=== PATIENT | male | born 1940 | race Caucasian/White ===

== ENCOUNTER 2016-10-01 16:08 | Inpatient (IN) ==
[2016-10-01] MEDS ORDERED: ROCEPHIN 1 GM in SODIUM CHLORIDE 50 ML IV STA (17:00)
[2016-10-01] MEDS: DEXTROSE 5%-1/2NS IV SOLUTION 1,000 ML IV SCH (17:00)
[2016-10-01] MEDS ORDERED: VISTARIL INJ IM PRN (17:06)
[2016-10-01] MEDS ORDERED: ATROPINE SULFATE PFS IVP PRN (17:06)
[2016-10-01] MEDS ORDERED: NITROSTAT SL PRN (17:06)
[2016-10-01] MEDS ORDERED: TYLENOL PO PRN (17:06)
[2016-10-01] MEDS ORDERED: MORPHINE 4 MG/ML SYRINGE IVP PRN (17:06)
[2016-10-01 17:31] LABS: BASOPHILS % (AUTO) 0.5 % (0.0-3.0); HEMATOCRIT 38.8 % (42.0-52.0); HEMOGLOBIN 13.4 g/dl (14.0-18.0); IMMATURE GRANULOCYTE % (AUTO) 0.2 % (0.0-5.0); LYMPHOCYTES # (AUTO) 0.9 K/uL (0.60-3.4); LYMPHOCYTES % (AUTO) 15.2 (10.0-50.0); MEAN CORPUSCULAR HGB CONC 34.5 (31.8-35.4); MEAN CORPUSCULAR VOLUME 89.8 fl (80.0-94.0); MONOCYTES # (AUTO) 0.7 K/uL (0.4-2.0); MONOCYTES % (AUTO) 11.5 (0-10); NEUTROPHILS # (AUTO) 4.1 K/ul (2.0-6.9); NEUTROPHILS % (AUTO) 72.6; PLATELET COUNT 111 10^3/uL (140-440); RED BLOOD COUNT 4.32 10^6/ul (4.70-6.10); WHITE BLOOD COUNT 5.64 K/ul (4.2-10.2)
[2016-10-01 17:34] LABS: ABG BASE EXCESS -2 (-2.0-2.0); ABG HCO3 21.5 (22.0-26.0); ABG PCO2 30.7 mmHg (35-45); ABG PH 7.454 (7.35-7.45); ABG TCO2 22 (22.0-28.0)
[2016-10-01 18:00] LABS: ALBUMIN 3.3 g/dL (3.4-5.0); ALBUMIN/GLOBULIN RATIO 0.97; ANION GAP 12.1; BILIRUBIN,TOTAL 1.73 mg/dL (0.00-1.20); BUN/CREATININE RATIO 14.63; CALCIUM 8.5 mg/dL (8.2-10.2); CREATININE 0.82 mg/dL (0.60-1.10); POTASSIUM 4.1 mmol/L (3.5-5.1); TOTAL PROTEIN 6.7 g/dL (5.8-8.1); TROPONIN I 0.024 ng/ml (0.0000-0.4000)
--- NOTE | 2016-10-01 18:23 | DI ---
EXAM: Chest two view, frontal and lateral views. HISTORY: Fever. Pneumonitis. COMPARISON: 04/09/2015. FINDINGS: Left-sided pacemaker noted. Heart size is normal. Atherosclerotic calcifications presen t. There is no vascular congestion. Calcified granulomatous changes noted. No consolidation, pleu ral effusion or pneumothorax identified. Degenerative changes present in the spine. Since the prio r study, there has been no significant interval change. IMPRESSION: No acute process.
[2016-10-01 18:27] LABS: FLU INTERNAL QC INTERNAL QC VALID; RAPID FLU A NEGATIVE (NEGATIVE); RAPID FLU B NEGATIVE (NEGATIVE)
[2016-10-01 18:46] VITALS: BMI 25.2
[2016-10-01] MEDS ORDERED: ROCEPHIN ONE (19:22)
[2016-10-01] MEDS ORDERED: OMEGA-3 FISH OIL ONE (20:35)
[2016-10-01] MEDS: PRADAXA PO SCH (20:40)
[2016-10-01] MEDS: DOXYCYCLINE HYCLATE PO SCH (20:40)
[2016-10-01] MEDS: TENORMIN PO SCH (20:41)
[2016-10-01] MEDS ORDERED: SOLU-MEDROL 125 MG ONE (20:57)
[2016-10-01] MEDS: SOLU-MEDROL 125 MG IVP SCH (20:58)
[2016-10-01] MEDS ORDERED: FATTY ACIDS PO SCH (21:00)
[2016-10-01] MEDS ORDERED: OMEGA PO SCH (21:00)
[2016-10-01] MEDS ORDERED: [UNRECOGNIZED DRUG - OTHER] PO SCH (21:00)
[2016-10-01] MEDS ORDERED: FISH OIL PO SCH (21:00)
[2016-10-01 21:32] LABS: BILIRUBIN,URINE Negative (NEGATIVE); KETONES,URINE Negative (NEGATIVE); LEUKOCYTE ESTERASE ,URINE Negative (NEGATIVE); NITRITE,URINE Negative (NEGATIVE); PROTEIN,URINE 1+ (NEGATIVE); URINE, BLOOD 1+ (NEGATIVE)
[2016-10-01 21:38] LABS: ADD URINE MICROSCOPIC YES
[2016-10-02 01:49] LABS: TROPONIN I 0.033 ng/ml (0.0000-0.4000)
[2016-10-02] MEDS ORDERED: SOLU-MEDROL 125 MG ONE (04:49)
[2016-10-02] MEDS: DEXTROSE 5%-1/2NS IV SOLUTION 1,000 ML IV SCH ×2 (04:56→16:30)
[2016-10-02] MEDS: SOLU-MEDROL 125 MG IVP SCH (04:56)
[2016-10-02] MEDS: OMEGA-3 FISH OIL PO SCH ×2 (08:44→21:14)
[2016-10-02] MEDS: DOXYCYCLINE HYCLATE PO SCH ×2 (08:44→21:14)
[2016-10-02] MEDS: ASPIRIN EC PO SCH (08:44)
[2016-10-02] MEDS: PRADAXA PO SCH ×2 (08:44→21:13)
[2016-10-02] MEDS: TENORMIN PO SCH (08:44)
[2016-10-02] MEDS: COZAAR PO SCH (08:44)
[2016-10-02] MEDS: ROCEPHIN 1 GM in SODIUM CHLORIDE 50 ML IV SCH (08:45)
[2016-10-02] MEDS: SOLU-CORTEF 250 MG IVP SCH ×2 (13:09→20:28)
[2016-10-03] MEDS: DEXTROSE 5%-1/2NS IV SOLUTION 1,000 ML IV SCH ×2 (03:30→05:09)
[2016-10-03] MEDS: SOLU-CORTEF 250 MG IVP SCH ×2 (05:08→12:46)
[2016-10-03 07:50] LABS: BASOPHILS % (AUTO) 0.1 % (0.0-3.0); HEMATOCRIT 36.9 % (42.0-52.0); HEMOGLOBIN 13.3 g/dl (14.0-18.0); IMMATURE GRANULOCYTE % (AUTO) 0.7 % (0.0-5.0); LYMPHOCYTES # (AUTO) 1.2 K/uL (0.60-3.4); LYMPHOCYTES % (AUTO) 5.9 (10.0-50.0); MEAN CORPUSCULAR HEMOGLOBIN 31.7 pg (27.0-31.0); MEAN CORPUSCULAR VOLUME 88.1 fl (80.0-94.0); MONOCYTES # (AUTO) 1.2 K/uL (0.4-2.0); NEUTROPHILS # (AUTO) 17.5 K/ul (2.0-6.9); NEUTROPHILS % (AUTO) 87.3; PLATELET COUNT 137 10^3/uL (140-440); RED BLOOD COUNT 4.19 10^6/ul (4.70-6.10)
[2016-10-03 07:54] LABS: WHITE BLOOD COUNT 20.04 K/ul (4.2-10.2)
[2016-10-03 07:59] LABS: ALBUMIN/GLOBULIN RATIO 0.86; ANION GAP 8.7; BILIRUBIN,TOTAL 1.03 mg/dL (0.00-1.20); BUN/CREATININE RATIO 19.23; CALCIUM 8.7 mg/dL (8.2-10.2); CREATININE 0.78 mg/dL (0.60-1.10); POTASSIUM 3.7 mmol/L (3.5-5.1); TOTAL PROTEIN 6.5 g/dL (5.8-8.1)
[2016-10-03] MEDS: ROCEPHIN 1 GM in SODIUM CHLORIDE 50 ML IV SCH (08:16)
[2016-10-03] MEDS: PRADAXA PO SCH (08:16)
[2016-10-03] MEDS: DOXYCYCLINE HYCLATE PO SCH (08:16)
[2016-10-03] MEDS: OMEGA-3 FISH OIL PO SCH (08:16)
[2016-10-03] MEDS: COZAAR PO SCH (08:16)
[2016-10-03] MEDS: TENORMIN PO SCH (08:16)
[2016-10-03] MEDS: ASPIRIN EC PO SCH (08:16)
--- NOTE | 2016-10-03 09:52 | PCM.PROG ---
Attending Provider: ATTENDING PROVIDER: Dr. DEBRA DYER DATE OF SERVICE: 10/03/16 SUBJECTIVE: This 76 year old WHITE/ M was hospitalized 10/01/16 with acute pneumonia/bronchitis. The patient states he is feeling better. He states he hasn't coughed much. He has not had any fever since 6 p.m. on the day of admission. He has a good appetite. No complaint of aches or pains. He states he is ready to go home; discussed discharge with the patient. REVIEW OF SYSTEMS: CONSTITUTIONAL: No night sweats. No fatigue, malaise, lethargy. No fever or chills. HEENT: Eyes: No visual changes. No eye pain. No eye discharge. ENT: No runny nose. No epistaxis. No sinus pain. No odynophagia. No congestion. RESPIRATORY: No cough, no congestion. No hemoptysis. CARDIOVASCULAR: No angina symptoms. No CHF symptoms. No atypical chest pain for CAD. No palpitations. No shortness of breath. GASTROINTESTINAL: No abdominal pain. No nausea or vomiting. No diarrhea or constipation. No hematemesis. No hematochezia. GENITOURINARY: No urgency. No frequency. No dysuria. No hematuria. No obstructive symptoms. No discharge. No pain. No significant abnormal bleeding. MUSCULOSKELETAL: No musculoskeletal pain; no joint swelling. NEUROLOGICAL: Awake, alert, oriented to time, place and person. No headache. No neck pain. No syncope. No seizures. No dizziness. PSYCHIATRIC: Not anxious. No depression. No suicidal thoughts. No homicidal thoughts. SKIN: No rash. No lesions. No wounds. ENDOCRINE: No unexplained weight loss. No weight gain. HEMATOLOGIC/LYMPHATIC: No anemia. No purpura. No petechiae. No prolonged or excessive bleeding. No palpable lymph nodes. PHYSICAL EXAMINATION: GENERAL: The patient is awake, alert and oriented, lying in bed in no distress. VITAL SIGNS: Temperature 97.4 F, Pulse 73, Respiratory Rate 16, BP 135/80, Pulse Ox 96% HEENT: Head normocephalic, atraumatic. Eyes: Extraocular muscles are intact. Pupils are equal, round and reactive to light and accommodation. Ears: No lesions. Nose appeared normal. Throat: No exudate or erythema. NECK: Supple. No JVD, no carotid bruit. No lymphadenopathy or thyromegaly. LUNGS: Clear to auscultation. Percussion note normal. Chest symmetrical. HEART: S1, S2, no S3. No murmurs. No cyanosis or clubbing. No ascites. Pulses: Dorsalis pedis and posterior tibial pulses +1 to +2 both sides. ABDOMEN: Soft. Non-tender. Bowel sounds active. No CVA tenderness. No mass felt. EXTREMITIES: No edema. Full range of motion of all extremities, equal. NEUROLOGIC: No focal deficit. Cranial nerves II through XII are grossly intact. No headache, no double vision or headache. SKIN: Not dry. Intact. Turgor-normal. LYMPHATIC: No palpable lymph nodes/no lymphedema. MUSCULOSKELETAL: Normal joints with no swelling. Muscle tone is normal. LAB REVIEW: 10/01/16 17:20 10/01/16 17:20 ASSESSMENT: 1. Acute pneumonitis resolving 2. Acute bronchitis resolving 3. Ventricular paced rhythm with PVCs PLAN: 1. Possible discharge home today on antibiotics 2. PFT today Plan and coordination of the patient's care discussed in the presence of Computer Project Manager and nurse. CONDITION: Stable SCRIBED BY: Ritesh WINSTON scribed while in presence of service performed by Dr. DEBRA DYER/ALYCE LOVING APRN on 10/03/16 ([id number])
[2016-10-03 10:10] VITALS: BP 141/82; TEMP 97.5
--- NOTE | 2016-10-03 11:54 | PN ---
DATE OF SERVICE: 10/02/16 SUBJECTIVE: The patient is a 76 year old white male hospitalized on 10/01/16 with fever of 102 almost climbed up to 103 with symptoms of sinusitis and bronchitis. The patient also had history fo tick bites. The patient has been treated with IV antibiotics Rocephin and Doxycycline. This morning the patient is feeling a lot better and he is afebrile and his appetite has improved. His hydration status has improved. REVIEW OF SYSTEMS: CONSTITUTIONAL: No night sweats. No fatigue, malaise, lethargy. No fever or chills. HEENT: Eyes: No visual changes. No eye pain. No eye discharge. ENT: No runny nose. No epistaxis. No sinus pain. No sore throat. No odynophagia. No congestion. RESPIRATORY: No cough, no congestion. No hemoptysis. CARDIOVASCULAR: No angina symptoms. No CHF symptoms. No atypical chest pain for CAD. No palpitations. No shortness of breath. GASTROINTESTINAL: No abdominal pain. No nausea or vomiting. No diarrhea or constipation. No hematemesis. No hematochezia. GENITOURINARY: No urgency. No frequency. No dysuria. No hematuria. No obstructive symptoms. No discharge. No pain. No significant abnormal bleeding. MUSCULOSKELETAL: No musculoskeletal pain; no joint swelling. NEUROLOGICAL: No headache. No neck pain. No syncope. No seizures. No dizziness. PSYCHIATRIC: Not anxious. No depression. No suicidal thoughts. No homicidal thoughts. SKIN: No rash. No lesions. No wounds. ENDOCRINE: No unexplained weight loss. No weight gain. HEMATOLOGIC/LYMPHATIC: No anemia. No purpura. No petechiae. No prolonged or excessive bleeding. No palpable lymph nodes. PHYSICAL EXAMINATION: GENERAL: The patient is oriented to time, place and person. VITAL SIGNS: Temperature 97, pulse 73, respiratory rate 16, blood pressure 123/ 76 and pulse ox 96%. HEENT: Head normocephalic, atraumatic. Eyes: Extraocular muscles are intact. Pupils are equal, round and reactive to light and accommodation. Ears: No lesions. Nose appeared normal. Throat: No exudate or erythema. NECK: Supple. No JVD, no carotid bruit. No lymphadenopathy or thyromegaly. LUNGS: Decreased breath sounds but clear to auscultation. Percussion note normal. Chest symmetrical. HEART: S1, S2, no S3. No murmurs. No cyanosis or clubbing. No ascites. Pulses: Dorsalis pedis and posterior tibial pulses +1 to +2 both sides. ABDOMEN: Soft. Nontender. Bowel sounds active. No CVA tenderness. No mass felt. EXTREMITIES: No edema. Full range of motion of all extremities, equal. NEUROLOGIC: No focal deficit. Cranial nerves II through XII are grossly intact. No headache, no double vision or headache. SKIN: Not dry. Intact. Turgor - normal. LYMPHATIC: No palpable lymph nodes/no lymphedema. MUSCULOSKELETAL: Normal joints with no swelling. Muscle tone is normal. LABS: hgb 13, hct 38, WBC 5,600 normal differential, creatinine 0.8, BUN 12, potassium 4.1, glucose 154 ASSESSMENT: 1. Acute pneumonitis/bronchitis seems to be resolving 2. Dehydration, the patient is a lot better and his hydration status has improved. Appetite still not up to par but he feels like he is going to have his breakfast. 3. Chronic lung disease with possibility to asthma 4. Hypertension 5. Pacemaker PLAN: 1. Doxycycline 100mg twice a day 2. Ceftriaxone 1gram Q 24 3. Solu-Medrol 125mg Q 8 hours 4. Solu-Cortef 125mg Q 8 hours 5. Morphine Sulfate 2-4mg IV 6. IV fluids to be continued 7. Pradaxa to be continued 8. Atenolol to be continued CONDITION: Stable TIME SPENT: More than 30 minutes. Plan and coordination of the patient's care discussed in the presence of nurse. ROBERTO CARLOS
--- NOTE | 2016-10-03 13:11 | HP ---
DATE OF SERVICE: 10/01/16 REASON FOR HOSPITALIZATION/HISTORY OF PRESENT ILLNESS: This is a 76-year-old white male who states he had a slight cough on Saturday and has progressively worsened. He started having chills last night with slight shortness of breath. Temperature max was 102. He has had multiple tick bites for greater than 10 days. REVIEW OF SYSTEMS: CONSTITUTIONAL: Fever and fatigue. HEENT: No sinus drainage, no sore throat. RESPIRATORY: Cough. No hemoptysis. CARDIOVASCULAR: Shortness of breath. No atypical chest pain for coronary artery disease. No angina, CHF symptoms, or palpitations. GASTROINTESTINAL: No melena or abdominal pain. No GERD. GENITOURINARY: No hematuria, no prostatism, no polyuria. FISHING GUIDE: No blackout, no dizziness, no headache, no double vision. MUSCULOSKELETAL: Osteoarthritic pain. ENDOCRINE: Weight loss of 3 lbs. SKIN: Not dry, no rash. PSYCHIATRIC: Not anxious, no depression, no suicidal thoughts, no homicidal thoughts. PAST MEDICAL HISTORY: 1. CA prostate 2. Atrial fibrillation 3. Pacemaker 4. Asthma 5. Hyperglycemia 6. Malignant melanoma 7. Left ventricular ejection fraction 45% PAST SURGICAL HISTORY: 1. Gallbladder 2. Prostate surgery 1990 3. Pacemaker SOCIAL HISTORY: . Nonsmoker. No alcohol use. No ilicit drug use. Two children. Retired. FAMILY HISTORY: Father at age 87. Mother from a car accident. Three brothers. Five sisters. MEDICATIONS: 1. Atenolol 50 mg p.o. once daily at bedtime 2. Cozaar 100 mg one p.o. daily a.m. 3. Pravastatin 40 mg p.o. once daily 4. Pradaxa 150 mg two times per day ALLERGIES: SULFA PHYSICAL EXAMINATION: V/S: Pulse 82, BP 144/80, temperature 102.2, 02 sat 97%. Weight 165.2. Height 5 '8". BMI 25.1. GENERAL APPEARANCE: Oriented times three. HEENT: Normal. NECK: No JVP, no bruits. RESPIRATORY: Lungs are clear with decreased breath sounds. CARDIOVASCULAR: S1, S2, no S3, no murmurs. No cyanosis, clubbing. No ascites. GI/ABDOMEN: No tenderness. Bowel sounds are active. EXTREMITIES: No edema, pulses +1, equal. FISHING GUIDE: Deep tendon reflexes, sensory, motor and gait all normal. RECTAL/PROSTATE: 2 (0.3). Dr. Jimenez 03/14 endoscopy. ASSESSMENT: 1. ACUTE PNEUMONITIS/BRONCHITIS 2. FEBRILE ILLNESS, PLEURITIC PAIN CENTER OF CHEST 3. ATRIAL FIBRILLATION ON PRADAXA 4. CANCER, PROSTATE 5. HYPERGLYCEMIA 6. MALIGNANT MELANOMA 7. PACEMAKER, DR. MCNAIR 8. LEFT VENTRICULAR EJECTION FRACTION 45% WITH HYPOKINETIC LV 9. ASTHMA PLAN: 1. Admit 2. Routine telemetry orders 3. Regular diet 4. Continue all home medications 5. Rapid flu A/B test 6. Solu-Cortef 125 mg IV q.8hourly 7. Lyme serology 8. Doxycycline 100 mg p.o. b.i.d. daily 9. Rocephin 1 gm IV PB now and 24 hourly 10. Sputum for culture and sensitivity 11. Blood cultures times two 12. Oxygen 1 to 2L 13. ABG on room air 14. Daily CBC and CMP 15. IV fluids 1000 cc D5 1/2 NS 12 hourly TIME SPENT: More than 70 minutes. MTDD
--- NOTE | 2016-10-04 15:14 | DS ---
DATE OF SERVICE: 10/03/16 FINAL DIAGNOSIS: 1. Acute pneumonitis/bronchitis 2. Hypertension 3. Dyslipidemia 4. Atrial fibrillation 5. Cardiomyopathy 6. Mild Anemia 7. Glucose intolerance 8. Prostate cancer 9. Malignant Melanoma 10. Asthma 11. Non-smoker 12. Pacemaker insertion 13. Prostate Surgery, 1990 14. Cholecystectomy LAST VITALS: Temperature 97.5, pulse 74, respiratory rate 16, blood pressure 141/82 and pulse ox 96%. DISCHARGE INSTRUCTIONS: Discharge home today. Return to see Dr. Delarosa in one week. Resume home medications as per list provided by the nursing staff. MEDICATIONS AT DISCHARGE: Tenormin 50mg PO daily Pradaxa 150mg PO twice a day Doxycycline 100mg PO Q 12 hours [place]-3 Fish oil 1,000mg PO twice a day Cozaar 100mg Po daily Pravastatin 20mg PO daily ALLERGIES: No known allergies NEW PRESCRIPTIONS: Doxycycline 100mg take one tablet by mouth twice daily for 7 days DIET INSTRUCTIONS: Healthy heart ACTIVITY: Get plenty of rest at home. Gradually increase activity level according to toleration. SMOKING: Nonsmoker DISEASE SPECIFIC EDUCATION: Pneumonitis/Bronchitis Home medications New prescriptions Followup Activities Diet HOSPITAL COURSE: The patient is a 76 year old white male hospitalized with acute pneumonitis/ bronchitis with high fever. The patient also had history of a lot of tick bites. The patient's condition improved on Rocephin and Doxycycline. The patient was given intermittent steroids with IV fluids. His appetite has improved and he is up and about. He is feeling a lot better. His cardiovascular status is stable. The patient will be discharged on Doxycycline. CONDITION: Stable TIME SPENT: More than 60 minutes. [facility]
--- NOTE | 2016-10-04 15:16 | PN ---
10/01/16: Level 5 10/02/16: Intermediate 10/03/16: D as in discharge MTDD
[2016-10-08 13:15] LABS: IGG P18 AB Absent (.); IGG P23 AB Absent (.); IGG P28 AB Absent (.); IGG P30 AB Absent (.); IGG P39 AB Absent (.); IGG P41 AB Present (.); IGG P45 AB Absent (.); IGG P58 AB Present (.); IGG P66 AB Absent (.); IGG P93 AB Absent (.); IGM P39 AB Absent (.); IGM P41 AB Absent (.)
[2016-10-08 13:29] LABS: LYME IGG WB INTERP Negative (.); LYME IGM WB INTERP Negative (.)
--- NOTE | 2016-10-08 14:49 | PN ---
DATE OF SERVICE: 10/03/16 SUBJECTIVE: 76-year-old white male hospitalized with acute pneumonitis/bronchitis with high fever, possibility of Ehrichicia exists. The patient's Ehrlichia titers are pending. REVIEW OF SYSTEMS: CONSTITUTIONAL: No night sweats. No fatigue, malaise, lethargy. No fever or chills. HEENT: Eyes: No visual changes. No eye pain. No eye discharge. ENT: No runny nose. No epistaxis. No sinus pain. No sore throat. No odynophagia. No congestion. RESPIRATORY: No cough, no congestion. No hemoptysis. CARDIOVASCULAR: No angina symptoms. No CHF symptoms. No atypical chest pain for CAD. No palpitations. No shortness of breath. GASTROINTESTINAL: No abdominal pain. No nausea or vomiting. No diarrhea or constipation. No hematemesis. No hematochezia. GENITOURINARY: No urgency. No frequency. No dysuria. No hematuria. No obstructive symptoms. No discharge. No pain. No significant abnormal bleeding. MUSCULOSKELETAL: No musculoskeletal pain; no joint swelling. NEUROLOGICAL: No headache. No neck pain. No syncope. No seizures. No dizziness. PSYCHIATRIC: Not anxious. No depression. No suicidal thoughts. No homicidal thoughts. SKIN: No rash. No lesions. No wounds. ENDOCRINE: No unexplained weight loss. No weight gain. HEMATOLOGIC/LYMPHATIC: No anemia. No purpura. No petechiae. No prolonged or excessive bleeding. No palpable lymph nodes. PHYSICAL EXAMINATION: GENERAL: The patient is oriented to time, place and person. VITAL SIGNS: Temperature 97.4, pulse 73, respiratory rate 16, BP 135/80, pulse ox 96%. HEENT: Head normocephalic, atraumatic. Eyes: Extraocular muscles are intact. Pupils are equal, round and reactive to light and accommodation. Ears: No lesions. Nose appeared normal. Throat: No exudate or erythema. NECK: Supple. No JVD, no carotid bruit. No lymphadenopathy or thyromegaly. LUNGS: Decreased breath sounds. Clear to auscultation. Percussion note normal. Chest symmetrical. HEART: S1, S2, no S3. No murmurs. No cyanosis or clubbing. No ascites. Pulses: Dorsalis pedis and posterior tibial pulses +1 to +2 both sides. ABDOMEN: Soft. Nontender. Bowel sounds active. No CVA tenderness. No mass felt. EXTREMITIES: No edema. Full range of motion of all extremities, equal. NEUROLOGIC: No focal deficit. Cranial nerves II through XII are grossly intact. No headache, no double vision or headache. SKIN: Not dry. Intact. Turgor - normal. LYMPHATIC: No palpable lymph nodes/no lymphedema. MUSCULOSKELETAL: Normal joints with no swelling. Muscle tone is normal. LABS: The patient's WBC count is 5,600, hemoglobin 13.4, hematocrit 38, WBC 5,600, normal differential. Creatinine 0.8, BUN 12, potassium 4.1. ASSESSMENT: 1. ACUTE PNEUMONITIS/BRONCHITIS/FEVER RESOLVED. 2. CHRONIC LUNG DISEASE. 3. PACEMAKER. EKG SHOWED NORMAL PACEMAKER FUNCTION, CAPTURING AND SENSING WELL. 4. PFT - FEV1 IS 2.7, 99% OF PREDICTED. PFT'S WERE NORMAL. PLAN: 1. The patient will be discharged home on Doxycycline. CONDITION: Stable. TIME SPENT: More than 30 minutes. Plan and coordination of the patient's care discussed in the presence of nurse. ROBERTO CARLOS
== END 2016-10-03 14:10 | disposition home or self-care (01) | DRG 194 ==
LOC: MEDSURG B 16:08
PROVIDERS: ADMIT Internal Medicine; ATTEND Internal Medicine
DX: J18.9 Pneumonia, unspecified organism (principal); J20.9 Acute bronchitis, unspecified; R50.9 Fever, unspecified; I42.9 Cardiomyopathy, unspecified; R06.02 Shortness of breath; T14.8 Other injury of unspecified body region; W57.XXXA Bitten or stung by nonvenomous insect and other nonvenomous arthropods, initial encounter; I48.91 Unspecified atrial fibrillation; I10 Essential (primary) hypertension; D64.9 Anemia, unspecified; J44.9 Chronic obstructive pulmonary disease, unspecified; E74.39 Other disorders of intestinal carbohydrate absorption; Z95.0 Presence of cardiac pacemaker; Z79.01 Long term (current) use of anticoagulants; Z79.899 Other long term (current) drug therapy; J45.998 Other asthma
CPT/HCPCS: 36415; 80053; 81001; 82550; 82803; 83874; 84484; 85025; 86617; 87040; 87798; 87804; 93005; 93010

== ENCOUNTER 2017-04-06 12:01 | Emergency (ER) | payer OTHER ==
[2017-04-06 12:07] VITALS: BP 148/91; TEMP 97.5; BMI 24.3
[2017-04-06] MEDS ORDERED: LIDOCAINE HCL 1% SDV SUBCUT STA (12:33)
[2017-04-06] MEDS ORDERED: LIDOCAINE HCL 1% SDV ONE (13:36)
--- NOTE | 2017-04-06 14:26 | DI ---
EXAM: RIGHT HAND, 3 VIEWS HISTORY: Hand pain FINDINGS: There is deformity of the distal second metacarpal bone suggesting a mildly displaced hirsch sverse fracture, likely acute. There is separation of the minimal portion of the medial base of the third proximal phalanx extending into the regional joint which is suggestive of a fracture. There is significant DIP osteoarthritis and at least mild osteoarthritis at the first carpal metacarpal joint and the lateral intercarpal articulations. IMPRESSION: Apparent fractures involving the second and third digits. Osteoarthritis.
--- NOTE | 2017-04-06 14:44 | ED.PDOC ---
General ED Provider: Dr. 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 Has sustained lacerations and abrassion to the right hand. Senstaion and movement is still intact. Time Seen by Physician: 14:31 Mode of Arrival: Walk-In Information Source: Patient, Family Exam Limitations: No limitations Primary Care Provider: DEBRA DYER Nursing and Triage Documentation Reviewed and Agree: Yes Skin Complaint Exam - Laceration/Abrasion/Hand Complaint/Exam Location of Injury: Right, Hand, Digit #1, Digit #2, Digit #3, Digit #4 Mechanism of Injury: Laceration, Abrasion Onset/Duration: 1 hour Symptoms Are: Still present Initial Severity: Severe Current Severity: Moderate Aggravating: Movement Alleviating: Compression Associated Signs and Symptoms: Denies: Fever, Chills, Erythema, Numbness, Tingling Related History: Reports: Right hand dominant Hand Picture: 1 - deep laceration with hand muscle visible. 2 - deep laceration with hand muscle visible. 3 - 3 cm deep laceration 4 - skin abrassion 5 - skin abrassion 6 - skin abrassion Differential Diagnoses: Abrasion, Open Fracture, Laceration Review of Systems - Review Of Systems Constitutional: Reports: No symptoms Eyes: Reports: No symptoms Ears, Nose, Mouth, Throat: Reports: No symptoms Respiratory: Reports: No symptoms Cardiac: Reports: No symptoms GI: Reports: No symptoms : Reports: No symptoms Musculoskeletal: Reports: Joint pain Skin: Reports: Bruising, Other (laceration right hand ) Neurological: Reports: Anxiety Endocrine: Reports: No symptoms Hematologic/Lymphatic: Reports: No symptoms All Other Systems: Reviewed and Negative Past Medical History - Past Medical History Previously Healthy: No Endocrine: Reports: Dyslipidemia Cardiovascular: Reports: CAD, Hypertension, A-Fib (on Pradaxa ) Respiratory: Reports: None Hematological: Reports: None Gastrointestinal: Reports: None Genitourinary: Reports: None Neuro/Psych: Reports: None Musculoskeletal: Reports: None Cancer: Reports: Other (prostate 1991) - Surgical History General Surgical History: Reports: Cholecystectomy (1984), Pacemaker (1991), Hernia Repair - Family History Family History: Reports: Unknown - Social History Smoking Status: Never smoker Hx Substance Use: No Alcohol Screening: None - Immunizations Tetanus Shot up to Date: (2010) Physical Exam - Physical Exam Appearance: Ill-appearing Ill-appearing: Mild Pain Distress: Severe Respiratory: Airway patent Musculoskeletal: ROM intact Skin: Warm, Dry Neurological: Sensation intact (no decreased sestation on the right hand laceration. ), Motor intact (Good flexion and extension noted on right hand and digit examination. ) Psychiatric: Anxious Procedures - Laceration/Wound Repair Right hand Wound Description: Irregular Wound Length (cm): 7 cm Wound Width: 3 Wound Depth: 1 Wound Explored: Clean Wound Irrigated: Yes Wound Prep: Saline, Hibiclens Anesthesia: Lidocaine Undermining: Moderate Wound Margins: Revised Wound Repaired With: Sutures Suture Size and Type: 5.0 Ethlone Number of Sutures: 28 (Running. ) Layer Closure?: No Sterile Dressing Applied?: Yes Splint Applied?: Yes Type of Splint Applied: Velcrol Sling Applied?: No Progress: Tolerated well. Right distal thumb Wound Description: Irregular Wound Length (cm): 3 Wound Width: 0.4 Wound Depth: 0.3 Wound Explored: Clean Wound Irrigated: No Wound Prep: Saline, Hibiclens Anesthesia: Lidocaine, Digital nerve block Wound Repaired With: Sutures Suture Size and Type: 4.0 Ethlone Number of Sutures: 9 (Running.) Layer Closure?: No Sterile Dressing Applied?: Yes Splint Applied?: Yes Progress: Tolerated fairly Critical Care Note - Critical Care Note Total Time (mins): 0 Course - Course Orders, Labs, Meds: Orders Category Date Time Status Cephalexin [Keflex] MEDS 04/06/17 14:51 Discontinued 500 mg PO ONCE STA Hydrocodone Bit/Acetaminophen [[place] 7.5-325] MEDS 04/06/17 14:52 Discontinued 1 tab PO ONCE STA Lidocaine HCl/Pf [Lidocaine HCl 1% Sdv] MEDS 04/06/17 12:33 Discontinued 10 ml SUBCUT ONCE STA Lidocaine HCl/Pf [Lidocaine HCl 1% Sdv] MEDS 04/06/17 13:36 Discontinued 5 ml .ROUTE .STK-MED ONE HAND, RIGHT 3 VIEWS Stat RADS 04/06/17 13:57 Completed Medications Discontinued Medications Generic Name Dose Route Start Last Admin Trade Name Elliot PRN Reason Stop Dose Admin Acetaminophen/Hydrocodone Bitart 1 tab 04/06/17 14:52 04/06/17 15:02 [place] 7.5-325 PO 04/06/17 14:53 1 tab ONCE STA Administration Cephalexin 500 mg 04/06/17 14:51 04/06/17 15:02 Keflex PO 04/06/17 14:52 500 mg ONCE STA Administration Lidocaine HCl 10 ml 04/06/17 12:33 04/06/17 12:39 Lidocaine Hcl 1% Sdv SUBCUT 04/06/17 12:34 10 ml ONCE STA Administration Vital Signs: Temp Pulse Resp BP Pulse Ox 04/06/17 12:02 97.5 F L 76 16 148/91 H 97 Departure - Departure Time of Disposition: 14:46 Disposition: HOME SELF-CARE Discharge Problem: Laceration - injury Hand fracture, right Qualifiers: Encounter type: initial encounter Fracture type: closed Qualified Code(s): S62.91XA - Unspecified fracture of right wrist and hand, initial encounter for closed fracture Instructions: Laceration (ED), Finger Fracture (ED) Condition: Stable Pt referred to PMD for follow-up: Yes Additional Instructions: Follow up with PCP for orthopedic referral. Take Medications as prescribed. Prescriptions: Hydrocodone/Acetaminophen [[place] 5-325 Tablet] 1 tab PO Q6HR PRN #14 tablet PRN Reason: PAIN Cephalexin [Keflex] 500 mg PO Q8HR #40 capsule Allergies/Adverse Reactions: Allergies No Known Allergies Allergy (Verified 04/06/17 12:08) Home Medications: Ambulatory Orders Dabigatran Etexilate Mesylate [Pradaxa] 150 mg PO BID 02/05/15 Pravastatin Sodium [Pravastatin Sodium] 20 mg PO DAILY 02/05/15 Losartan Potassium [Cozaar] 100 mg PO DAILY 03/06/16 [place]-3 Fatty Acids/Fish Oil [Fish Oil 1,000 mg Softgel] 1,000 each PO BID 03/06 Atenolol 50 mg PO BEDTIME 10/01/16 Cephalexin [Keflex] 500 mg PO Q8HR #40 capsule 04/06/17 Hydrocodone/Acetaminophen [[place] 5-325 Tablet] 1 tab PO Q6HR PRN #14 tablet 01/13 Disposition Discussed With: Patient, Family
[2017-04-06] MEDS ORDERED: KEFLEX PO STA ×2 (14:46→14:51)
[2017-04-06] MEDS ORDERED: NORCO 7.5-325 PO STA (14:52)
== END 2017-04-06 15:25 | disposition home or self-care (01) ==
LOC: ED 12:01
DX: S61.411A Laceration without foreign body of right hand, initial encounter (principal); S61.012A Laceration without foreign body of left thumb without damage to nail, initial encounter; S62.91XA Unspecified fracture of right hand, initial encounter for closed fracture; W31.1XXA Contact with metalworking machines, initial encounter
CPT/HCPCS: 99283

== ENCOUNTER 2018-06-03 06:42 | Day surgery (SDC) | payer OTHER ==
[2018-06-03 07:08] VITALS: TEMP 98
[2018-06-03] MEDS ORDERED: LIDOCAINE 1% 20 ML MDV ID STA (07:12)
[2018-06-03] MEDS ORDERED: DIPRIVAN 20 ML VIAL IVP ONE (08:15)
[2018-06-03] MEDS ORDERED: VERSED ONE (08:15)
--- NOTE | 2018-06-04 07:52 | OP ---
INDICATIONS FOR PROCEDURE: 78-year-old gentleman presents complaining of bright red blood per rectum. He has a history of polyps with unknown pathology. MEDICATIONS: SEE ANESTHESIA NOTES. PROCEDURE: COLONOSCOPY, SNARE POLYPECTOMY. REPORT: The risks, benefits, alternatives and limitations were discussed in detail with the patient. Informed consent was obtained. After adequate sedation was achieved, digital rectal exam revealed good tone, no masses. The colonoscope was introduced into the rectum and advanced under direct visual guidance to the cecum. The cecum was identified by the appendiceal orifice and IC valve. I then slowly withdrew the scope in a circumferential manner examining the mucosa quite carefully. I looked on the proximal and distal side of folds and flexures as best as possible. I was able to retroflex the scope in the right colon and left colon to increase visualization. The mucosa was unremarkable other than diverticulosis scattered throughout the sigmoid area. In the distal sigmoid there is a 5 mm slightly raised polyp. I removed this by snare technique. In the distal sigmoid and throughout the rectum there were multiple venous blebs and venules. The venules were especially prominent throughout the rectal area. On retroflex view of the anal canal there were small internal hemorrhoids. No other abnormalities were noted. The prep was good. The withdrawal time was 10 minutes and 10 seconds. The patient tolerated the procedure well with stable vital signs and pulse oximetry throughout. IMPRESSION: 1. Small polyp removed. 2. Small internal hemorrhoids. 3. Multiple prominent rectal venules and blebs extending into the sigmoid. 4. Sigmoid diverticulosis. RECOMMENDATIONS: 1. High fiber diet. 2. Office visit as needed. 3. I suggest a daily fiber supplement. 4. I did prescribe rectal rockets for treatment of his hemorrhoids. He tells me the [place] was not able to provide the rectal rockets and substitute a plain old suppository. He has been doing okay lately. I suggest continuation of topical treatment as directed. 5. I will see back in the office as needed. cc: Dr. Washington AZEVEDO
[2018-06-04 12:22] VITALS: BP 127/78
== END 2018-06-03 10:15 | disposition home or self-care (01) ==
LOC: SURG 06:42
PROVIDERS: ATTEND Internal Medicine Gastroenterology
DX: K62.5 Hemorrhage of anus and rectum (principal); K63.5 Polyp of colon; Z80.0 Family history of malignant neoplasm of digestive organs; D12.5 Benign neoplasm of sigmoid colon; K64.9 Unspecified hemorrhoids; K57.30 Diverticulosis of large intestine without perforation or abscess without bleeding

== ENCOUNTER 2018-09-26 08:55 | Outpatient (CLI) | payer OTHER ==
--- NOTE | 2018-09-26 10:03 | CT ---
EXAM: CT Head with and without contrast HISTORY: Headache, sinusitis COMPARISON: 04/21/2009 TECHNIQUE: CT head performed with and without contrast FINDINGS: There is no mass effect, midline shift, or intracranial hemmorhage. Carson white differenti ation is preserved. There is no extra-axial collection. The ventricles, sulci, and basal cisterns a re patent and symmetric. There is chronic ischemic disease of the white matter and cerebral volume l oss. There is no depressed calvarial fracture. The mastoid air cells are clear. The visualized para nasal sinuses are clear. No abnormal area of enhancement. IMPRESSION: 1. No acute intracranial abnormality. No abnormal area of enhancement. 2. Chronic ischemic disease of the white matter and cerebral volume loss.
--- NOTE | 2018-09-26 10:05 | CT ---
EXAM: CT sinuses without contrast HISTORY: Sinusitis COMPARISON: None TECHNIQUE: CT sinuses peripheral intravenous contrast. Coronal and sagittal reformatted images obta ined. FINDINGS: Mastoid air cells clear. Temporal mandibular joints normally aligned. No fracture. Glob es and retrobulbar structures unremarkable. Mild mid lobe thickening of the bilateral maxillary sinu ses inferior aspects. Sphenoid sinuses clear. Ethmoid air cells clear. Frontal sinuses clear. Ost iomeatal units patent. No air-fluid levels in the paranasal sinuses. Mild leftward deviation nasal septum IMPRESSION: Mild maxillary sinusitis. No air-fluid levels.
--- NOTE | 2018-09-26 10:12 | CT ---
EXAM: CT cervical spine without contrast HISTORY: Neck pain COMPARISON: None TECHNIQUE: CT cervical spine performed without intravenous contrast. Coronal and sagittal reformatt ed images obtained. FINDINGS: The vertebral bodies normal height. No fracture. No subluxation. Multilevel marginal os teophyte formation. Multilevel intervertebral disc space narrowing, greatest at C5-C6 where there is severe intervertebral disc space narrowing. Multilevel facet and uncovertebral hypertrophy. Prever tebral soft tissues appear normal. C2-C3: Posterior disc osteophyte complex and facet arthrosis causing mild left neural foraminal narr owing. C3-C4: Posterior disc osteophyte complex and facet arthrosis causing central canal narrowing and sev ere right and moderate to severe left neural foraminal narrowing. C4-C5: Posterior disc osteophyte complex and facet arthrosis causing mild central canal, moderate to severe right and mild left neural foraminal narrowing. C5-C6: Posterior disc osteophyte complex and facet arthrosis causing mild central canal and moderate to severe bilateral neural foraminal narrowing. C6-C7: Posterior disc osteophyte complex and facet arthrosis causing mild central canal and mild liza ateral neural foraminal narrowing. C7-T1: No central canal or neural foraminal narrowing. IMPRESSION: 1. No fracture or subluxation. 2. Chronic discogenic degenerative disease and facet arthrosis. Please see segmental analysis, noti ng multilevel central canal and neural foraminal narrowing.
--- NOTE | 2018-09-26 10:31 | DI ---
EXAM: CHEST FRONTAL AND LATERAL VIEWS HISTORY: Sinusitis. COMPARISON: 10/01/2016 FINDINGS: Heart size remains within normal limits. Left-sided pacemaker unit is stable. There is at least mild atherosclerotic disease. Calcified right paratracheal lymph nodes are again noted. N o acute infiltrates are seen. No vascular congestion. There is no consolidation, visible pleural fl uid or pneumothorax. Bones reveal no acute fracture. IMPRESSION: 1. No acute cardiopulmonary process. 2. Old granulomatous disease.
== END 2018-09-26 08:56 | disposition home or self-care (01) ==
LOC: RAD 08:55
PROVIDERS: ATTEND Internal Medicine
DX: R51 Headache (principal); M54.2 Cervicalgia; J32.9 Chronic sinusitis, unspecified

== ENCOUNTER 2022-06-05 20:05 | Inpatient (IN) ==
--- NOTE | 2022-06-05 20:41 | ED.PDOC ---
General ED Provider: Dr. TANIKA BAEZA Chief Complaint: Fever Stated Complaint: comes to the Er with fever chills for one week. T max 105 at home. Has not taken any Tylenol for it. Has been coughing also Time Seen by Provider: 06/05/22 20:33 Mode of Arrival: Walk-In Information Source: Patient and Family Primary Care Provider: DEBRA DYER MD Nursing and Triage Documentation Reviewed and Agree: Yes Does patient meet sepsis criteria?: No System Inflammatory Response Syndrome: Not Applicable Sepsis Protocol: For patient's 13 years and over: Temp is 96.8 and below OR 101 and greater Pulse >90 BPM Resp >20/minute Acutely Altered Mental Status Are patient's symptoms suggestive of a new infection, such as: -Pneumonia -Skin, Soft Tissue -Endocarditis -UTI -Bone, Joint Infection -Implantable Device -Acute Abdominal Infection -Wound Infection -Meningitis -Blood Stream Catheter Infection -Unknown Respiratory Complaint Exam Respiratory Complaint/Exam Onset/Duration: 1 week Symptoms Are: Still present Timing: Intermittent Initial Severity: Moderate Current Severity: Moderate Location: Chest Character: Reports Non-productive cough Associated Signs and Symptoms: Reports Fever and Chills; Denies Rapid breathing, Dyspnea, Chest pain, Pleuritic chest pain, Wheezing, Hemoptysis, Dizziness, Vomiting or Sore throat Related History: Reports Similar episode History of Healthcare-Acquired Pneumonia: No Pulmonary Embolism Risk Factors: None Cardiac Risk Factors: Reports Hypertension Pseudomonas Risk Factors: Reports None Tuberculosis Risk Factors: Reports None Status Asthmaticus Risk Factors: Reports None Home Oxygen Use: No Recent Stress Test: No Recent Echo/LV Function: No Current Antibiotic Use: No Current Asthma Medication Use: No Respiratory Distress: None Inadequate Respiratory Effort: No Dysphagia Present: No Stridor Present: No JVD Present: No Accessory Muscle Use: No Diminished Breath Sounds: No Sinus Tenderness: None Grunting Respirations: No Kussmaul Respirations: No Differential Diagnoses: Pneumonia, Bronchitis and Influenza Non-Traumatic Chest Pain Syncope: EKG Performed Review of Systems Review Of Systems Constitutional: Reports Chills and Fever Ears, Nose, Mouth, Throat: Reports Nose discharge Respiratory: Reports Cough Cardiac: Reports No symptoms GI: Reports No symptoms : Reports No symptoms Musculoskeletal: Reports No symptoms Skin: Reports No symptoms Neurological: Reports Anxiety All Other Systems: Reviewed and Negative [facility] Medical History Atrial fibrillation Community acquired pneumonia Hypertension Prostate CA Family History FATHER Diabetes BROTHER Cancer Other No pertinent family history Social History Smoking and tobacco status: Never smoker Alcohol intake: never History of recent travel: No Surgical History History of permanent cardiac pacemaker placement S/P TURP Physical Exam Physical Exam Appearance: Reports Well-appearing Ill-appearing: None Pain Distress: None Eyes: Reports [place], EOMI and Conjunctiva clear ENT: Reports Nose normal and Oropharynx normal Neck: Supple Respiratory: Reports Airway patent, Breath sounds clear and Breath sounds equal Cardiovascular: Reports RRR, Pulses normal and No rub GI/: Reports Soft, Nontender and No masses Musculoskeletal: Reports Normal strength, ROM intact and No edema Skin: Reports Warm, Dry and Normal color Neurological: Reports Motor intact, Alert and Oriented Psychiatric: Reports Anxious Interpretation Radiology Interpretation Radiology Interpretation By: Radiologist Radiology Results: Positive Exam Interpreted: CXR Xray Comments: Left lower lobe pneumonia as described. EKG Interpretation Time of EKG #1: 20:49 Rate: Normal Rhythm: Other (wide qrs ) Ectopy: PVCs Aline: Left ST Segment: Normal Interpretation: LBBB Re-Evaluation Re-Evaluation Time of Re-Evaluation: 00:29 Status: Improved Vital Signs Stable: Yes Critical Care Note Critical Care Note Total Critical Care Time (mins): 0 Course Course Hematology/Chemistry: 06/06/22 06:29 06/06/22 06:29 Orders, Labs, Meds: Lab Review 06/05/22 06/05/22 06/05/22 20:30 20:30 20:40 WBC RBC Hgb Hct MCV MCH MCHC RDW Coeff of Adrai Plt Count Immature Gran % (Auto) Neut % (Auto) Lymph % (Auto) Carson % (Auto) Eos % (Auto) Baso % (Auto) Neut # (Auto) Lymph # (Auto) Carson # (Auto) Eos # (Auto) Baso # (Auto) Immature Gran # (Auto) Puncture Site Lbrach Base Excess 4.1 H O2 Saturation 93.3 L ABG pH 7.51 H* ABG pCO2 34.0 L ABG pO2 61.0 L ABG HCO3 27.1 ABG Total CO2 28.1 H Dariel Test Pos Hemoglobin 0.8 Oxyhemoglobin 91.7 L Carboxyhemoglobin 2.4 H Total Hemoglobin 14.6 Sodium Potassium Chloride Carbon Dioxide Anion Gap BUN Creatinine Estimated GFR (MDRD) BUN/Creatinine Ratio Glucose Lactic Acid Calcium Total Bilirubin AST ALT Alkaline Phosphatase Total Creatine Kinase CK-MB (CK-2) CK-MB (CK-2) % Troponin I Total Protein Albumin Globulin Albumin/Globulin Ratio Procalcitonin Influ A Molecular Assay Negative by naat Influ B Molecular Assay Negative by naat SARS CoV-2 RNA Rapid OMID Negative 06/05/22 06/05/22 06/05/22 20:47 20:47 20:47 WBC 9.52 RBC 4.92 Hgb 15.0 Hct 44.7 MCV 90.9 MCH 30.5 MCHC 33.6 RDW Coeff of Adria 14.5 Plt Count 163 Immature Gran % (Auto) 0.3 Neut % (Auto) 82.0 H Lymph % (Auto) 6.4 L Carson % (Auto) 9.8 Eos % (Auto) 1.1 Baso % (Auto) 0.4 Neut # (Auto) 7.8 H Lymph # (Auto) 0.6 Carson # (Auto) 0.9 Eos # (Auto) 0.1 Baso # (Auto) 0.0 Immature Gran # (Auto) 0.0 Puncture Site Base Excess O2 Saturation ABG pH ABG pCO2 ABG pO2 ABG HCO3 ABG Total CO2 Dariel Test Hemoglobin Oxyhemoglobin Carboxyhemoglobin Total Hemoglobin Sodium 134.9 Potassium 3.92 Chloride 99.8 Carbon Dioxide 28.8 Anion Gap 10.22 BUN 15.4 Creatinine 0.86 Estimated GFR (MDRD) 85.00 BUN/Creatinine Ratio 17.90 Glucose 164.2 H Lactic Acid Calcium 8.90 Total Bilirubin 2.69 H AST 38.7 ALT 22.7 Alkaline Phosphatase 73.7 Total Creatine Kinase 305.1 H CK-MB (CK-2) 1.450 CK-MB (CK-2) % 0.4700 Troponin I 0.061 Total Protein 7.56 Albumin 4.18 Globulin 3.38 Albumin/Globulin Ratio 1.23 Procalcitonin < 0.05 Influ A Molecular Assay Influ B Molecular Assay SARS CoV-2 RNA Rapid OMID 06/05/22 20:47 WBC RBC Hgb Hct MCV MCH MCHC RDW Coeff of Adria Plt Count Immature Gran % (Auto) Neut % (Auto) Lymph % (Auto) Carson % (Auto) Eos % (Auto) Baso % (Auto) Neut # (Auto) Lymph # (Auto) Carson # (Auto) Eos # (Auto) Baso # (Auto) Immature Gran # (Auto) Puncture Site Base Excess O2 Saturation ABG pH ABG pCO2 ABG pO2 ABG HCO3 ABG Total CO2 Dariel Test Hemoglobin Oxyhemoglobin Carboxyhemoglobin Total Hemoglobin Sodium Potassium Chloride Carbon Dioxide Anion Gap BUN Creatinine Estimated GFR (MDRD) BUN/Creatinine Ratio Glucose Lactic Acid 1.32 Calcium Total Bilirubin AST ALT Alkaline Phosphatase Total Creatine Kinase CK-MB (CK-2) CK-MB (CK-2) % Troponin I Total Protein Albumin Globulin Albumin/Globulin Ratio Procalcitonin Influ A Molecular Assay Influ B Molecular Assay SARS CoV-2 RNA Rapid OMID Orders Category Date Time Status ADMIT PATIENT INPATIENT .TO [facility] (MONITORED BED) ADMISSION 06/06/22 00:20 Active ABG DRAW REQUEST Stat CARDIO 06/05/22 20:34 Completed EKG-(ED ONLY) Stat CARDIO 06/05/22 20:33 Completed NEBULIZER TREATMENT Stat CARDIO 06/06/22 00:27 Completed ACTIVITY .Up With Assistance CARE 06/06/22 00:20 Active INTAKE & OUTPUT Q8HR CARE 06/06/22 00:20 Active TELEMETRY MONITORING TELE CARE 06/06/22 00:20 Active VITAL SIGNS Q8HR CARE 06/06/22 00:21 Active CARDIAC DIET DIETARY 06/06/22 Breakfast Ordered ED DIRECTOR OF SOCIAL SERVICES APPLIED .ONCE EMERGENCY 06/05/22 20:33 Active ED IV/MEDIPORT/POWERPORT .ONCE EMERGENCY 06/05/22 20:33 Active ABG COOX Stat LAB 06/05/22 20:40 Completed BLOOD CULTURE (ED ONLY) Stat LAB 06/05/22 20:47 Received CBC W/ AUTO DIFF DAILY@0600 LAB 06/06/22 06:29 Completed CBC W/ AUTO DIFF DAILY@0600 LAB 06/07/22 06:00 Ordered CBC W/ AUTO DIFF Stat LAB 06/05/22 20:47 Completed COMPREHENSIVE METABOLIC PANEL DAILY@0600 LAB 06/07/22 06:00 Ordered COMPREHENSIVE METABOLIC PANEL Routine LAB 06/06/22 06:29 Completed COMPREHENSIVE METABOLIC PANEL Stat LAB 06/05/22 20:47 Completed CREATINE KINASE Q8H LAB 06/06/22 06:29 Completed CREATINE KINASE Q8H LAB 06/06/22 14:31 Completed CREATINE KINASE Stat LAB 06/05/22 20:47 Completed LACTIC ACID Stat LAB 06/05/22 20:47 Completed MOLECULAR FLU A & B [FLU A/B MOLECULAR] Stat LAB 06/05/22 20:30 Completed PROCALCITONIN Stat LAB 06/05/22 20:47 Completed SARS COV-2 RNA RAPID OMID Stat LAB 06/05/22 20:30 Completed TROPONIN I Q8H LAB 06/06/22 06:29 Completed TROPONIN I Q8H LAB 06/06/22 14:31 Completed TROPONIN I Stat LAB 06/05/22 20:47 Completed 0.9 % Sodium Chloride [Saline Flush] MEDS 06/05/22 20:33 Active 1 syr IVF PRN PRN Atenolol [Tenormin] MEDS 06/06/22 09:00 Active 50 mg PO DAILY Azithromycin [Zithromax] MEDS 06/06/22 09:00 Active 250 mg PO DAILY Azithromycin [Zithromax] MEDS 06/05/22 21:42 Discontinued 500 mg PO ONCE ONE Ceftriaxone/D5w 1 gm Premix [Rocephin 1 gm/50 ml D5w] MEDS 06/06/22 21:00 Active 1 gm in 50 ml IV BEDTIME Ceftriaxone/D5w 1 gm Premix [Rocephin 1 gm/50 ml D5w] MEDS 06/05/22 21:42 Discontinued 1 gm in 50 ml IV ONCE Ipratropium/Albuterol Neb [Duoneb] MEDS 06/06/22 00:26 Discontinued 3 ml NEB ONCE STA Losartan Potassium [Cozaar] MEDS 06/06/22 09:00 Active 100 mg PO DAILY Methylprednisolone Sod Succ/Pf [Solu-Medrol 125 mg] MEDS 06/06/22 00:26 Discontinued 125 mg IVP ONCE STA Methylprednisolone Sod Succ/Pf [Solu-Medrol 125 mg] MEDS 06/06/22 05:00 Active 125 mg IVP Q8HR Pravastatin Sodium [Pravachol] MEDS 06/06/22 21:00 Active 20 mg PO BEDTIME dabigatran etexilate [Pradaxa] MEDS 06/06/22 09:00 Discontinued 150 mg PO BID RESUSCITATION STATUS Routine OTHERS 06/06/22 00:20 Completed CHEST, 2 VIEWS PA & LAT Stat RADS 06/05/22 20:33 Completed Medications Generic Name Dose Route Start Last Admin Trade Name Freveena PRN Reason Stop Dose Admin Albuterol/Ipratropium 3 ml 06/06/22 07:21 Ipratropium/Albuterol Vial.Neb NEB RTQ6H PRN Wheezing Apixaban 5 mg 06/06/22 09:00 06/06/22 08:42 Apixaban 5 Mg Tab PO 5 mg BID [place] Administration Atenolol 50 mg 06/06/22 09:00 06/06/22 08:42 Atenolol 50 Mg Tablet PO 50 mg DAILY [place] Administration Azithromycin 250 mg 06/06/22 09:00 06/06/22 08:42 Azithromycin 250 Mg Tablet PO 06/09/22 10:00 250 mg DAILY [place] Administration Fish Oil 1,000 mg 06/06/22 09:00 06/06/22 08:42 [place]-3/Dha/Epa/Fish Oil 1,000 Mg Capsule PO 1,000 mg BID [place] Administration CEFTRIAXONE/D5W 1 GM PREMIX 1 gm in 50 mls @ 75 mls/hr 06/06/22 21:00 Rocephin 1 Gm/50 Ml D5w IV 06/09/22 20:59 BEDTIME [place] Sodium Chloride 1,000 mls @ 100 mls/hr 06/06/22 07:30 06/06/22 18:06 Sodium Chloride IV 100 mls/hr .Q10H [place] Administration Losartan Potassium 100 mg 06/06/22 09:00 06/06/22 08:42 Losartan Potassium 100 Mg Tablet PO 100 mg DAILY [place] Administration Methylprednisolone Sodium Succinate 125 mg 06/06/22 05:00 06/06/22 12:30 Methylprednisolone Sod Succ/Pf 125 Mg/2 Ml Vial IVP 125 mg Q8HR [place] Administration Pravastatin Sodium 20 mg 06/06/22 21:00 Pravastatin Sodium 20 Mg Tablet PO BEDTIME [place] Sodium Chloride 1 syr 06/05/22 20:33 0.9% Sodium Chloride 10 Ml Disp.Syrin IVF PRN PRN To flush IV Discontinued Medications Generic Name Dose Route Start Last Admin Trade Name Freq PRN Reason Stop Dose Admin Albuterol/Ipratropium 3 ml 06/06/22 00:26 06/06/22 01:45 Ipratropium/Albuterol Vial.Neb NEB 06/06/22 00:27 3 ml ONCE STA Administration Azithromycin 500 mg 06/05/22 21:42 06/05/22 22:06 Azithromycin 250 Mg Tablet PO 06/05/22 21:43 500 mg ONCE ONE Administration CEFTRIAXONE/D5W 1 GM PREMIX 1 gm in 50 mls @ 75 mls/hr 06/05/22 21:42 06/05/22 22:07 Rocephin 1 Gm/50 Ml D5w IV 06/05/22 22:21 75 mls/hr ONCE STA Administration Methylprednisolone Sodium Succinate 125 mg 06/06/22 00:26 06/06/22 02:39 Methylprednisolone Sod Succ/Pf 125 Mg/2 Ml Vial IVP 06/06/22 00:27 Not Given ONCE STA Non-Formulary Medication 150 mg 06/06/22 09:00 Dabigatran Etexilate [Pradaxa] PO BID [place] Vital Signs: Temp Pulse Resp BP Pulse Ox 06/05/22 20:09 102.3 F H 70 18 147/71 H 90 L Discharge Plan Discharge Patient Disposition: ADMITTED INPATIENT Discharge Problem: Community acquired pneumonia Qualifiers: Laterality: left Lung location: lower lobe of lung Qualified Code(s): J18.9 - Pneumonia, unspecified organism Did you review [place] [employer] for ALL controlled substances?: Not Applicable ED Provider: TANIKA BAEZA Condition: Stable Physician Progress Note: []
[2022-06-05 20:53] LABS: BASOPHILS % (AUTO) 0.4 % (0.0-3.0); EOSINOPHILS # (AUTO) 0.1 K/ul (0.0-0.7); EOSINOPHILS % (AUTO) 1.1 % (0.0-7.0); HEMATOCRIT 44.7 % (42.0-52.0); IMMATURE GRANULOCYTE % (AUTO) 0.3 % (0.0-5.0); LYMPHOCYTES # (AUTO) 0.6 K/uL (0.60-3.4); LYMPHOCYTES % (AUTO) 6.4 (10.0-50.0); MEAN CORPUSCULAR HEMOGLOBIN 30.5 pg (27.0-31.0); MEAN CORPUSCULAR HGB CONC 33.6 (31.8-35.4); MEAN CORPUSCULAR VOLUME 90.9 fl (80.0-94.0); MONOCYTES # (AUTO) 0.9 K/uL (0.4-2.0); MONOCYTES % (AUTO) 9.8 (0-10); NEUTROPHILS # (AUTO) 7.8 K/ul (2.0-6.9); PLATELET COUNT 163 10^3/uL (140-440); RDW COEFFICIENT OF VARIATION 14.5 % (11.6-14.8); RED BLOOD COUNT 4.92 10^6/ul (4.70-6.10); WHITE BLOOD COUNT 9.52 K/ul (4.2-10.2)
[2022-06-05 21:01] LABS: ABG O2 HGB 91.7 % (95-100); BEecf 4.1 (-2.0-3.0); COHb 2.4 (0.5-1.5); HCO3 27.1 (21-28); MetHb 0.8 (0-1.5); TCO2 28.1 (19-24); sO2 93.3 % (94-98); tHb 14.6 g/dl (11.7-17.4)
[2022-06-05 21:08] LABS: ALANINE AMINOTRANSFERASE 22.7 U/L (0-50); ALBUMIN 4.18 g/dL (3.5-5.0); ALKALINE PHOSPHATASE 73.7 U/L (56-119); ASPARTATE AMINO TRANSFERASE 38.7 U/L (17-59); BILIRUBIN,TOTAL 2.69 mg/dL (0.2-1.3); BLOOD UREA NITROGEN 15.4 mg/dL (9-20); CALCIUM 8.9 mg/dL (8.4-10.2); CARBON DIOXIDE 28.8 mmol/L (22-30.0); CHLORIDE 99.8 mmol/L (98-107); CREATINE KINASE 305.1 U/L (55-170); CREATININE 0.86 mg/dL (0.60-1.10); GLUCOSE 164.2 mg/dL (74-106); POTASSIUM 3.92 mmol/L (3.5-5.1); SODIUM 134.9 mmol/L (134.5-145); TOTAL PROTEIN 7.56 g/dL (6.3-8.2)
[2022-06-05 21:10] LABS: MOLECULAR FLU A NEGATIVE BY NAAT (NEGATIVE); MOLECULAR FLU B NEGATIVE BY NAAT (NEGATIVE)
[2022-06-05 21:20] LABS: TROPONIN I 0.061 ng/ml (0.0000-0.120)
[2022-06-05 21:23] LABS: CREATINE KINASE MB 1.45 ng/ml (0.0-2.38)
[2022-06-05 21:25] LABS: SARS COV-2 RNA RAPID NAAT NEGATIVE (NEGATIVE)
[2022-06-05 21:33] LABS: ABG PH 7.51 (7.35-7.45)
--- NOTE | 2022-06-05 21:34 | DI ---
EXAM: PA and lateral chest. HISTORY: Cough. Fever. FINDINGS: There is a two lead pacemaker. The cardiac silhouette is enlarged. The pulmonary vasculat ure is within normal limits. There are left lower lobe infiltrates and minimal consolidation, consis tent with pneumonia. There are calcified granulomas. There is eventration of the right hemidiaphrag m. Impression: Left lower lobe pneumonia as described. Cardiomegaly.
[2022-06-05] MEDS ORDERED: ZITHROMAX PO ONE (21:42)
[2022-06-05] MEDS ORDERED: ROCEPHIN 1 GM/50 ML D5W 1 GM/50 ML BAG IV STA (21:42)
[2022-06-06] MEDS ORDERED: DUONEB NEB STA (00:26)
[2022-06-06] MEDS ORDERED: SOLU-MEDROL 125 MG IVP STA (00:26)
[2022-06-06] MEDS ORDERED: LOVENOX SUBCUT SCH (00:30)
[2022-06-06 01:13] VITALS: BMI 25.5
[2022-06-06] MEDS: SOLU-MEDROL 125 MG IVP SCH ×3 (05:03→21:51)
[2022-06-06 06:33] LABS: BASOPHILS % (AUTO) 0.2 % (0.0-3.0); EOSINOPHILS % (AUTO) 0.1 % (0.0-7.0); HEMOGLOBIN 13.8 g/dl (14.0-18.0); IMMATURE GRANULOCYTE % (AUTO) 0.2 % (0.0-5.0); LYMPHOCYTES # (AUTO) 0.7 K/uL (0.60-3.4); LYMPHOCYTES % (AUTO) 7.7 (10.0-50.0); MEAN CORPUSCULAR HEMOGLOBIN 30.8 pg (27.0-31.0); MEAN CORPUSCULAR HGB CONC 33.7 (31.8-35.4); MEAN CORPUSCULAR VOLUME 91.5 fl (80.0-94.0); MONOCYTES # (AUTO) 0.7 K/uL (0.4-2.0); MONOCYTES % (AUTO) 7.9 (0-10); NEUTROPHILS # (AUTO) 7.2 K/ul (2.0-6.9); NEUTROPHILS % (AUTO) 83.9 % (42.2-75.2); PLATELET COUNT 154 10^3/uL (140-440); RDW COEFFICIENT OF VARIATION 14.3 % (11.6-14.8); RED BLOOD COUNT 4.48 10^6/ul (4.70-6.10); WHITE BLOOD COUNT 8.58 K/ul (4.2-10.2)
[2022-06-06 06:48] LABS: ALANINE AMINOTRANSFERASE 22.7 U/L (0-50); ALBUMIN 3.74 g/dL (3.5-5.0); ALKALINE PHOSPHATASE 62.5 U/L (56-119); ASPARTATE AMINO TRANSFERASE 41.5 U/L (17-59); BILIRUBIN,TOTAL 2.2 mg/dL (0.2-1.3); BLOOD UREA NITROGEN 15.6 mg/dL (9-20); CALCIUM 8.68 mg/dL (8.4-10.2); CARBON DIOXIDE 32.7 mmol/L (22-30.0); CHLORIDE 98.7 mmol/L (98-107); CREATINE KINASE 325.8 U/L (55-170); CREATININE 0.79 mg/dL (0.60-1.10); GLUCOSE 171.5 mg/dL (74-106); POTASSIUM 4.13 mmol/L (3.5-5.1); SODIUM 135.7 mmol/L (134.5-145); TOTAL PROTEIN 7.06 g/dL (6.3-8.2)
[2022-06-06 07:00] LABS: TROPONIN I 0.056 ng/ml (0.0000-0.120)
[2022-06-06 07:09] LABS: CREATINE KINASE MB 2.12 ng/ml (0.0-2.38)
[2022-06-06] MEDS ORDERED: DUONEB NEB PRN (07:21)
[2022-06-06] MEDS: ZITHROMAX PO SCH (08:42)
[2022-06-06] MEDS: ELIQUIS PO SCH ×2 (08:42→21:52)
[2022-06-06] MEDS: COZAAR PO SCH (08:42)
[2022-06-06] MEDS: OMEGA-3 FISH OIL PO SCH ×2 (08:42→21:50)
[2022-06-06] MEDS: TENORMIN PO SCH (08:42)
[2022-06-06] MEDS: SODIUM CHLORIDE 1,000 ML IV SCH ×2 (08:43→18:06)
[2022-06-06] MEDS ORDERED: DABIGATRAN ETEXILATE 150 MG PO SCH (09:00)
[2022-06-06] MEDS ORDERED: NON-FORMULARY MEDICATION (Omega-3 Fatty Acids-Fish Oil [Fish Oil] 1 EACH capsule) PO SCH (09:00)
[2022-06-06] MEDS ORDERED: LASIX IVP SCH (09:00)
--- NOTE | 2022-06-06 09:08 | CT ---
CTA OF THE CHEST WITH CONTRAST HISTORY: Shortness of breath, cough. TECHNIQUE: Precontrast images were obtained for timing of the contrast bolus. Following administrat ion of iodinated IV contrast, axial tomographic sections were obtained from the neck base through the lung bases. Coronal and 3D coronal MIP reformats were performed. Automated CT dose reduction techn ique was utilized. COMPARISON: None. FINDINGS: LINES AND DEVICES: A left-sided pacing device is present. GREAT VESSELS: No gross pulmonary embolism. There is dilatation of the ascending thoracic aorta to 4 .0 cm negative for thoracic aortic dissection. Branch vessels of the upper abdominal aorta appear gr ossly patent. LYMPH NODES: Mildly enlarged lymph nodes are present in the AP window, subcarinal, and bilateral sanchez r distributions as well as the distal pretracheal region. Chronic calcified right hilar nodes present MEDIASTINUM: There is thickening of the mid to upper esophageal wall circumferentially measuring up t o 6 mm in thickness. Mild cardiomegaly. No significant pericardial effusion. AIRWAYS AND LUNGS: The airways are patent but there is diffuse moderate thickening of the bronchial a nd bronchiolar garduno. 7 mm nodule posterior aspect superior segment right lower lobe image 70 of the axial images surrounded by patchy dependent ground-glass opacities. Additional dependent ground-glas s opacities as well as non dependent ground-glass opacities noted in the posterior aspects of the lef t upper lobe and left lower lobe and lingula more suspicious for centrilobular infiltrates and for at electasis. PLEURA: Normal.No effusion. No pneumothorax. CHEST WALL/BREAST: Normal. UPPER ABDOMEN: There is reflux of injected contrast into the IVC and suggesting right heart dysfuncti on. Post cholecystectomy changes noted. There are bilateral renal cysts. Large calcification in the left renal pelvis measuring up to 2 cm consistent with a stone. Punctate nonobstructing stones in t he right kidney. There is a lobulated appearance of the upper pole of the left kidney likely due to post insult cortical defects at the upper pole. BONES: No acute findings. IMPRESSION: 1. Negative for acute pulmonary embolism. 2. Bilateral bronchitis and bronchiolitis associated with scattered left greater than right centrilob ular tree-in-bud infiltrates likely reflecting an infectious or inflammatory process. 3. Mediastinal and hilar adenopathy, possibly reactive. 4. 7 mm nodule posterior aspect superior segment right lower lobe. - Nodule 6-8 mm: Recommend CT in 6-12 months, follow up CT at 18-24 months for individual at high-risk. 5. Moderate circumferential esophageal wall thickening particularly in the mid to upper esophagus may suggest esophagitis or other esophageal pathology. Advise gastrointestinal medicine referral for up per endoscopy or barium swallow. 6. Dilatation of the ascending thoracic aorta to 4 cm. 7. Ancillary findings in the upper abdomen. All CT scans are performed using dose optimization techniques as appropriate to the performed exam an d include at least one of the following: Automated exposure control, adjustment of the mA and/or kV according t o size, and the use of iterative reconstruction technique.
--- NOTE | 2022-06-06 09:49 | PCM.PROG ---
Date Seen by Provider: 06/06/22 Time Seen by Provider: 09:46 Subjective: dx. left pneumonia, right lung nodule, ascending thoracic aneurysm 4cm, pacer, atrial fib, dni Objective: Vitals: T=97.3 F, P=70, R=18, BI=292/69, SPO2=92 HEENT: []conjunctiva clear Neck: []supple Lungs: [] wheezing CVS: []rrr Abdomen: []soft and nontender Extremities: []warm and dry Neurological: []alert and oriented Skin: []pink Lab/Tests/Diagnostic Imaging: [] cta chest no PE per Rad Plan: continue rocephin and zithromax, iv ns 100cc/hr for cpk 325, supplement oxygen, fever control, duo nebs and solumedrol care to Dr Pradhan at 19:00
[2022-06-06 14:57] LABS: CREATINE KINASE 293.9 U/L (55-170)
[2022-06-06 15:10] LABS: TROPONIN I 0.035 ng/ml (0.0000-0.120)
[2022-06-06 15:12] LABS: CREATINE KINASE MB 2.48 ng/ml (0.0-2.38)
[2022-06-06] MEDS: ROCEPHIN 1 GM/50 ML D5W 1 GM/50 ML BAG IV SCH (21:51)
[2022-06-06] MEDS: PRAVACHOL PO SCH (21:53)
[2022-06-07] MEDS: SODIUM CHLORIDE 1,000 ML IV SCH (03:42)
[2022-06-07] MEDS: SOLU-MEDROL 125 MG IVP SCH ×3 (06:00→20:56)
[2022-06-07 06:03] LABS: BASOPHILS % (AUTO) 0.1 % (0.0-3.0); HEMATOCRIT 38.3 % (42.0-52.0); HEMOGLOBIN 13.1 g/dl (14.0-18.0); IMMATURE GRANULOCYTE # (AUTO) 0.1 (0.0-1.0); IMMATURE GRANULOCYTE % (AUTO) 0.5 % (0.0-5.0); LYMPHOCYTES # (AUTO) 0.8 K/uL (0.60-3.4); MEAN CORPUSCULAR HEMOGLOBIN 30.6 pg (27.0-31.0); MEAN CORPUSCULAR HGB CONC 34.2 (31.8-35.4); MEAN CORPUSCULAR VOLUME 89.5 fl (80.0-94.0); MONOCYTES # (AUTO) 0.7 K/uL (0.4-2.0); MONOCYTES % (AUTO) 4.3 (0-10); NEUTROPHILS # (AUTO) 14.9 K/ul (2.0-6.9); NEUTROPHILS % (AUTO) 90.1 % (42.2-75.2); PLATELET COUNT 169 10^3/uL (140-440); RDW COEFFICIENT OF VARIATION 13.9 % (11.6-14.8); RED BLOOD COUNT 4.28 10^6/ul (4.70-6.10); WHITE BLOOD COUNT 16.54 K/ul (4.2-10.2)
[2022-06-07 06:17] LABS: ALANINE AMINOTRANSFERASE 24.4 U/L (0-50); ALBUMIN 3.4 g/dL (3.5-5.0); ALKALINE PHOSPHATASE 69.7 U/L (56-119); ASPARTATE AMINO TRANSFERASE 40.3 U/L (17-59); BILIRUBIN,TOTAL 1.02 mg/dL (0.2-1.3); BLOOD UREA NITROGEN 20.1 mg/dL (9-20); CALCIUM 8.62 mg/dL (8.4-10.2); CARBON DIOXIDE 25.7 mmol/L (22-30.0); CHLORIDE 105.3 mmol/L (98-107); CREATININE 0.76 mg/dL (0.60-1.10); GLUCOSE 281.6 mg/dL (74-106); POTASSIUM 4.02 mmol/L (3.5-5.1); SODIUM 136.8 mmol/L (134.5-145); TOTAL PROTEIN 6.49 g/dL (6.3-8.2)
[2022-06-07 09:16] LABS: ABG O2 HGB 96.2 % (95-100); ABG PH 7.49 (7.35-7.45); BEecf 0.3 (-2.0-3.0); COHb 2.6 (0.5-1.5); HCO3 23.6 (21-28); MetHb 0.8 (0-1.5); TCO2 24.6 (19-24); sO2 97.7 % (94-98); tHb 14.4 g/dl (11.7-17.4)
[2022-06-07] MEDS: PROTONIX PO SCH ×2 (09:41→16:51)
[2022-06-07] MEDS: COZAAR PO SCH (09:41)
[2022-06-07] MEDS: TENORMIN PO SCH (09:41)
[2022-06-07] MEDS: OMEGA-3 FISH OIL PO SCH ×2 (09:41→20:55)
[2022-06-07] MEDS: ZITHROMAX PO SCH (09:41)
[2022-06-07] MEDS: ELIQUIS PO SCH ×2 (09:42→20:56)
--- NOTE | 2022-06-07 10:46 | PCM.PROG ---
Attending Provider: ATTENDING PROVIDER: Dr. DEBRA DYER MD This patient is seen with Jenise Krueger, Nurse Practitioner. DATE OF SERVICE: 06/07/22 SUBJECTIVE: This 82 year old /WHITE M was hospitalized 06/06/22. The patient is resting comfortably. No fever. He has been eating well. He is still with some shortness of breath. REVIEW OF SYSTEMS: CONSTITUTIONAL: Fatigue. No night sweats. No malaise, lethargy. No fever or chills. HEENT: Eyes: No visual changes. No eye pain. No eye discharge. ENT: No runny nose. No epistaxis. No sinus pain. No odynophagia. No congestion. RESPIRATORY: Cough, shortness of breath. No hemoptysis. CARDIOVASCULAR: No angina symptoms. No CHF symptoms. No atypical chest pain for CAD. No palpitations. No orthopnea.. GASTROINTESTINAL: No abdominal pain. No nausea or vomiting. No diarrhea or constipation. No hematemesis. No hematochezia. GENITOURINARY: No urgency. No frequency. No dysuria. No hematuria. No obstructive symptoms. No discharge. No pain. No significant abnormal bleeding. MUSCULOSKELETAL: No musculoskeletal pain; no joint swelling. NEUROLOGICAL: Awake, alert, oriented to time, place and person. No headache. No neck pain. No syncope. No seizures. No dizziness. PSYCHIATRIC: Not anxious. No depression. No suicidal thoughts. No homicidal thoughts. SKIN: No rash. No lesions. No wounds. ENDOCRINE: No unexplained weight loss. No weight gain. HEMATOLOGIC/LYMPHATIC: No anemia. No purpura. No petechiae. No prolonged or excessive bleeding. No palpable lymph nodes. PHYSICAL EXAMINATION: GENERAL: The patient is awake, alert and oriented, lying/sitting in bed in no distress. VITAL SIGNS: Temperature 97.5 F, Pulse 71, Respiratory Rate 16, BP 144/83, Pulse Ox 96% HEENT: Head normocephalic, atraumatic. Eyes: Extraocular muscles are intact. Pupils are equal, round and reactive to light and accommodation. Ears: No lesions. Nose appeared normal. Throat: No exudate or erythema. NECK: Supple. No JVD, no carotid bruit. No lymphadenopathy or thyromegaly. LUNGS: Bilateral rhonchi with rales in the left lower lobe. Clear to auscultation. Percussion note normal. Chest symmetrical. HEART: S1, S2, no S3. No murmurs. No cyanosis or clubbing. No ascites. Pulses: Dorsalis pedis and posterior tibial pulses +1 to +2 both sides. ABDOMEN: Soft. Non-tender. Bowel sounds active. No CVA tenderness. No mass felt. EXTREMITIES: No edema. Full range of motion of all extremities, equal. NEUROLOGIC: No focal deficit. Cranial nerves II through XII are grossly intact. No headache. No double vision. SKIN: Not dry. Intact. Turgor-normal. LYMPHATIC: No palpable lymph nodes/no lymphedema. MUSCULOSKELETAL: Normal joints with no swelling. Muscle tone is normal. LAB REVIEW: 06/07/22 05:53 06/07/22 05:53 06/07/22 05:53: Sodium 136.8, Potassium 4.02, Chloride 105.3, Carbon Dioxide 25.7 D, Anion Gap 9.82, BUN 20.1 H, Creatinine 0.76, Estimated GFR (MDRD) 98.00, BUN/Creatinine Ratio 26.44, Glucose 281.6 H D, Calcium 8.62, Total Bilirubin 1.02, AST 40.3, ALT 24.4, Alkaline Phosphatase 69.7, Total Protein 6.49, Albumin 3.40 L, Globulin 3.09, Albumin/Globulin Ratio 1.10 06/07/22 05:53: WBC 16.54 H D, RBC 4.28 L, Hgb 13.1 L, Hct 38.3 L, MCV 89.5, MCH 30.6, MCHC 34.2, RDW Coeff of Adria 13.9, Plt Count 169, Immature Gran % (Auto) 0.5, Neut % (Auto) 90.1 H, Lymph % (Auto) 5.0 L, [place] % (Auto) 4.3, Eos % (Auto) 0.0, Baso % (Auto) 0.1, Neut # (Auto) 14.9 H, Lymph # (Auto) 0.8, [place] # (Auto) 0.7, Eos # (Auto) 0.0, Baso # (Auto) 0.0, Immature Gran # (Auto) 0.1 06/06/22 14:31: Total Creatine Kinase 293.9 H, CK-MB (CK-2) 2.480 H, CK-MB (CK-2 ) % 0.8400, Troponin I 0.035 ASSESSMENT: Please see below. 1. Left lobar pneumonia. 2. Dehydration. 3. Acute respiratory failure. 4. Atrial fibrillation. PLAN: 1. Protonix 40 mg b.i.d. 2. Duoneb t.i.d. sohan 3. DC IV fluids 4. Repeat ABG on 2L 5. Echocardiogram 6. RSV 7. Repeat chest CT in 6 months Plan and coordination of the patient's care discussed in the presence of Family Engagement Specialist and nurse. TIME SPENT: 35 MINUTES CONDITION: Stable SCRIBED BY: CARLTON YUSUF Living Coach scribed while in presence of service performed by Dr. Dyer/Jenise Krueger APRN on 06/07/22 ([id number])
[2022-06-07 11:48] LABS: RSV MOLECULAR NEGATIVE BY NAAT (NEGATIVE)
[2022-06-07] MEDS: DUONEB NEB SCH ×2 (14:26→19:06)
[2022-06-07] MEDS: PRAVACHOL PO SCH ×2 (20:55→21:00)
[2022-06-07] MEDS: ROCEPHIN 1 GM/50 ML D5W 1 GM/50 ML BAG IV SCH (20:56)
[2022-06-07] MEDS ORDERED: BENADRYL PO ONE (21:00)
[2022-06-08] MEDS: DUONEB NEB SCH ×3 (04:50→19:40)
[2022-06-08 05:50] LABS: BASOPHILS % (AUTO) 0.1 % (0.0-3.0); HEMATOCRIT 39.7 % (42.0-52.0); HEMOGLOBIN 13.4 g/dl (14.0-18.0); IMMATURE GRANULOCYTE # (AUTO) 0.1 (0.0-1.0); IMMATURE GRANULOCYTE % (AUTO) 0.6 % (0.0-5.0); LYMPHOCYTES # (AUTO) 0.9 K/uL (0.60-3.4); LYMPHOCYTES % (AUTO) 4.5 (10.0-50.0); MEAN CORPUSCULAR HEMOGLOBIN 30.7 pg (27.0-31.0); MEAN CORPUSCULAR HGB CONC 33.8 (31.8-35.4); MEAN CORPUSCULAR VOLUME 90.8 fl (80.0-94.0); MONOCYTES # (AUTO) 0.6 K/uL (0.4-2.0); MONOCYTES % (AUTO) 2.8 (0-10); NEUTROPHILS # (AUTO) 19.2 K/ul (2.0-6.9); PLATELET COUNT 192 10^3/uL (140-440); RDW COEFFICIENT OF VARIATION 14.1 % (11.6-14.8); RED BLOOD COUNT 4.37 10^6/ul (4.70-6.10); WHITE BLOOD COUNT 20.89 K/ul (4.2-10.2)
[2022-06-08] MEDS: SOLU-MEDROL 125 MG IVP SCH (05:57)
[2022-06-08] MEDS: PROTONIX PO SCH ×2 (05:57→17:05)
[2022-06-08 06:07] LABS: ALBUMIN 3.66 g/dL (3.5-5.0); ALKALINE PHOSPHATASE 79.6 U/L (56-119); ASPARTATE AMINO TRANSFERASE 40.3 U/L (17-59); BLOOD UREA NITROGEN 21.8 mg/dL (9-20); CALCIUM 9.11 mg/dL (8.4-10.2); CHLORIDE 104.7 mmol/L (98-107); CREATININE 0.81 mg/dL (0.60-1.10); GLUCOSE 310.7 mg/dL (74-106); POTASSIUM 3.72 mmol/L (3.5-5.1); SODIUM 138.2 mmol/L (134.5-145); TOTAL PROTEIN 6.76 g/dL (6.3-8.2)
[2022-06-08 06:14] LABS: ALANINE AMINOTRANSFERASE 35.5 U/L (0-50)
[2022-06-08] MEDS: TENORMIN PO SCH (09:54)
[2022-06-08] MEDS: ZITHROMAX PO SCH (09:54)
[2022-06-08] MEDS: ELIQUIS PO SCH ×2 (09:54→20:29)
[2022-06-08] MEDS: OMEGA-3 FISH OIL PO SCH ×2 (09:54→20:30)
[2022-06-08] MEDS: COZAAR PO SCH (09:54)
[2022-06-08] MEDS: HUMULIN R SUBCUT PRN ×2 (11:26→17:06)
--- NOTE | 2022-06-08 11:32 | PCM.PROG ---
Attending Provider: ATTENDING PROVIDER: Dr. DEBRA DYER MD This patient is seen with Jenise Krueger, Nurse Practitioner. DATE OF SERVICE: 06/08/22 SUBJECTIVE: This 82 year old /WHITE M was hospitalized 06/06/22. Resting comfortably. The patient states he slept better and is feeling better. He did not wear oxygen much yesterday but ABGs were perfect on 2L. He is complaining of pleuritic type pain likely from coughing. REVIEW OF SYSTEMS: CONSTITUTIONAL: Fatigue. No night sweats. No malaise, lethargy. No fever or chills. HEENT: Eyes: No visual changes. No eye pain. No eye discharge. ENT: No runny nose. No epistaxis. No sinus pain. No odynophagia. No congestion. RESPIRATORY: Shortness of breath. Cough. No hemoptysis. CARDIOVASCULAR: Right pleuritic pain. No angina symptoms. No CHF symptoms. No atypical chest pain for CAD. No palpitations. No orthopnea. GASTROINTESTINAL: No abdominal pain. No nausea or vomiting. No diarrhea or constipation. No hematemesis. No hematochezia. GENITOURINARY: No urgency. No frequency. No dysuria. No hematuria. No obstructive symptoms. No discharge. No pain. No significant abnormal bleeding. MUSCULOSKELETAL: No musculoskeletal pain; no joint swelling. NEUROLOGICAL: Awake, alert, oriented to time, place and person. No headache. No neck pain. No syncope. No seizures. No dizziness. PSYCHIATRIC: Not anxious. No depression. No suicidal thoughts. No homicidal thoughts. SKIN: No rash. No lesions. No wounds. ENDOCRINE: No unexplained weight loss. No weight gain. HEMATOLOGIC/LYMPHATIC: No anemia. No purpura. No petechiae. No prolonged or excessive bleeding. No palpable lymph nodes. PHYSICAL EXAMINATION: GENERAL: The patient is awake, alert and oriented, lying/sitting in bed in no distress. VITAL SIGNS: Temperature 97.3 F, Pulse 77, Respiratory Rate 18, BP 126/64, Pulse Ox 96% HEENT: Head normocephalic, atraumatic. Eyes: Extraocular muscles are intact. Pupils are equal, round and reactive to light and accommodation. Ears: No lesions. Nose appeared normal. Throat: No exudate or erythema. NECK: Supple. No JVD, no carotid bruit. No lymphadenopathy or thyromegaly. LUNGS: Diminished breath sounds with rales in the left lower lobe, rhonchi on the right. Percussion note normal. Chest symmetrical. HEART: S1, S2, no S3. No murmurs. No cyanosis or clubbing. No ascites. Pulses: Dorsalis pedis and posterior tibial pulses +1 to +2 both sides. ABDOMEN: Soft. Non-tender. Bowel sounds active. No CVA tenderness. No mass felt. EXTREMITIES: No edema. Full range of motion of all extremities, equal. NEUROLOGIC: No focal deficit. Cranial nerves II through XII are grossly intact. No headache. No double vision. SKIN: Not dry. Intact. Turgor-normal. LYMPHATIC: No palpable lymph nodes/no lymphedema. MUSCULOSKELETAL: Normal joints with no swelling. Muscle tone is normal. LAB REVIEW: 06/08/22 05:38 06/08/22 05:38 06/08/22 05:38: Sodium 138.2, Potassium 3.72, Chloride 104.7, Carbon Dioxide 21.0 L, Anion Gap 16.22, BUN 21.8 H, Creatinine 0.81, Estimated GFR (MDRD) 91.00, BUN/Creatinine Ratio 26.91, Glucose 310.7 H, Calcium 9.11, Total Bilirubin 1.00, AST 40.3, ALT 35.5, Alkaline Phosphatase 79.6, Total Protein 6.76, Albumin 3.66, Globulin 3.10, Albumin/Globulin Ratio 1.18 06/08/22 05:38: WBC 20.89 H, RBC 4.37 L, Hgb 13.4 L, Hct 39.7 L, MCV 90.8, MCH 30.7, MCHC 33.8, RDW Coeff of Adria 14.1, Plt Count 192, Immature Gran % (Auto) 0.6, Neut % (Auto) 92.0 H, Lymph % (Auto) 4.5 L, [place] % (Auto) 2.8, Eos % (Auto) 0.0, Baso % (Auto) 0.1, Neut # (Auto) 19.2 H, Lymph # (Auto) 0.9, [place] # (Auto) 0.6, Eos # (Auto) 0.0, Baso # (Auto) 0.0, Immature Gran # (Auto) 0.1 06/07/22 11:20: RSV Antigen Negative by naat 06/07/22 09:02: Puncture Site Rrad, Base Excess 0.3, O2 Saturation 97.7, ABG pH 7.49 H, ABG pCO2 31.0 L, ABG pO2 91.0, ABG HCO3 23.6, ABG Total CO2 24.6 H, Dariel Test +, Hemoglobin 0.8, Oxyhemoglobin 96.2, Carboxyhemoglobin 2.6 H, Total Hemoglobin 14.4, O2 Delivery Device Cannula, Oxygen Liter Flow 2.00, FiO2 % 28.0 ASSESSMENT: Please see below. 1. Left lobar pneumonia. 2. Atrial fibrillation. 3. Acute respiratory failure. PLAN: 1. Discontinue IV steroids. 2. Continue IV Rocephin through the weekend. 3. Sliding scale t.i.d. 4. Prednisone 20 mg p.o. daily 5. Continue antibiotics. Plan and coordination of the patient's care discussed in the presence of Assistant Quality Manager and nurse. CONDITION: Stable TIME SPENT: 35 MINUTES SCRIBED BY: Ritesh WINSTON scribed while in presence of service performed by Jenise Krueger APRN on 06/08/22 ([id number])
[2022-06-08] MEDS: PRAVACHOL PO SCH (20:30)
[2022-06-08] MEDS: ROCEPHIN 1 GM/50 ML D5W 1 GM/50 ML BAG IV SCH (20:30)
[2022-06-08] MEDS ORDERED: BENADRYL PO ONE (20:43)
[2022-06-09] MEDS: DUONEB NEB SCH ×3 (05:00→19:45)
[2022-06-09 05:29] LABS: BASOPHILS % (AUTO) 0.1 % (0.0-3.0); HEMATOCRIT 38.8 % (42.0-52.0); HEMOGLOBIN 13.2 g/dl (14.0-18.0); IMMATURE GRANULOCYTE # (AUTO) 0.2 (0.0-1.0); IMMATURE GRANULOCYTE % (AUTO) 0.7 % (0.0-5.0); LYMPHOCYTES # (AUTO) 1.1 K/uL (0.60-3.4); LYMPHOCYTES % (AUTO) 5.2 (10.0-50.0); MEAN CORPUSCULAR HEMOGLOBIN 30.8 pg (27.0-31.0); MEAN CORPUSCULAR VOLUME 90.4 fl (80.0-94.0); MONOCYTES # (AUTO) 0.8 K/uL (0.4-2.0); MONOCYTES % (AUTO) 3.8 (0-10); NEUTROPHILS # (AUTO) 18.1 K/ul (2.0-6.9); NEUTROPHILS % (AUTO) 90.2 % (42.2-75.2); PLATELET COUNT 189 10^3/uL (140-440); RDW COEFFICIENT OF VARIATION 14.1 % (11.6-14.8); RED BLOOD COUNT 4.29 10^6/ul (4.70-6.10); WHITE BLOOD COUNT 20.12 K/ul (4.2-10.2)
[2022-06-09] MEDS: PROTONIX PO SCH ×2 (05:50→17:51)
[2022-06-09 05:58] LABS: ALANINE AMINOTRANSFERASE 35.1 U/L (0-50); ALBUMIN 3.37 g/dL (3.5-5.0); ALKALINE PHOSPHATASE 83.1 U/L (56-119); ASPARTATE AMINO TRANSFERASE 38.1 U/L (17-59); BILIRUBIN,TOTAL 0.84 mg/dL (0.2-1.3); BLOOD UREA NITROGEN 24.2 mg/dL (9-20); CALCIUM 8.8 mg/dL (8.4-10.2); CARBON DIOXIDE 27.6 mmol/L (22-30.0); CHLORIDE 105.2 mmol/L (98-107); CREATININE 0.83 mg/dL (0.60-1.10); POTASSIUM 3.9 mmol/L (3.5-5.1); SODIUM 138.8 mmol/L (134.5-145); TOTAL PROTEIN 6.5 g/dL (6.3-8.2)
[2022-06-09] MEDS: HUMULIN R SUBCUT PRN ×3 (06:10→17:51)
[2022-06-09] MEDS: COZAAR PO SCH (08:58)
[2022-06-09] MEDS: OMEGA-3 FISH OIL PO SCH ×2 (08:58→21:01)
[2022-06-09] MEDS: PREDNISONE PO SCH (08:59)
[2022-06-09] MEDS: ELIQUIS PO SCH ×2 (08:59→21:01)
[2022-06-09] MEDS: ZITHROMAX PO SCH (08:59)
[2022-06-09] MEDS: TENORMIN PO SCH (08:59)
[2022-06-09] MEDS ORDERED: PHENERGAN WITH CODEINE 6.25/10 MG/5 ML PO PRN (18:10)
[2022-06-09] MEDS: ROCEPHIN 1 GM/50 ML D5W 1 GM/50 ML BAG IV SCH (21:00)
[2022-06-09] MEDS: PRAVACHOL PO SCH (21:01)
[2022-06-10] MEDS: DUONEB NEB SCH ×3 (05:00→19:35)
[2022-06-10 05:49] LABS: BASOPHILS % (AUTO) 0.3 % (0.0-3.0); HEMATOCRIT 38.6 % (42.0-52.0); HEMOGLOBIN 13.2 g/dl (14.0-18.0); IMMATURE GRANULOCYTE # (AUTO) 0.2 (0.0-1.0); IMMATURE GRANULOCYTE % (AUTO) 1.8 % (0.0-5.0); LYMPHOCYTES # (AUTO) 1.4 K/uL (0.60-3.4); LYMPHOCYTES % (AUTO) 10.2 (10.0-50.0); MEAN CORPUSCULAR HGB CONC 34.2 (31.8-35.4); MEAN CORPUSCULAR VOLUME 90.6 fl (80.0-94.0); MONOCYTES # (AUTO) 0.9 K/uL (0.4-2.0); MONOCYTES % (AUTO) 6.6 (0-10); NEUTROPHILS # (AUTO) 10.7 K/ul (2.0-6.9); NEUTROPHILS % (AUTO) 81.1 % (42.2-75.2); PLATELET COUNT 167 10^3/uL (140-440); RDW COEFFICIENT OF VARIATION 14.2 % (11.6-14.8); RED BLOOD COUNT 4.26 10^6/ul (4.70-6.10); WHITE BLOOD COUNT 13.24 K/ul (4.2-10.2)
[2022-06-10] MEDS: PROTONIX PO SCH ×2 (06:01→17:53)
[2022-06-10 06:02] LABS: ALANINE AMINOTRANSFERASE 31.9 U/L (0-50); ALBUMIN 3.3 g/dL (3.5-5.0); ALKALINE PHOSPHATASE 89.3 U/L (56-119); ASPARTATE AMINO TRANSFERASE 32.1 U/L (17-59); BILIRUBIN,TOTAL 0.99 mg/dL (0.2-1.3); BLOOD UREA NITROGEN 22.5 mg/dL (9-20); CALCIUM 8.4 mg/dL (8.4-10.2); CARBON DIOXIDE 29.4 mmol/L (22-30.0); CHLORIDE 104.2 mmol/L (98-107); CREATININE 0.76 mg/dL (0.60-1.10); GLUCOSE 198.1 mg/dL (74-106); POTASSIUM 3.7 mmol/L (3.5-5.1); SODIUM 138.3 mmol/L (134.5-145); TOTAL PROTEIN 6.26 g/dL (6.3-8.2)
[2022-06-10] MEDS: HUMULIN R SUBCUT PRN ×3 (06:40→17:53)
[2022-06-10] MEDS: TENORMIN PO SCH (09:08)
[2022-06-10] MEDS: OMEGA-3 FISH OIL PO SCH ×2 (09:08→20:37)
[2022-06-10] MEDS: COZAAR PO SCH (09:08)
[2022-06-10] MEDS: ELIQUIS PO SCH ×2 (09:08→20:37)
[2022-06-10] MEDS: PREDNISONE PO SCH (09:08)
--- NOTE | 2022-06-10 12:08 | PN ---
DATE OF SERVICE: 06/06/22 SUBJECTIVE: Patient was transferred to my service today, 06/06/22. Patient is an 82 year old white male hospitalized with pneumonia. Patient's condition seems to be improved. Yesterday his blood gases showed PO2 of 61, PCO2 of 34, PH 7.51 with 93% saturation on room air. Patient had complained of feeling weak, tired with cough, congestion for the last 4-5 days. Patient was already wheezing at night during sleep according to his . REVIEW OF SYSTEMS: CONSTITUTIONAL: Weakness, fatigue is better. No fever or chills. HEENT: Eyes: No visual changes. No eye pain. No eye discharge. ENT: No runny nose. No epistaxis. No sinus pain. No sore throat. No odynophagia. No congestion. RESPIRATORY: Mild cough, no congestion. No hemoptysis. Less shortness of breath. CARDIOVASCULAR: No angina symptoms. No CHF symptoms. No atypical chest pain for CAD. No palpitations. No PND. No orthopnea. GASTROINTESTINAL: Appetite is better. No abdominal pain. No nausea or vomiting. No diarrhea or constipation. No hematemesis. No hematochezia. GENITOURINARY: No urgency. No frequency. No dysuria. No hematuria. No obstructive symptoms. No discharge. No pain. No significant abnormal bleeding. MUSCULOSKELETAL: No musculoskeletal pain; no joint swelling. NEUROLOGICAL: No headache. No neck pain. No syncope. No seizures. No dizziness. PSYCHIATRIC: Not anxious. No depression. No suicidal thoughts. No homicidal thoughts. SKIN: No rash. No lesions. No wounds. ENDOCRINE: No unexplained weight loss. No weight gain. HEMATOLOGIC/LYMPHATIC: No anemia. No purpura. No petechiae. No prolonged or excessive bleeding. No palpable lymph nodes. PHYSICAL EXAMINATION: GENERAL: The patient is in no distress. VITAL SIGNS: Temperature 97.3, pulse 70, respiratory rate 18, blood pressure 130/70, pulse ox 92% HEENT: Head normocephalic, atraumatic. Eyes: Extraocular muscles are intact. Pupils are equal, round and reactive to light and accommodation. Ears: No lesions. Nose appeared normal. Throat: No exudate or erythema. NECK: Supple. No JVD, no carotid bruit. No lymphadenopathy or thyromegaly. LUNGS: Decreased breath sounds with dry crepitation. Percussion note normal. Chest symmetrical. HEART: S1, S2, no S3. No murmurs. No cyanosis or clubbing. No ascites. Pulses: Dorsalis pedis and posterior tibial pulses +1 to +2 bilaterally. ABDOMEN: Soft. Nontender. Bowel sounds active. No CVA tenderness. No mass felt. EXTREMITIES: No edema. Full range of motion of all extremities, equal. NEUROLOGIC: No focal deficit. Cranial nerves II through XII are grossly intact. No headache. No double vision. SKIN: Not dry. Intact. Turgor - normal. LYMPHATIC: No palpable lymph nodes/no lymphedema. MUSCULOSKELETAL: Normal joints with no swelling. Muscle tone is normal. LABS: Hemoglobin 13.8, hematocrit 41, WBC 8,500, normal differential, creatinine 0.7, BUN 15, potassium 4.1. ASSESSMENT: 1. Pneumonia seems to be resolving 2. Chronic lung disease 3. Pacemaker placement. 4. Hypertension 5. Dyslipidemia PLAN: Continue Azithromycin and Rocephin with Prednisone It needs to be noted that patient also has history of polymyalgia rheumatica and has been on steroids. He has underlying rhythm which is atrial fib. He is on Eliquis and side effects of Eliquis discussed including intracranial bleed and GI bleed. No nonsteroidal anti-inflammatory. TIME SPENT: More than 35 minutes. Plan and coordination of the patient's care discussed in the presence of nurse. ROBERTO CARLOS
--- NOTE | 2022-06-10 12:15 | PN ---
DATE OF SERVICE: 06/07/22 SUBJECTIVE: Patient was seen and examined with the nurse practitioner. The patient's condition has improved. His pneumonia seems to be improving. He is feeling a lot better. REVIEW OF SYSTEMS: CONSTITUTIONAL: No night sweats. No fatigue, malaise, lethargy. No fever or chills. HEENT: Eyes: No visual changes. No eye pain. No eye discharge. ENT: No runny nose. No epistaxis. No sinus pain. No sore throat. No odynophagia. No congestion. RESPIRATORY: No cough, no congestion. No hemoptysis. No shortness of breath. CARDIOVASCULAR: No angina symptoms. No CHF symptoms. No atypical chest pain for CAD. No palpitations. No PND. No orthopnea. GASTROINTESTINAL: No abdominal pain. No nausea or vomiting. No diarrhea or constipation. No hematemesis. No hematochezia. GENITOURINARY: No urgency. No frequency. No dysuria. No hematuria. No obstructive symptoms. No discharge. No pain. No significant abnormal bleeding. MUSCULOSKELETAL: No musculoskeletal pain; no joint swelling. NEUROLOGICAL: No headache. No neck pain. No syncope. No seizures. No dizziness. PSYCHIATRIC: Not anxious. No depression. No suicidal thoughts. No homicidal thoughts. SKIN: No rash. No lesions. No wounds. ENDOCRINE: No unexplained weight loss. No weight gain. HEMATOLOGIC/LYMPHATIC: No anemia. No purpura. No petechiae. No prolonged or excessive bleeding. No palpable lymph nodes. PHYSICAL EXAMINATION: GENERAL: The patient is in no distress. HEENT: Head normocephalic, atraumatic. Eyes: Extraocular muscles are intact. Pupils are equal, round and reactive to light and accommodation. Ears: No lesions. Nose appeared normal. Throat: No exudate or erythema. NECK: Supple. No JVD, no carotid bruit. No lymphadenopathy or thyromegaly. LUNGS: Clear to auscultation. Percussion note normal. Chest symmetrical. HEART: S1, S2, no S3. No murmurs. No cyanosis or clubbing. No ascites. Pulses: Dorsalis pedis and posterior tibial pulses +1 to +2 bilaterally. ABDOMEN: Soft. Nontender. Bowel sounds active. No CVA tenderness. No mass felt. EXTREMITIES: No edema. Full range of motion of all extremities, equal. NEUROLOGIC: No focal deficit. Cranial nerves II through XII are grossly intact. No headache. No double vision. SKIN: Not dry. Intact. Turgor - normal. LYMPHATIC: No palpable lymph nodes/no lymphedema. MUSCULOSKELETAL: Normal joints with no swelling. Muscle tone is normal. TIME SPENT: More than 35 minutes. Plan and coordination of the patient's care discussed in the presence of nurse. ROBERTO CARLOS
--- NOTE | 2022-06-10 12:21 | PN ---
DATE OF SERVICE: 06/08/22 SUBJECTIVE: Patient was seen and examined with the nurse practitioner. Patient's condition has improved. He is eating much better. The echo showed borderline LV size enlarged LA cavity ascending aorta by echo, it is 4.0 cm. Findings discussed. His ejection fraction seems to be normal. Normal LV contractility. REVIEW OF SYSTEMS: CONSTITUTIONAL: No night sweats. No fatigue, malaise, lethargy. No fever or chills. HEENT: Eyes: No visual changes. No eye pain. No eye discharge. ENT: No runny nose. No epistaxis. No sinus pain. No sore throat. No odynophagia. No congestion. RESPIRATORY: No cough, no congestion. No hemoptysis. No shortness of breath. CARDIOVASCULAR: No angina symptoms. No CHF symptoms. No atypical chest pain for CAD. No palpitations. No PND. No orthopnea. GASTROINTESTINAL: No abdominal pain. No nausea or vomiting. No diarrhea or constipation. No hematemesis. No hematochezia. GENITOURINARY: No urgency. No frequency. No dysuria. No hematuria. No obstructive symptoms. No discharge. No pain. No significant abnormal bleeding. MUSCULOSKELETAL: No musculoskeletal pain; no joint swelling. NEUROLOGICAL: No headache. No neck pain. No syncope. No seizures. No dizziness. PSYCHIATRIC: Not anxious. No depression. No suicidal thoughts. No homicidal thoughts. SKIN: No rash. No lesions. No wounds. ENDOCRINE: No unexplained weight loss. No weight gain. HEMATOLOGIC/LYMPHATIC: No anemia. No purpura. No petechiae. No prolonged or excessive bleeding. No palpable lymph nodes. PHYSICAL EXAMINATION: GENERAL: The patient is in no distress. HEENT: Head normocephalic, atraumatic. Eyes: Extraocular muscles are intact. Pupils are equal, round and reactive to light and accommodation. Ears: No lesions. Nose appeared normal. Throat: No exudate or erythema. NECK: Supple. No JVD, no carotid bruit. No lymphadenopathy or thyromegaly. LUNGS: Clear to auscultation. Percussion note normal. Chest symmetrical. HEART: S1, S2, no S3. No murmurs. No cyanosis or clubbing. No ascites. Pulses: Dorsalis pedis and posterior tibial pulses +1 to +2 bilaterally. ABDOMEN: Soft. Nontender. Bowel sounds active. No CVA tenderness. No mass felt. EXTREMITIES: No edema. Full range of motion of all extremities, equal. NEUROLOGIC: No focal deficit. Cranial nerves II through XII are grossly intact. No headache. No double vision. SKIN: Not dry. Intact. Turgor - normal. LYMPHATIC: No palpable lymph nodes/no lymphedema. MUSCULOSKELETAL: Normal joints with no swelling. Muscle tone is normal. ASSESSMENT: Patient's condition is stable. PLAN: Continue antibiotics and steroids. TIME SPENT: More than 35 minutes. Plan and coordination of the patient's care discussed in the presence of nurse. ROBERTO CARLOS
[2022-06-10] MEDS: ROCEPHIN 1 GM/50 ML D5W 1 GM/50 ML BAG IV SCH (20:37)
[2022-06-10] MEDS: PRAVACHOL PO SCH (20:37)
[2022-06-10] MEDS ORDERED: VASOTEC IV IVP STA (22:11)
[2022-06-10] MEDS: NORVASC PO SCH (22:30)
[2022-06-11] MEDS: DUONEB NEB SCH ×3 (04:55→19:45)
[2022-06-11 05:38] LABS: BASOPHILS # (AUTO) 0.1 K/uL (0-0.2); BASOPHILS % (AUTO) 0.8 % (0.0-3.0); EOSINOPHILS % (AUTO) 0.3 % (0.0-7.0); HEMATOCRIT 40.5 % (42.0-52.0); HEMOGLOBIN 13.6 g/dl (14.0-18.0); IMMATURE GRANULOCYTE # (AUTO) 0.5 (0.0-1.0); IMMATURE GRANULOCYTE % (AUTO) 4.4 % (0.0-5.0); LYMPHOCYTES # (AUTO) 1.6 K/uL (0.60-3.4); LYMPHOCYTES % (AUTO) 14.6 (10.0-50.0); MEAN CORPUSCULAR HEMOGLOBIN 30.4 pg (27.0-31.0); MEAN CORPUSCULAR HGB CONC 33.6 (31.8-35.4); MEAN CORPUSCULAR VOLUME 90.6 fl (80.0-94.0); MONOCYTES # (AUTO) 0.8 K/uL (0.4-2.0); MONOCYTES % (AUTO) 7.5 (0-10); NEUTROPHILS # (AUTO) 7.9 K/ul (2.0-6.9); NEUTROPHILS % (AUTO) 72.4 % (42.2-75.2); PLATELET COUNT 179 10^3/uL (140-440); RDW COEFFICIENT OF VARIATION 13.8 % (11.6-14.8); RED BLOOD COUNT 4.47 10^6/ul (4.70-6.10); WHITE BLOOD COUNT 10.89 K/ul (4.2-10.2)
[2022-06-11 05:49] LABS: ALANINE AMINOTRANSFERASE 30.3 U/L (0-50); ALBUMIN 3.4 g/dL (3.5-5.0); ALKALINE PHOSPHATASE 86.3 U/L (56-119); BILIRUBIN,TOTAL 1.15 mg/dL (0.2-1.3); BLOOD UREA NITROGEN 19.1 mg/dL (9-20); CALCIUM 8.63 mg/dL (8.4-10.2); CARBON DIOXIDE 32.6 mmol/L (22-30.0); CHLORIDE 101.9 mmol/L (98-107); CREATININE 0.71 mg/dL (0.60-1.10); GLUCOSE 170.7 mg/dL (74-106); SODIUM 138.6 mmol/L (134.5-145); TOTAL PROTEIN 6.49 g/dL (6.3-8.2)
[2022-06-11] MEDS: PROTONIX PO SCH ×2 (05:54→17:58)
[2022-06-11 06:19] LABS: THYROID STIMULATING HORMONE 2.23 uIU/L (0.465-4.68)
[2022-06-11 06:20] LABS: POTASSIUM 3.74 mmol/L (3.5-5.1)
[2022-06-11] MEDS: HUMULIN R SUBCUT PRN ×3 (06:27→18:00)
[2022-06-11] MEDS ORDERED: COZAAR PO SCH (09:00)
[2022-06-11] MEDS: COZAAR PO SCH ×2 (09:01→21:33)
[2022-06-11] MEDS: NORVASC PO SCH (09:01)
[2022-06-11] MEDS: OMEGA-3 FISH OIL PO SCH ×2 (09:02→21:33)
[2022-06-11] MEDS: TENORMIN PO SCH (09:02)
[2022-06-11] MEDS: PREDNISONE PO SCH (09:02)
[2022-06-11] MEDS: ELIQUIS PO SCH ×2 (09:03→21:33)
--- NOTE | 2022-06-11 09:44 | PCM.PROG ---
Attending Provider: ATTENDING PROVIDER: Dr. DEBRA DYER MD This patient is seen with Jenise Krueger, Nurse Practitioner. DATE OF SERVICE: 06/11/22 SUBJECTIVE: This 82 year old /WHITE M was hospitalized 06/06/22. The patient is lying in bed. He has been eating well. He is still coughing quite a bit. He complains of pain with coughing. Blood pressure has been elevated starting yesterday and though the night. He received Norvasc and Vasotec. REVIEW OF SYSTEMS: CONSTITUTIONAL: Weakness. No night sweats. No fatigue, malaise, lethargy. No fever or chills. HEENT: Eyes: No visual changes. No eye pain. No eye discharge. ENT: No runny nose. No epistaxis. No sinus pain. No odynophagia. No congestion. RESPIRATORY: Cough, shortness of breath. No hemoptysis. CARDIOVASCULAR: No angina symptoms. No CHF symptoms. No atypical chest pain for CAD. No palpitations. No orthopnea.. GASTROINTESTINAL: No abdominal pain. No nausea or vomiting. No diarrhea or constipation. No hematemesis. No hematochezia. GENITOURINARY: No urgency. No frequency. No dysuria. No hematuria. No obstructive symptoms. No discharge. No pain. No significant abnormal bleeding. MUSCULOSKELETAL: No musculoskeletal pain; no joint swelling. NEUROLOGICAL: Awake, alert, oriented to time, place and person. No headache. No neck pain. No syncope. No seizures. No dizziness. PSYCHIATRIC: Not anxious. No depression. No suicidal thoughts. No homicidal thoughts. SKIN: No rash. No lesions. No wounds. ENDOCRINE: No unexplained weight loss. No weight gain. HEMATOLOGIC/LYMPHATIC: No anemia. No purpura. No petechiae. No prolonged or excessive bleeding. No palpable lymph nodes. PHYSICAL EXAMINATION: GENERAL: The patient is awake, alert and oriented, lying/sitting in bed in no distress. VITAL SIGNS: Temperature 97.0 F, Pulse 70, Respiratory Rate 18, BP 169/91, Pulse Ox 92% HEENT: Head normocephalic, atraumatic. Eyes: Extraocular muscles are intact. Pupils are equal, round and reactive to light and accommodation. Ears: No lesions. Nose appeared normal. Throat: No exudate or erythema. NECK: Supple. No JVD, no carotid bruit. No lymphadenopathy or thyromegaly. LUNGS: Diminished breath sounds with rhonchi on the left lobe with expiratory wheeze. Percussion note normal. Chest symmetrical. HEART: S1, S2, no S3. No murmurs. No cyanosis or clubbing. No ascites. Pulses: Dorsalis pedis and posterior tibial pulses +1 to +2 both sides. ABDOMEN: Soft. Non-tender. Bowel sounds active. No CVA tenderness. No mass felt. EXTREMITIES: No edema. Full range of motion of all extremities, equal. NEUROLOGIC: No focal deficit. Cranial nerves II through XII are grossly intact. No headache. No double vision. SKIN: Not dry. Intact. Turgor-normal. LYMPHATIC: No palpable lymph nodes/no lymphedema. MUSCULOSKELETAL: Normal joints with no swelling. Muscle tone is normal. LAB REVIEW: 06/11/22 05:15 06/11/22 05:15 06/11/22 05:15: Sodium 138.6, Potassium 3.74, Chloride 101.9, Carbon Dioxide 32.6 H, Anion Gap 7.84, BUN 19.1, Creatinine 0.71, Estimated GFR (MDRD) 106.00, BUN/Creatinine Ratio 26.90, Glucose 170.7 H, Calcium 8.63, Total Bilirubin 1.15, AST 30.0, ALT 30.3, Alkaline Phosphatase 86.3, Total Protein 6.49, Albumin 3.40 L, Globulin 3.09, Albumin/Globulin Ratio 1.10, TSH 2.230 06/11/22 05:15: WBC 10.89 H, RBC 4.47 L, Hgb 13.6 L, Hct 40.5 L, MCV 90.6, MCH 3 0.4, MCHC 33.6, RDW Coeff of Adria 13.8, Plt Count 179, Immature Gran % (Auto) 4.4, Neut % (Auto) 72.4, Lymph % (Auto) 14.6, [place] % (Auto) 7.5, Eos % (Auto) 0.3, Baso % (Auto) 0.8, Neut # (Auto) 7.9 H, Lymph # (Auto) 1.6, [place] # (Auto) 0.8, Eos # (Auto) 0.0, Baso # (Auto) 0.1, Immature Gran # (Auto) 0.5 06/11/22 05:15: Free T4 0.97 06/11/22 05:15: Hemoglobin A1c 7.53 H ASSESSMENT: Please see below. 1. Left pneumonia 2. Atrial fibrillation 3. Hypertension 4. Shortness of breath 5. Incentive spirometry PLAN: 1. Split Losartan 50 mg b.i.d. 2. Cough syrup at nighttime [place] and p.r.n. 3. PFT. 4. Two-view chest x-ray. Plan and coordination of the patient's care discussed in the presence of Food Tray Assembler and nurse. TIME SPENT: 35 MINUTES CONDITION: Stable SCRIBED BY: Ritesh WINSTON scribed while in presence of service performed by Jenise Krueger APRN on 06/11/22 ([id number])
--- NOTE | 2022-06-11 09:48 | DI ---
EXAM: CHEST TWO-VIEW HISTORY: Cough COMPARISON: 06/05/2022 FINDINGS: PA and lateral views the chest were obtained. The lungs are clear. Cardiac silhouette is normal in size. Vascular calcifications present in the aortic arch. Pacing device present soft tis sues of the left chest. Cardiac monitoring leads are present. Surgical clips are present from marcell cystectomy. Granulomatous calcifications are noted in the right paratracheal and subcarinal region. IMPRESSION: Negative chest. No active cardiopulmonary disease
[2022-06-11] MEDS ORDERED: PHENERGAN WITH CODEINE 6.25/10 MG/5 ML PO SCH (21:00)
[2022-06-11] MEDS: ROCEPHIN 1 GM/50 ML D5W 1 GM/50 ML BAG IV SCH (21:32)
[2022-06-11] MEDS: PRAVACHOL PO SCH (21:33)
[2022-06-12] MEDS: DUONEB NEB SCH ×2 (04:50→14:05)
[2022-06-12 05:36] LABS: BASOPHILS # (AUTO) 0.1 K/uL (0-0.2); BASOPHILS % (AUTO) 0.6 % (0.0-3.0); EOSINOPHILS % (AUTO) 0.4 % (0.0-7.0); HEMATOCRIT 38.6 % (42.0-52.0); IMMATURE GRANULOCYTE # (AUTO) 0.5 (0.0-1.0); IMMATURE GRANULOCYTE % (AUTO) 4.6 % (0.0-5.0); LYMPHOCYTES % (AUTO) 10.2 (10.0-50.0); MEAN CORPUSCULAR HEMOGLOBIN 30.9 pg (27.0-31.0); MEAN CORPUSCULAR HGB CONC 33.7 (31.8-35.4); MEAN CORPUSCULAR VOLUME 91.7 fl (80.0-94.0); MONOCYTES # (AUTO) 0.8 K/uL (0.4-2.0); MONOCYTES % (AUTO) 7.9 (0-10); NEUTROPHILS # (AUTO) 7.7 K/ul (2.0-6.9); NEUTROPHILS % (AUTO) 76.3 % (42.2-75.2); PLATELET COUNT 189 10^3/uL (140-440); RDW COEFFICIENT OF VARIATION 14.1 % (11.6-14.8); RED BLOOD COUNT 4.21 10^6/ul (4.70-6.10); WHITE BLOOD COUNT 10.14 K/ul (4.2-10.2)
[2022-06-12 05:50] LABS: ALANINE AMINOTRANSFERASE 25.6 U/L (0-50); ALBUMIN 2.98 g/dL (3.5-5.0); ALKALINE PHOSPHATASE 93.7 U/L (56-119); ASPARTATE AMINO TRANSFERASE 20.9 U/L (17-59); BILIRUBIN,TOTAL 0.93 mg/dL (0.2-1.3); BLOOD UREA NITROGEN 21.1 mg/dL (9-20); CALCIUM 8.09 mg/dL (8.4-10.2); CARBON DIOXIDE 31.1 mmol/L (22-30.0); CHLORIDE 102.9 mmol/L (98-107); CREATININE 0.75 mg/dL (0.60-1.10); GLUCOSE 219.1 mg/dL (74-106); POTASSIUM 3.75 mmol/L (3.5-5.1); SODIUM 136.3 mmol/L (134.5-145); TOTAL PROTEIN 5.92 g/dL (6.3-8.2)
[2022-06-12] MEDS: PROTONIX PO SCH (06:13)
[2022-06-12] MEDS: HUMULIN R SUBCUT PRN ×2 (06:14→11:42)
[2022-06-12] MEDS ORDERED: ROCEPHIN 1 GM/50 ML D5W 1 GM/50 ML BAG IV ONE (08:26)
[2022-06-12] MEDS: NORVASC PO SCH (08:59)
[2022-06-12] MEDS: OMEGA-3 FISH OIL PO SCH (08:59)
[2022-06-12] MEDS: COZAAR PO SCH (08:59)
[2022-06-12] MEDS: PREDNISONE PO SCH (09:00)
[2022-06-12] MEDS: TENORMIN PO SCH (09:00)
[2022-06-12] MEDS: ELIQUIS PO SCH (09:00)
--- NOTE | 2022-06-12 10:59 | PCM.PROG ---
Attending Provider: ATTENDING PROVIDER: Dr. DEBRA DYER MD This patient is seen with Jenise Krueger, Nurse Practitioner. DATE OF SERVICE: 06/12/22 SUBJECTIVE: This 82 year old /WHITE M was hospitalized 06/06/22. The patient is resting comfortably. He is feeling much better, eating well. No fever. He has been up and walking and is ready to go home. o2 is 92 to 94 on room air will need to do 3-step prior to discharge. Repeat x-ray showed improvement. REVIEW OF SYSTEMS: CONSTITUTIONAL: Fatigue. No night sweats. No malaise, lethargy. No fever or chills. HEENT: Eyes: No visual changes. No eye pain. No eye discharge. ENT: No runny nose. No epistaxis. No sinus pain. No odynophagia. No congestion. RESPIRATORY: Cough. No hemoptysis. No shortness of breath. CARDIOVASCULAR: No angina symptoms. No CHF symptoms. No atypical chest pain for CAD. No palpitations. No orthopnea.. GASTROINTESTINAL: No abdominal pain. No nausea or vomiting. No diarrhea or constipation. No hematemesis. No hematochezia. GENITOURINARY: No urgency. No frequency. No dysuria. No hematuria. No obstructive symptoms. No discharge. No pain. No significant abnormal bleeding. MUSCULOSKELETAL: No musculoskeletal pain; no joint swelling. NEUROLOGICAL: Awake, alert, oriented to time, place and person. No headache. No neck pain. No syncope. No seizures. No dizziness. PSYCHIATRIC: Not anxious. No depression. No suicidal thoughts. No homicidal thoughts. SKIN: No rash. No lesions. No wounds. ENDOCRINE: No unexplained weight loss. No weight gain. HEMATOLOGIC/LYMPHATIC: No anemia. No purpura. No petechiae. No prolonged or excessive bleeding. No palpable lymph nodes. PHYSICAL EXAMINATION: GENERAL: The patient is awake, alert and oriented, lying/sitting in bed in no distress. VITAL SIGNS: Temperature 96.9 F, Pulse 67, Respiratory Rate 18, BP 133/61, Pulse Ox 92% HEENT: Head normocephalic, atraumatic. Eyes: Extraocular muscles are intact. Pupils are equal, round and reactive to light and accommodation. Ears: No lesions. Nose appeared normal. Throat: No exudate or erythema. NECK: Supple. No JVD, no carotid bruit. No lymphadenopathy or thyromegaly. LUNGS: Diminished breath sounds. Improved rhonchi on the left. Percussion note normal. Chest symmetrical. HEART: S1, S2, no S3. No murmurs. No cyanosis or clubbing. No ascites. Pulses: Dorsalis pedis and posterior tibial pulses +1 to +2 both sides. ABDOMEN: Soft. Non-tender. Bowel sounds active. No CVA tenderness. No mass felt. EXTREMITIES: No edema. Full range of motion of all extremities, equal. NEUROLOGIC: No focal deficit. Cranial nerves II through XII are grossly intact. No headache. No double vision. SKIN: Not dry. Intact. Turgor-normal. LYMPHATIC: No palpable lymph nodes/no lymphedema. MUSCULOSKELETAL: Normal joints with no swelling. Muscle tone is normal. LAB REVIEW: 06/12/22 04:49 06/12/22 04:49 06/12/22 04:49: Sodium 136.3, Potassium 3.75, Chloride 102.9, Carbon Dioxide 31.1 H, Anion Gap 6.05, BUN 21.1 H, Creatinine 0.75, Estimated GFR (MDRD) 99.00, BUN/Creatinine Ratio 28.13, Glucose 219.1 H, Calcium 8.09 L, Total Bilirubin 0.93, AST 20.9, ALT 25.6, Alkaline Phosphatase 93.7, Total Protein 5.92 L, Album in 2.98 L, Globulin 2.94, Albumin/Globulin Ratio 1.01 06/12/22 04:49: WBC 10.14, RBC 4.21 L, Hgb 13.0 L, Hct 38.6 L, MCV 91.7, MCH 30.9, MCHC 33.7, RDW Coeff of Adria 14.1, Plt Count 189, Immature Gran % (Auto) 4.6, Neut % (Auto) 76.3 H, Lymph % (Auto) 10.2, [place] % (Auto) 7.9, Eos % (Auto) 0.4, Baso % (Auto) 0.6, Neut # (Auto) 7.7 H, Lymph # (Auto) 1.0, [place] # (Auto) 0.8, Eos # (Auto) 0.0, Baso # (Auto) 0.1, Immature Gran # (Auto) 0.5 ASSESSMENT: Please see below. 1. Acute left pneumonia. 2. Hypertension. 3. Atrial fibrillation. 4. Acute respiratory failure - resolved. PLAN: 1. Discharge home. 2. Prescription for Amlodipine 5 mg daily. 3. Rocephin - today give in the a.m. 4. Omnicef 300 mg b.i.d. times 5 days. 5. Three-step before discharge. 6. Prednisone 10 mg daily times 5 days. 7. Prescription for Albuterol HFA two puffs t.i.d. times 10 days. Plan and coordination of the patient's care discussed in the presence of Shrinker and nurse. TIME SPENT: 35 minutes CONDITION: Stable. SCRIBED BY: Ritesh WINSTON scribed while in presence of service performed by Jenise Krueger APRN on 06/12/22 ([id number])
--- NOTE | 2022-06-12 11:33 | ECHO2D ---
Date of Exam: 06/08/2022 Ordering Physician: DR. DEBRA DYER Room #: 109 Reason for Echo: HTN, HX A-FIB, PACEMAKER, CARDIOMEGALY M-Mode Normal Adult Results LV Dimensions Normal Adult Results AoV Opening excursions >1.6 >1.6 LVEDD-base- 3.5-5.8 5.5 Ao root dimensions 2.0-3.7 3.9 LVESD-base- 3.1-4.6 L. Atrium dimensions 1.9-3.8 5.0 Post. Wall thickness 0.8-1.1 1.2 IV septum (thickness) 0.7-1.2 1.2 Post. Wall excursion 0.72-1.3 NORMAL Septal motion NORMAL Systolic motion R. Ventricular cavity 1.5-2.0 NORMAL LVEF 60% 66% Paradoxical septal wall motion NORMAL 2-D : 2-D M Mode Echocardiogram was performed using apical four chamber and left parasternal long and short axis views. Mitral, tricuspid and aortic valves appear to be normal. Contractility of the left ventricle seems to be normal, so is the cavity size. ENLARGED LEFT ATRIAL CAVITY. Aortic root appears to be normal. There is no pericardial effusion. There is no thrombus noted in the left ventricle or left atrial cavity. COLOR FLOW: MILD MITRAL REGURGITATION M-MODE: MV: NORMAL AV: NORMAL TV: NORMAL PV: CHAMBER SIZE: ENLARGED LEFT ATRIAL CAVITY WALL MOTION: NORMAL PERICARDIUM: NORMAL INTERPRETATION: 1. BORDERLINE LEFT VENTRICLE HYPERTROPHY WITH ENLARGED LEFT ATRIAL CAVITY 2. NORMAL LEFT VENTRICLE CONTRACTILITY 3. LEFT VENTRICLE SIZE 5.5 CM 4. DILATED AORTIC ROOT MILD MTDD
--- NOTE | 2022-06-12 13:22 | DS ---
DATE OF SERVICE: 06/12/22 FINAL DIAGNOSIS: 1. ACUTE LEFT PNEUMONIA 2. HYPERTENSION 3. ATRIAL FIBRILLATION 4. ACUTE RESPIRATORY FAILURE, RESOLVED DISCHARGE INSTRUCTIONS: Followup appointment with Dr. Delarosa's office on 06/21/22 at 9 a.m. Should you have any questions or need to reschedule this you can contact their office at [phone]. They have moved to their new location at [address] [place] [address]. [facility] was utilized to obtain your home oxygen, should you need to contact them you can reach them at [phone]. Be sure to wear your oxygen on 2L with all activity or in times that you feel short of air. MEDICATIONS AT DISCHARGE: Continued: Atenolol 50 mg p.o. daily Pradaxa 150 mg p.o. b.i.d. [place]-3 fatty acids - fish oil 1000 each p.o. b.i.d. Pravastatin 20 mg p.o. bedtime NEW PRESCRIPTIONS: Omicef 300 mg by mouth twice a day for 5 days Prednisone 10 mg by mouth once a day for 5 days Albuterol 2 puffs three times a day for 10 days Amlodipine 5 mg p.o. daily DISCONTINUED MEDICATIONS: Prednisone 7.5 mg p.o. 1800 CHANGED: Losartan (Cozaar) 50 mg p.o. b.i.d. changed from 100 mg oral daily. DIET INSTRUCTIONS: Resume normal diet. ACTIVITY: As tolerated. SMOKING: Never smoker DISEASE SPECIFIC EDUCATION: Followup Medications, new, changed and discontinued Activity Diet HOSPITAL COURSE: This 82-year-old /White M entered through the Emergency Department. Chest x-ray showed left lobar pneumonia. He had been sick for several days with fever and was short of breath. Initial ABG p02 61 and placed on 2L of oxygen/nasal cannula. Initially indicated dehydration and placed on IV fluids along with Rocephin and Zithromax IV. Over the course of several days he slowly improved. He is now satting 92 to 94% on room air. He has been using a nebulizer machine. He has tolerated p.o. steroids for the past 2 days. Blood pressure was elevated so we had to add Norvasc daily and split cozaar to 50 mg b.i.d. and is now well-controlled. He will go home today and will receive Rocephin before discharge and will give Omnicef, Prednisone and Albuterol inhaler. Will also do 3-step prior to discharge and will followup in office next week. SCRIBED BY: CARLTON YUSUF Package Clerk scribed while in presence of service performed by Jenise Krueger APRN on 06/12/22 ([id number]) TIME SPENT: 70 minutes. ROBERTO CARLOS
--- NOTE | 2022-06-12 15:20 | PN ---
DATE OF SERVICE: 06/09/22 SUBJECTIVE: 82 year old white male hospitalized with pneumonia. The patient's condition is steadily improving. He is still coughing. His is sick at home feeling fatigue. REVIEW OF SYSTEMS: CONSTITUTIONAL: No night sweats. No fatigue, malaise, lethargy. No fever or chills. HEENT: Eyes: No visual changes. No eye pain. No eye discharge. ENT: No runny nose. No epistaxis. No sinus pain. No sore throat. No odynophagia. No congestion. RESPIRATORY: Coughing. no congestion. No hemoptysis. Shortness of breath on minimal exertion. CARDIOVASCULAR: No angina symptoms. No CHF symptoms. No atypical chest pain for CAD. No palpitations. No PND. No orthopnea. GASTROINTESTINAL: No abdominal pain. No nausea or vomiting. No diarrhea or constipation. No hematemesis. No hematochezia. GENITOURINARY: No urgency. No frequency. No dysuria. No hematuria. No obstructive symptoms. No discharge. No pain. No significant abnormal bleeding. MUSCULOSKELETAL: No musculoskeletal pain; no joint swelling. NEUROLOGICAL: No headache. No neck pain. No syncope. No seizures. No dizziness. PSYCHIATRIC: Not anxious. No depression. No suicidal thoughts. No homicidal thoughts. SKIN: No rash. No lesions. No wounds. ENDOCRINE: No unexplained weight loss. No weight gain. HEMATOLOGIC/LYMPHATIC: No anemia. No purpura. No petechiae. No prolonged or excessive bleeding. No palpable lymph nodes. PHYSICAL EXAMINATION: VITALS: Temperature 97.2, pulse 76, respiratory rate 20, blood pressure 140/72, pulse ox 96% on room air HEENT: Head normocephalic, atraumatic. Eyes: Extraocular muscles are intact. Pupils are equal, round and reactive to light and accommodation. Ears: No lesions. Nose appeared normal. Throat: No exudate or erythema. NECK: Supple. No JVD, no carotid bruit. No lymphadenopathy or thyromegaly. LUNGS: Mild wheeze bilaterally, expiratory, much less than before. Good air entry. . HEART: S1, S2, no S3. No murmurs. No cyanosis or clubbing. No ascites. Pulses: Dorsalis pedis and posterior tibial pulses +1 to +2 bilaterally. ABDOMEN: Soft. Nontender. Bowel sounds active. No CVA tenderness. No mass felt. EXTREMITIES: No edema. Full range of motion of all extremities, equal. NEUROLOGIC: No focal deficit. Cranial nerves II through XII are grossly intact. No headache. No double vision. SKIN: Not dry. Intact. Turgor - normal. LYMPHATIC: No palpable lymph nodes/no lymphedema. MUSCULOSKELETAL: Normal joints with no swelling. Muscle tone is normal. LABS: Hemoglobin 13.2, hematocrit 32, WBC 20,000, normal differential, creatinine 0.8, BUN 24, potassium 3.9 Patient had echo done which showed LV cavity to be 5.5 cm borderline with enlarged LA cavity, normal LV contractility. Patient had echo done before with ejection fraction of 45% and now is 60%; discussed with the patient. ASSESSMENT: 1. Pneumonia, resolving 2. Leukocytosis could be from steroids 3. Chronic lung disease PLAN: 1. Continue antibiotics, steroids, nebs 2. He is advised to walk in the room and do PFT before discharge TIME SPENT: More than 35 minutes. Plan and coordination of the patient's care discussed in the presence of nurse. ROBERTO CARLOS
--- NOTE | 2022-06-12 15:27 | PN ---
DATE OF SERVICE: 06/10/22 SUBJECTIVE: 82 year old white male hospitalized with pneumonia. The patient's condition is steadily improving. He is a lot better. He is still coughing and has weakness. REVIEW OF SYSTEMS: CONSTITUTIONAL: No night sweats. No fatigue, malaise, lethargy. No fever or chills. HEENT: Eyes: No visual changes. No eye pain. No eye discharge. ENT: No runny nose. No epistaxis. No sinus pain. No sore throat. No odynophagia. No congestion. RESPIRATORY: No cough, no congestion. No hemoptysis. Shortness of breath on exertion. CARDIOVASCULAR: No angina symptoms. No CHF symptoms. No atypical chest pain for CAD. No palpitations. No PND. No orthopnea. GASTROINTESTINAL: Appetite seems to be improving. No abdominal pain. No nausea or vomiting. No diarrhea or constipation. No hematemesis. No hematochezia. GENITOURINARY: No urgency. No frequency. No dysuria. No hematuria. No obstructive symptoms. No discharge. No pain. No significant abnormal bleeding. MUSCULOSKELETAL: No musculoskeletal pain; no joint swelling. NEUROLOGICAL: No headache. No neck pain. No syncope. No seizures. No dizziness. PSYCHIATRIC: Not anxious. No depression. No suicidal thoughts. No homicidal thoughts. SKIN: No rash. No lesions. No wounds. ENDOCRINE: No unexplained weight loss. No weight gain. HEMATOLOGIC/LYMPHATIC: No anemia. No purpura. No petechiae. No prolonged or excessive bleeding. No palpable lymph nodes. PHYSICAL EXAMINATION: VITAL SIGNS: Temperature 97, pulse 70, respiratory rate 18, blood pressure 168/84, pulse ox 98% HEENT: Head normocephalic, atraumatic. Eyes: Extraocular muscles are intact. Pupils are equal, round and reactive to light and accommodation. Ears: No lesions. Nose appeared normal. Throat: No exudate or erythema. NECK: Supple. No JVD, no carotid bruit. No lymphadenopathy or thyromegaly. LUNGS: Decreased breath sounds with a few crepitations at the bases. Percussion note normal. Chest symmetrical. HEART: S1, S2, no S3. No murmurs. No cyanosis or clubbing. No ascites. Pulses: Dorsalis pedis and posterior tibial pulses +1 to +2 bilaterally. ABDOMEN: Soft. Nontender. Bowel sounds active. No CVA tenderness. No mass felt. EXTREMITIES: No edema. Full range of motion of all extremities, equal. NEUROLOGIC: No focal deficit. Cranial nerves II through XII are grossly intact. No headache. No double vision. SKIN: Not dry. Intact. Turgor - normal. LYMPHATIC: No palpable lymph nodes/no lymphedema. MUSCULOSKELETAL: Normal joints with no swelling. Muscle tone is normal. LABS: Hemoglobin 13.2, hematocrit 38, WBC 13,000, normal differential, creatinine 0.7, BUN 22, potassium 3.7 ASSESSMENT: 1. Pneumonia seems to be resolving 2. Chronic lung disease 3. Pacemaker 4. Hypertension 5. Polymyalgia rheumatica PLAN: 1. Continue antibiotics, steroids, nebs 2. Continue Eliquis. Patient has history of atrial flutter fib. Side effects of Eliquis like GI bleed and intracranial bleed discussed. No nonsteroidal anti-inflammatory with Eliquis 3. Patient has hyperglycemia and sugar is running high because of steroids. Will check A1C and thyroid profile. TIME SPENT: More than 35 minutes. Plan and coordination of the patient's care discussed in the presence of nurse. ROBERTO CARLOS
--- NOTE | 2022-06-12 15:30 | PN ---
DATE OF SERVICE: 06/11/22 SUBJECTIVE: Patient was seen and examined with the nurse practitioner. Patient's condition seems to be improving. The pneumonia seems to be resolving. He is up and about. Possibility of discharge tomorrow. REVIEW OF SYSTEMS: CONSTITUTIONAL: No night sweats. No fatigue, malaise, lethargy. No fever or chills. HEENT: Eyes: No visual changes. No eye pain. No eye discharge. ENT: No runny nose. No epistaxis. No sinus pain. No sore throat. No odynophagia. No congestion. RESPIRATORY: No cough, no congestion. No hemoptysis. No shortness of breath. CARDIOVASCULAR: No angina symptoms. No CHF symptoms. No atypical chest pain for CAD. No palpitations. No PND. No orthopnea. GASTROINTESTINAL: No abdominal pain. No nausea or vomiting. No diarrhea or constipation. No hematemesis. No hematochezia. GENITOURINARY: No urgency. No frequency. No dysuria. No hematuria. No obstructive symptoms. No discharge. No pain. No significant abnormal bleeding. MUSCULOSKELETAL: No musculoskeletal pain; no joint swelling. NEUROLOGICAL: No headache. No neck pain. No syncope. No seizures. No dizziness. PSYCHIATRIC: Not anxious. No depression. No suicidal thoughts. No homicidal thoughts. SKIN: No rash. No lesions. No wounds. ENDOCRINE: No unexplained weight loss. No weight gain. HEMATOLOGIC/LYMPHATIC: No anemia. No purpura. No petechiae. No prolonged or excessive bleeding. No palpable lymph nodes. PHYSICAL EXAMINATION: HEENT: Head normocephalic, atraumatic. Eyes: Extraocular muscles are intact. Pupils are equal, round and reactive to light and accommodation. Ears: No lesions. Nose appeared normal. Throat: No exudate or erythema. NECK: Supple. No JVD, no carotid bruit. No lymphadenopathy or thyromegaly. LUNGS: Clear to auscultation. Percussion note normal. Chest symmetrical. HEART: S1, S2, no S3. No murmurs. No cyanosis or clubbing. No ascites. Pulses: Dorsalis pedis and posterior tibial pulses +1 to +2 bilaterally. ABDOMEN: Soft. Nontender. Bowel sounds active. No CVA tenderness. No mass felt. EXTREMITIES: No edema. Full range of motion of all extremities, equal. NEUROLOGIC: No focal deficit. Cranial nerves II through XII are grossly intact. No headache. No double vision. SKIN: Not dry. Intact. Turgor - normal. LYMPHATIC: No palpable lymph nodes/no lymphedema. MUSCULOSKELETAL: Normal joints with no swelling. Muscle tone is normal. . TIME SPENT: More than 35 minutes. Plan and coordination of the patient's care discussed in the presence of nurse. ROBERTO CARLOS
[2022-06-12 16:26] VITALS: BP 133/75; TEMP 97
== END 2022-06-12 16:15 | disposition home or self-care (01) | DRG 194 ==
LOC: ED 20:05 → MEDSURG A 06-06 00:30
PROVIDERS: ADMIT Internal Medicine Geriatric Medicine; ATTEND Internal Medicine
DX: R07.81 Pleurodynia; Z20.822 Contact with and (suspected) exposure to COVID-19; Z66 Do not resuscitate; I71.21 Aneurysm of the ascending aorta, without rupture; J44.0 Chronic obstructive pulmonary disease with (acute) lower respiratory infection; Z95.0 Presence of cardiac pacemaker; J18.9 Pneumonia, unspecified organism; Z79.899 Other long term (current) drug therapy; E86.0 Dehydration; Z51.81 Encounter for therapeutic drug level monitoring; F41.9 Anxiety disorder, unspecified; D72.829 Elevated white blood cell count, unspecified; I48.91 Unspecified atrial fibrillation; R91.8 Other nonspecific abnormal finding of lung field; M35.3 Polymyalgia rheumatica; I10 Essential (primary) hypertension; R06.02 Shortness of breath; E78.5 Hyperlipidemia, unspecified

== ENCOUNTER 2023-03-20 11:07 | Inpatient (IN) ==
[2023-03-20 11:32] VITALS: BMI 23.6
--- NOTE | 2023-03-20 11:35 | ED.PDOC ---
General ED Provider: Dr. SHARLA LARIOS MD Chief Complaint: Shortness of Air Stated Complaint: Patient history of atrial fibrillation, hypertension, previous history of COVID x 2 complains of a productive cough for the past 5 days and tested positive for COVID 4 days ago with a home test. Patient complains of shortness of breath at rest, denies chest pain, fever, chills arthralgia. Time Seen by Provider: 03/20/23 14:00 Mode of Arrival: Walk-In Primary Care Provider: DEBRA DELAROSA MD Nursing and Triage Documentation Reviewed and Agree: Yes Review of Systems Review Of Systems Constitutional: Reports Weakness Eyes: Reports No symptoms Ears, Nose, Mouth, Throat: Reports No symptoms Respiratory: Reports Cough and Shortness of Breath Cardiac: Reports No symptoms GI: Reports No symptoms and Abdomen distended : Reports No symptoms Skin: Reports No symptoms Neurological: Reports Other (Patient complains of generalized weakness for the) Endocrine: Reports No symptoms Hematologic/Lymphatic: Reports No symptoms All Other Systems: Reviewed and Negative [facility] Medical History (Updated 04/02/23 @ 11:52 by SHARLA LARIOS MD) Dyslipidemia Fishoil E78.4 - OTHER HYPERLIPIDEMIA (ICD-10) COVID-19 virus antibody detected 09/2020 R76.8 - Other specified abnormal immunological findings in serum (ICD-10) Herpes zoster left thoracic B02.9 - Zoster without complications (ICD-10) Foot pain, bilateral L>R M79.671 - Pain in right foot (ICD-10) M79.672 - Pain in left foot (ICD-10) Melanoma left arm C43.9 - Malignant melanoma of skin, unspecified (ICD-10) History of COVID-19 Z86.16 - Personal history of COVID-19 (ICD-10) Recurrent UTI N39.0 - Urinary tract infection, site not specified (ICD-10) Family History FATHER Diabetes BROTHER Cancer Other No pertinent family history Social History Smoking and tobacco status: Never smoker Alcohol intake: never Substance use type: does not use Special fran needs: No Agree to transfusion: Yes Adopted: No Caregiver/support person: No Foster care: No Household members: spouse Housing: house Marital status: M Daycare: no daycare Number of children: 3 service: Yes status: retired branch: [employer] senior care: No History of recent travel: No Do you think of yourself as: straight/heterosexual Current gender identity: male Seatbelt use: always Helmet use: No Drives intoxicated or rides with intoxicated driver/guide: No Water heater temperature set < 120 degrees: Yes Working smoke detector in home: Yes Fire extinguisher in home: Yes Carbon monoxide detector in home: Yes Surgical History S/P TURP Z90.79 - Acquired absence of other genital organ(s) (ICD-10) Physical Exam Physical Exam Appearance: Reports Ill-appearing Ill-appearing: Mild Pain Distress: None Eyes: Reports [place], EOMI and Conjunctiva clear ENT: Reports Ears normal, Nose normal and Oropharynx normal Neck: Supple Respiratory: Reports Airway patent, Breath sounds clear and Other (There is no basilar crackles, wheezes, rhonchi. There is no labored breathing, audible wheezes or stridor noted.) Cardiovascular: Reports RRR, Pulses normal, No rub and No murmur GI/: Reports Soft, Nontender, No masses, Bowel sounds normal, No Organomegaly and Other (There is no palpable masses noted.) Musculoskeletal: Reports Normal strength, ROM intact and No edema (There is 1+ pretibial edema noted.) Skin: Reports Warm and Dry Neurological: Reports Sensation intact and Motor intact Psychiatric: Reports Affect appropriate Interpretation EKG Interpretation EKG Interpretation By: ED Physician (Ventricular paced rhythm rate of 70 left axis deviation nonspecific intraventricular block) Time of EKG #1: 11:55 Rate: Normal Rhythm: Sinus Ectopy: None Buck[place]: Left ST Segment: Normal Interpretation: Ventricular paced rhythm normal sinus rhythm rate of 70, left axis deviatio Radiology Interpretation Radiology Interpretation By: Radiologist Radiology Results: No acute changes Exam Interpreted: CXR Xray Comments: Left-sided pacemaker, left greater than right bronchial thickening Radiology Interpretation By: Radiologist Radiology Results: Negative Exam Interpreted: CT Scan Xray Comments: CT of the chest shows no evidence of pulmonary embolism Physician Notification Case Discussed Physician Notified: Discussed with Dr. Frederic Delarosa Time of Notification: 14:48 Comments: Discussed the results of all laboratory data, CT of the chest and portable chest x-ray with recommendations to admit to the hospitalist Physician Notified: Discussed with ADARSH Zimmerman Time of Notification: 14:56 Comments: With recommendations to repeat the troponin emergency room obtain abdominal ultrasound for evaluation of the elevated bilirubin 2.56 Critical Care Note Critical Care Note Total Critical Care Time (mins): 20 Course Course 03/25/23 06:25 03/25/23 06:25 Orders, Labs, Meds: Lab Review 03/20/23 03/20/23 03/20/23 11:35 11:52 13:15 WBC 5.05 RBC 3.52 L Hgb 10.4 L Hct 32.3 L MCV 91.8 MCH 29.5 MCHC 32.2 RDW Coeff of Adria 15.2 H Plt Count 143 Immature Gran % (Auto) 0.4 Neut % (Auto) 80.8 H Lymph % (Auto) 8.9 L [place] % (Auto) 9.7 Eos % (Auto) 0.0 Baso % (Auto) 0.2 Neut # (Auto) 4.1 Lymph # (Auto) 0.5 L [place] # (Auto) 0.5 Eos # (Auto) 0.0 Baso # (Auto) 0.0 Immature Gran # (Auto) 0.0 PT 14.5 H INR 1.41 APTT 53.9 H Sodium 135.0 Potassium 3.53 Chloride 103.5 Carbon Dioxide 23.6 Anion Gap 11.43 BUN 16.6 Creatinine 0.71 Estimated GFR (MDRD) 106.00 BUN/Creatinine Ratio 23.38 Glucose 144.2 H Calcium 8.24 L Ferritin Total Bilirubin 2.56 H AST 124.5 H ALT 159.0 H Alkaline Phosphatase 90.1 Lactate Dehydrogenase Troponin I 0.073 C-Reactive Prot, Quant NT-Pro-B Natriuret Pep 4100 H Total Protein 7.37 Albumin 3.64 Globulin 3.73 Albumin/Globulin Ratio 0.97 Procalcitonin D-Dimer 682.28 H Urine Color Dark Urine Clarity Clear Urine pH 6.0 Ur Specific [place] 1.025 Urine Protein 3+ H Urine Glucose (UA) Negative Urine Ketones Trace H Urine Blood 2+ H Urine Nitrite Positive H Urine Bilirubin 1+ H Urine Urobilinogen >=8.0 Ur Leukocyte Esterase Negative Urine Microscopic RBC 5-10 Urine Microscopic WBC 0-2 Ur Squamous Epith Cells Not present Triple Phos Crystals Trace Urine Bacteria 1+ Urine Mucus 1+ Urine Yeast 1+ Influ A Molecular Assay Negative by naat Influ B Molecular Assay Negative by naat SARS CoV-2 RNA Rapid OMID Positive H 03/20/23 03/21/23 03/21/23 15:03 05:00 06:00 WBC 7.42 RBC 3.55 L Hgb 10.6 L Hct 32.2 L MCV 90.7 MCH 29.9 MCHC 32.9 RDW Coeff of Adria 14.7 Plt Count 161 Immature Gran % (Auto) 0.5 Neut % (Auto) 84.3 H Lymph % (Auto) 6.3 L [place] % (Auto) 8.8 Eos % (Auto) 0.0 Baso % (Auto) 0.1 Neut # (Auto) 6.3 Lymph # (Auto) 0.5 L [place] # (Auto) 0.7 Eos # (Auto) 0.0 Baso # (Auto) 0.0 Immature Gran # (Auto) 0.0 PT INR APTT Sodium 133.6 L Potassium 3.73 Chloride 99.7 Carbon Dioxide 25.6 Anion Gap 12.03 BUN 18.9 Creatinine 0.70 Estimated GFR (MDRD) 107.00 BUN/Creatinine Ratio 27.00 Glucose 202.1 H D Calcium 8.33 L Ferritin Total Bilirubin 2.34 H AST 95.2 H D ALT 129.3 H Alkaline Phosphatase 103.1 Lactate Dehydrogenase Troponin I 0.060 C-Reactive Prot, Quant NT-Pro-B Natriuret Pep Total Protein 7.41 Albumin 3.64 Globulin 3.77 Albumin/Globulin Ratio 0.96 Procalcitonin D-Dimer Urine Color Urine Clarity Urine pH Ur Specific [place] Urine Protein Urine Glucose (UA) Urine Ketones Urine Blood Urine Nitrite Urine Bilirubin Urine Urobilinogen Ur Leukocyte Esterase Urine Microscopic RBC Urine Microscopic WBC Ur Squamous Epith Cells Triple Phos Crystals Urine Bacteria Urine Mucus Urine Yeast Influ A Molecular Assay Influ B Molecular Assay SARS CoV-2 RNA Rapid OMID 03/21/23 03/21/23 03/22/23 09:30 21:30 04:55 WBC 15.74 H D RBC 3.91 L Hgb 11.6 L Hct 34.4 L MCV 88.0 MCH 29.7 MCHC 33.7 RDW Coeff of Adria 14.6 Plt Count 204 Immature Gran % (Auto) 0.4 Neut % (Auto) 89.0 H Lymph % (Auto) 4.6 L [place] % (Auto) 5.9 Eos % (Auto) 0.0 Baso % (Auto) 0.1 Neut # (Auto) 14.0 H Lymph # (Auto) 0.7 [place] # (Auto) 0.9 Eos # (Auto) 0.0 Baso # (Auto) 0.0 Immature Gran # (Auto) 0.1 PT INR APTT Sodium 133.3 L Potassium 3.14 L Chloride 95.0 L Carbon Dioxide 31.7 H Anion Gap 9.74 BUN 22.0 H Creatinine 0.73 Estimated GFR (MDRD) 102.00 BUN/Creatinine Ratio 30.13 Glucose 199.6 H Calcium 8.10 L Ferritin 367.00 Total Bilirubin 2.57 H AST 69.9 H D ALT 106.0 H Alkaline Phosphatase 90.6 Lactate Dehydrogenase 331 H Troponin I C-Reactive Prot, Quant 123 H NT-Pro-B Natriuret Pep Total Protein 7.45 Albumin 3.63 Globulin 3.82 Albumin/Globulin Ratio 0.95 Procalcitonin 0.48 H D-Dimer Urine Color Yellow Urine Clarity Clear Urine pH 6.0 Ur Specific [place] 1.020 Urine Protein 2+ H Urine Glucose (UA) Negative Urine Ketones Negative Urine Blood 2+ H Urine Nitrite Negative Urine Bilirubin Negative Urine Urobilinogen 1.0 H Ur Leukocyte Esterase Negative Urine Microscopic RBC 0-2 Urine Microscopic WBC Ur Squamous Epith Cells Not Reportable Triple Phos Crystals Urine Bacteria Urine Mucus Urine Yeast Influ A Molecular Assay Influ B Molecular Assay SARS CoV-2 RNA Rapid OMID Orders Category Date Time Status ADMIT PATIENT INPATIENT .TO [facility] (MONITORED BED) ADMISSION 03/22/23 07:[address] PATIENT OBSERVATION .TO [facility] (MONITORED BED ADMISSION 03/20/23 15:58 Completed ) ECHOCARDIOGRAM 2D-M MODE Routine CARDIO 03/21/23 10:00 Completed EKG-(ED ONLY) Stat CARDIO 03/20/23 11:40 Completed NEBULIZER TREATMENT Routine CARDIO 03/20/23 15:26 Completed NEBULIZER TREATMENT Stat CARDIO 03/20/23 13:12 Completed OXYGEN Routine CARDIO 03/21/23 07:00 Completed ACTIVITY .Early Mobilization for VTE Prevention CARE 03/20/23 15:23 Completed BLOOD GLUCOSE MONITORING (MED/SURG) 0630,1100,1700,2100 CARE 03/20/23 15:24 Completed GIVE HS SNACK 2100 CARE 03/20/23 15:24 Completed INTAKE & OUTPUT Q8HR CARE 03/20/23 15:23 Completed NPO REMINDER: IMAGING ONCE CARE 03/20/23 13:06 Completed NPO REMINDER: IMAGING ONCE CARE 03/20/23 14:54 Completed Notify RT of Treatment ONCE CARE 03/20/23 15:26 Completed REMINDER: Give Insulin if Needed 0630,1100,1700,2100 CARE 03/20/23 15:23 Completed TELEMETRY MONITORING TELE CARE 03/20/23 20:28 Completed VITAL SIGNS Q4HR CARE 03/20/23 15:23 Completed WEIGH PATIENT DAILY CARE 03/21/23 06:00 Completed ADA 1800 JAIRO. DIET DIETARY 03/20/23 Dinner Completed FLUID RESTRICTION 1800 ML DIETARY 03/21/23 Breakfast Completed HS SNACK DIETARY 03/20/23 Dinner Completed CONSULT SORORITY SUPERVISOR ONCE SORORITY SUPERVISOR 03/20/23 16:19 Completed OXYGEN [ED APPLY O2] .ONCE EMERGENCY 03/20/23 15:14 Completed BLOOD CULTURE Stat LAB 03/20/23 11:56 Completed CBC W/ AUTO DIFF DAILY@0600 LAB 03/21/23 05:00 Completed CBC W/ AUTO DIFF DAILY@0600 LAB 03/22/23 04:55 Completed CBC W/ AUTO DIFF Stat LAB 03/20/23 11:52 Completed CMP [COMPREHENSIVE METABOLIC PANEL] Stat LAB 03/20/23 11:52 Completed COMPREHENSIVE METABOLIC PANEL DAILY@0600 LAB 03/21/23 06:00 Completed COMPREHENSIVE METABOLIC PANEL DAILY@0600 LAB 03/22/23 04:55 Completed CRP [C-REACTIVE PROTEIN] Routine LAB 03/21/23 09:30 Completed D-DIMER Stat LAB 03/20/23 11:52 Completed FERRITIN Routine LAB 03/21/23 09:30 Completed FLU A/B MOLECULAR Stat LAB 03/20/23 11:35 Completed LDH [Lactic Acid Dehydrogenase] Routine LAB 03/21/23 09:30 Completed NT-PROBNP(ED) Stat LAB 03/20/23 11:52 Completed PROCALCITONIN Routine LAB 03/22/23 04:55 Completed PT WITH INR Stat LAB 03/20/23 11:52 Completed PTT [PARTIAL THROMBOPLASTIN TIME] Stat LAB 03/20/23 11:52 Completed SARS COV-2 RNA RAPID OMID Stat LAB 03/20/23 11:35 Completed TROPONIN I Stat LAB 03/20/23 11:52 Completed TROPONIN I Stat LAB 03/20/23 15:03 Completed URINALYSIS C & S IF INDICATED Routine LAB 03/21/23 21:30 Completed URINALYSIS C & S IF INDICATED Stat LAB 03/20/23 13:15 Completed URINE CULTURE Stat LAB 03/20/23 13:15 Completed 0.9 % Sodium Chloride [Saline Flush] Meds 03/21/23 21:00 Discontinued 1 syr IVF Q8HR Acetaminophen [Tylenol] Meds 03/20/23 15:23 Discontinued 650 mg PO Q4H PRN Albuterol Sulfate 0.083% Neb [Albuterol 0.083% Neb] Meds 03/20/23 15:26 Discontinued 2.5 mg NEB RTQ4H PRN Atenolol [Tenormin] Meds 03/21/23 09:00 Discontinued 50 mg PO DAILY Azithromycin Inj [Zithromax] 500 mg Meds 03/22/23 09:00 Discontinued 0.9 % Sodium Chloride [Sodium Chloride] 250 ml IV DAILY Ceftriaxone/D5w 1 gm Premix [Rocephin 1 gm/50 ml D5w] Meds 03/21/23 09:00 Discontinued 1 gm in 50 ml IV DAILY Ceftriaxone/D5w 1 gm Premix [Rocephin 1 gm/50 ml D5w] Meds 03/22/23 09:00 Discontinued 1 gm in 50 ml IV DAILY Ceftriaxone/D5w 1 gm Premix [Rocephin 1 gm/50 ml D5w] Meds 03/20/23 12:18 Discontinued 1 gm in 50 ml IV ONCE Dexamethasone Sod Phosphate [Decadron] Meds 03/21/23 09:00 Discontinued 6 mg IVP DAILY Dexamethasone Sod Phosphate [Decadron] Meds 03/20/23 12:24 Discontinued 6 mg IVP ONCE STA Empaglifozin [Jardiance] Meds 03/22/23 09:00 Discontinued 25 mg PO DAILY Furosemide [Lasix] Meds 03/20/23 14:47 Discontinued 20 mg IVP ONCE STA Furosemide [Lasix] Meds 03/20/23 23:00 Discontinued 40 mg IVP Q8HR Insulin Regular, Human [Humulin R] Meds 03/20/23 15:45 Discontinued See Protocol SUBCUT PRN PRN Ipratropium/Albuterol Neb [Duoneb] Meds 03/20/23 13:12 Discontinued 3 ml NEB ONCE STA Ipratropium/Albuterol Neb [Duoneb] Meds 03/20/23 18:00 Discontinued 3 ml NEB RTQ4H Losartan Potassium [Cozaar] Meds 03/20/23 21:00 Discontinued 50 mg PO BID [place]-3/Dha/Epa/Fish Oil [[place]-3 Fish Oil] Meds 03/20/23 21:00 Discontinued 1,000 mg PO BID Potassium Chloride [K-Dur] Meds 03/22/23 07:01 Discontinued 40 meq PO ONCE ONE Sacubitril/Valsartan [Entresto 24 mg-26 mg Tablet] Meds 03/21/23 21:00 Discontinued 1 each PO BID Sodium Chloride 0.9% [Sodium Chloride] 1,000 ml Meds 03/20/23 11:38 Discontinued IV 30 mls/hr Spironolactone [Aldactone] Meds 03/22/23 09:00 Discontinued 25 mg PO DAILY dabigatran etexilate [Pradaxa] Meds 03/20/23 21:00 Discontinued 150 mg PO BID RESUSCITATION STATUS Routine OTHERS 03/20/23 16:19 Completed CHEST, 1V AP ONLY Stat RADS 03/20/23 11:35 Completed CHEST, 1V AP ONLY Stat RADS 03/22/23 07:00 Completed CTA CHEST PE PROTOCOL Stat RADS 03/20/23 13:06 Completed ULTRASOUND ABDOMEN [U/S ABDOMEN COMPLETE] Stat RADS 03/20/23 14:54 Completed Medications Discontinued Medications Generic Name Dose Route Start Last Admin Trade Name Charlesq PRN Reason Stop Dose Admin Acetaminophen 650 mg 03/20/23 15:23 03/22/23 09:57 Acetaminophen 325 Mg Tablet PO 650 mg Q4H PRN Administration Mild Pain Albuterol Sulfate 2.5 mg 03/20/23 15:26 Albuterol Sulfate 0.083% Vial.Neb NEB RTQ4H PRN Wheezing Albuterol/Ipratropium 3 ml 03/20/23 13:12 03/20/23 13:20 Ipratropium/Albuterol Vial.Neb NEB 03/20/23 13:13 3 ml ONCE STA Administration Albuterol/Ipratropium 3 ml 03/20/23 18:00 03/25/23 14:34 Ipratropium/Albuterol Vial.Neb NEB 3 ml RTQ4H [place] Administration Atenolol 50 mg 03/21/23 09:00 03/25/23 08:45 Atenolol 50 Mg Tablet PO 50 mg DAILY [place] Administration Dexamethasone Sodium Phosphate 6 mg 03/20/23 12:24 03/20/23 12:32 Dexamethasone Sod Phos 10 Mg/Ml Inj IVP 03/20/23 12:25 6 mg ONCE STA Administration Dexamethasone Sodium Phosphate 6 mg 03/21/23 09:00 03/25/23 08:44 Dexamethasone Sod Phos 10 Mg/Ml Inj IVP 6 mg DAILY [place] Administration Empagliflozin 25 mg 03/22/23 09:00 03/25/23 08:44 Empagliflozin 10 Mg Tablet PO 25 mg DAILY [place] Administration Fish Oil 1,000 mg 03/20/23 21:00 03/25/23 08:45 [place]-3/Dha/Epa/Fish Oil 1,000 Mg Capsule PO 1,000 mg BID [place] Administration Furosemide 20 mg 03/20/23 14:47 03/20/23 15:16 Furosemide Inj 20 Mg/2 Ml Vial IVP 03/20/23 14:48 20 mg ONCE STA Administration Furosemide 40 mg 03/20/23 23:00 03/23/23 05:43 Furosemide Inj 40 Mg/4 Ml Vial IVP 40 mg Q8HR [place] Administration Furosemide 40 mg 03/23/23 09:00 03/23/23 20:28 Furosemide Inj 40 Mg/4 Ml Vial IVP 40 mg BID [place] Administration Furosemide 20 mg 03/24/23 07:00 03/25/23 05:42 Furosemide 20 Mg Tablet PO 20 mg QDAC2 [place] Administration Sodium Chloride 1,000 mls @ 30 mls/hr 03/20/23 11:38 03/20/23 13:34 Sodium Chloride IV 03/21/23 20:57 Not Given .[id number] STA CEFTRIAXONE/D5W 1 GM PREMIX 1 gm in 50 mls @ 100 mls/hr 03/20/23 12:18 03/20/23 12:33 Rocephin 1 Gm/50 Ml D5w IV 03/20/23 12:47 100 mls/hr ONCE ONE Administration CEFTRIAXONE/D5W 1 GM PREMIX 1 gm in 50 mls @ 75 mls/hr 03/21/23 09:00 03/21/23 09:20 Rocephin 1 Gm/50 Ml D5w IV 03/24/23 08:59 75 mls/hr DAILY [place] Administration Azithromycin 500 mg/ Sodium 250 mls @ 250 mls/hr 03/22/23 09:00 03/24/23 09:40 Chloride IV 03/25/23 08:59 250 mls/hr DAILY [place] Administration CEFTRIAXONE/D5W 1 GM PREMIX 1 gm in 50 mls @ 100 mls/hr 03/22/23 09:00 03/24/23 08:01 Rocephin 1 Gm/50 Ml D5w IV 03/25/23 08:59 100 mls/hr DAILY [place] Administration Sodium Chloride 500 mls @ 30 mls/hr 03/23/23 08:30 03/24/23 07:31 Sodium Chloride 3% IV Infused .[id number] [place] Infusion Potassium Chloride 40 meq in 200 mls @ 50 mls/hr 03/23/23 08:06 03/23/23 11:01 Potassium Chloride 20 Meq/100 Ml Premix IV 03/23/23 12:05 50 mls/hr ONCE ONE Administration Insulin Human Regular 0 unit 03/20/23 15:45 03/25/23 11:42 Insulin Regular, Human 100 Unit/Ml (3ml) Vial SUBCUT 4 unit PRN PRN Administration Hyperglycemia Protocol Lorazepam 0.5 mg 03/23/23 19:56 03/24/23 20:06 Lorazepam 0.5 Mg Tablet PO 0.5 mg BEDTIME PRN Administration Anxiety Losartan Potassium 50 mg 03/20/23 21:00 03/21/23 09:18 Losartan Potassium 100 Mg Tablet PO 50 mg BID [place] Administration Non-Formulary Medication 150 mg 03/20/23 21:00 03/21/23 21:17 Dabigatran Etexilate [Pradaxa] PO 150 mg BID [place] Administration Non-Formulary Medication 150 mg 03/22/23 09:00 03/25/23 08:43 Dabigatran Etexilate [Pradaxa] PO 150 mg BID [place] Administration Potassium Chloride 40 meq 03/22/23 07:01 03/22/23 08:18 Potassium Chloride 20 Meq Tab PO 03/22/23 07:02 40 meq ONCE ONE Administration Potassium Chloride 40 meq 03/23/23 08:06 03/23/23 09:02 Potassium Chloride 20 Meq Tab PO 03/23/23 08:07 40 meq ONCE ONE Administration Sacubitril/Valsartan 1 each 03/21/23 21:00 03/25/23 08:44 Sacubitril/Valsartan 1 Each Tablet PO 1 each BID [place] Administration Sodium Chloride 1 syr 03/21/23 21:00 03/25/23 13:44 0.9% Sodium Chloride 10 Ml Disp.Syrin IVF 1 syr Q8HR [place] Administration Spironolactone 25 mg 03/22/23 09:00 03/25/23 08:44 Spironolactone 25 Mg Tablet PO 25 mg DAILY [place] Administration Vital Signs: Temp Pulse Resp BP Pulse Ox O2 Del Method O2 Flow Rate 03/22/23 08:00 Nasal Cannula 2 03/22/23 08:00 Nasal Cannula 03/22/23 07:00 Nasal Cannula 03/22/23 06:00 98.1 F 70 22 H 118/67 91 L Nasal Cannula 2 03/22/23 06:00 Nasal Cannula 03/22/23 05:19 Nasal Cannula 2 03/22/23 05:00 Nasal Cannula 03/22/23 04:00 Nasal Cannula 03/22/23 04:00 Nasal Cannula 03/22/23 03:00 Nasal Cannula 03/22/23 02:00 98.8 F 70 21 H 110/64 94 L Nasal Cannula 2 03/22/23 02:00 Nasal Cannula 03/22/23 01:00 Nasal Cannula 03/22/23 00:00 Nasal Cannula 03/21/23 23:00 Nasal Cannula 03/21/23 22:00 Nasal Cannula 03/21/23 22:00 99.0 F 77 138/64 92 L Nasal Cannula 2 03/21/23 21:00 Nasal Cannula 03/21/23 20:00 94 L Nasal Cannula 2 03/21/23 20:00 21 H Nasal Cannula 2 03/21/23 20:00 Room Air 03/21/23 19:00 Room Air 03/21/23 17:48 Room Air 03/21/23 17:00 Room Air 03/21/23 16:00 Room Air 03/21/23 15:00 Room Air 03/21/23 14:00 70 24 H 132/68 96 Room Air 03/21/23 13:54 Nasal Cannula 03/21/23 13:32 95 Nasal Cannula 1.5 03/21/23 13:00 Nasal Cannula 03/21/23 11:56 Nasal Cannula 03/21/23 10:55 Nasal Cannula 03/21/23 09:58 Nasal Cannula 03/21/23 09:57 94 L Nasal Cannula 1.5 03/21/23 09:00 Nasal Cannula 03/21/23 08:00 Nasal Cannula 2 03/21/23 07:56 Nasal Cannula 03/21/23 07:00 Nasal Cannula 03/21/23 05:37 Nasal Cannula 03/21/23 05:33 97.9 F 73 25 H 131/70 92 L Nasal Cannula 2 03/21/23 05:00 Nasal Cannula 03/21/23 04:00 Nasal Cannula 03/21/23 03:00 Nasal Cannula 03/21/23 02:00 Nasal Cannula 03/21/23 01:00 Nasal Cannula 03/21/23 00:00 Nasal Cannula 03/20/23 23:00 Nasal Cannula 03/20/23 21:03 98 F 70 22 H 136/72 93 L Nasal Cannula 2 03/20/23 21:03 Nasal Cannula 03/20/23 21:00 Nasal Cannula 03/20/23 20:00 22 H Nasal Cannula 2 03/20/23 20:00 Nasal Cannula 03/20/23 19:00 Room Air 03/20/23 18:00 Room Air 03/20/23 17:00 Room Air 03/20/23 16:00 Room Air 03/20/23 15:46 17 Room Air 03/20/23 15:46 99.0 F 70 17 92 L Room Air 03/20/23 15:24 2 03/20/23 11:27 98.2 F 70 18 132/77 92 L Discharge Plan Discharge Patient Disposition: PLACED OBSERVATION Discharge Problem: COVID-19 Pulmonary edema Qualifiers: Chronicity: acute Qualified Code(s): J81.0 - Acute pulmonary edema Did you review [place] TUMBLING INSTRUCTOR for ALL controlled substances?: Not Applicable ED Provider: SHARLA LARIOS Condition: Stable Physician Progress Note: History obtained from the patient with a history of COVID in the past x 2, hypertension, congestive heart failure, 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 Patient complains of having shortness of breath for the past 2 days recently diagnosed with COVID on a home test obtained 4 days ago denies chest pain, diaphoresis, palpitations but complains of generalized weakness and dyspnea at rest. Patient's pulse oximetry varied from 94-96 upon deep inspiration. Portable chest x-ray interpreted by the radiologist is consistent with no vascular congestion, left greater than right bronchial thickening and retinacular opacity is present similar to prior, greater in the bases there is no new opacity, no pleural effusion no pneumothorax Patient given IV fluids normal saline 1 L at 30 mill/hour, followed by Decadron 6 mg IV, and a DuoNeb aerosol treatment. After 2 sets of blood cultures 1 g of Rocephin IV piggyback over 30 minutes. Laboratory data total bilirubin is 2.56 previous total bilirubin's 06/05/2022 total bili 2.69, 10/01/2020 total bili 1.68, 02/05/2015 total bili 1.23 Troponin 0.073, D-dimer 682, BNP 4100, CBC the BMP are normal with a GFR 106. White blood cell count of 5000. CT of the chest with intravenous contrast is consistent with no evidence of pulmonary arterial thrombolic emboli disease there is mild bilateral dependent atelectasis, small layering pleural effusions are noted. No pneumothorax. There is cardiomegaly noted no pericardial effusion. Patient given Lasix 20 mg IV Patient states he has taken discontinue his Lasix at home and will milligrams twice daily Discussed with Dr. Frederic Delarosa at 1448 with recommendations for his admission to the hospitalist Discussed with ADARSH Barker at 1455 for observation, with recommendation to repeat the troponin as well as a obtaining abdominal ultrasound in the emergency room Patient to maintain a pulse oximetry room air from 92 to 96%. Differential diagnosis: 1) acute COVID bronchitis 2)acute dyspnea 2) chronic hyperbilirubinemia []
[2023-03-20] MEDS ORDERED: SODIUM CHLORIDE 1,000 ML IV STA (11:38)
[2023-03-20 12:00] LABS: BASOPHILS % (AUTO) 0.2 % (0.0-3.0); HEMATOCRIT 32.3 % (42.0-52.0); HEMOGLOBIN 10.4 g/dl (14.0-18.0); IMMATURE GRANULOCYTE % (AUTO) 0.4 % (0.0-5.0); LYMPHOCYTES # (AUTO) 0.5 K/uL (0.60-3.4); LYMPHOCYTES % (AUTO) 8.9 (10.0-50.0); MEAN CORPUSCULAR HEMOGLOBIN 29.5 pg (27.0-31.0); MEAN CORPUSCULAR HGB CONC 32.2 (31.8-35.4); MEAN CORPUSCULAR VOLUME 91.8 fl (80.0-94.0); MONOCYTES # (AUTO) 0.5 K/uL (0.4-2.0); MONOCYTES % (AUTO) 9.7 (0-10); NEUTROPHILS # (AUTO) 4.1 K/ul (2.0-6.9); NEUTROPHILS % (AUTO) 80.8 % (42.2-75.2); PLATELET COUNT 143 10^3/uL (140-440); RDW COEFFICIENT OF VARIATION 15.2 % (11.6-14.8); RED BLOOD COUNT 3.52 10^6/ul (4.70-6.10); WHITE BLOOD COUNT 5.05 K/ul (4.2-10.2)
[2023-03-20 12:06] LABS: SARS COV-2 RNA RAPID NAAT POSITIVE (NEGATIVE)
[2023-03-20 12:07] LABS: MOLECULAR FLU A NEGATIVE BY NAAT (NEGATIVE); MOLECULAR FLU B NEGATIVE BY NAAT (NEGATIVE)
[2023-03-20 12:16] LABS: ALBUMIN 3.64 g/dL (3.5-5.0); ALKALINE PHOSPHATASE 90.1 U/L (56-119); ASPARTATE AMINO TRANSFERASE 124.5 U/L (17-59); BILIRUBIN,TOTAL 2.56 mg/dL (0.2-1.3); BLOOD UREA NITROGEN 16.6 mg/dL (9-20); CALCIUM 8.24 mg/dL (8.4-10.2); CARBON DIOXIDE 23.6 mmol/L (22-30.0); CHLORIDE 103.5 mmol/L (98-107); CREATININE 0.71 mg/dL (0.60-1.10); GLUCOSE 144.2 mg/dL (74-106); POTASSIUM 3.53 mmol/L (3.5-5.1); TOTAL PROTEIN 7.37 g/dL (6.3-8.2)
--- NOTE | 2023-03-20 12:17 | DI ---
EXAM: CHEST ONE VIEW, FRONTAL VIEW ONLY. HISTORY: Cough, dyspnea. COMPARISON: 06/11/2022. FINDINGS: Left-sided pacemaker noted. Heart size normal. Atherosclerotic calcifications present. There is no vascular congestion. Calcified granulomatous changes noted. Left greater than right bro nchial thickening and reticulonodular opacities present, similar to prior, greater in the bases. No new opacity. No large pleural effusion or pneumothorax detected. No acute osseous abnormality is se en. IMPRESSION: Stable chronic airways inflammation, greatest at the left base.
[2023-03-20] MEDS ORDERED: ROCEPHIN 1 GM/50 ML D5W 1 GM/50 ML BAG IV ONE (12:18)
[2023-03-20 12:23] LABS: PARTIAL THROMBOPLASTIN TIME 53.9 SEC (23.9-40.0); PROTHROMBIN TIME 14.5 SEC (9.3-11.0)
[2023-03-20] MEDS ORDERED: DECADRON IVP STA (12:24)
[2023-03-20 12:28] LABS: TROPONIN I 0.073 ng/ml (0.0000-0.120)
[2023-03-20] MEDS ORDERED: DUONEB NEB STA (13:12)
[2023-03-20 13:23] LABS: BILIRUBIN,URINE 1+ (NEGATIVE); CLARITY,URINE Clear (CLEAR); COLOR,URINE Dark (YELLOW); GLUCOSE, URINE (UA) Negative (NEGATIVE); KETONES,URINE Trace (NEGATIVE); LEUKOCYTE ESTERASE ,URINE Negative (NEGATIVE); NITRITE,URINE Positive (NEGATIVE); PROTEIN,URINE 3+ (NEGATIVE); URINE, BLOOD 2+ (NEGATIVE); UROBILINOGEN,URINE >=8.0 (0.2)
[2023-03-20 13:44] LABS: SQUAMOUS EPITHELIAL CELL,UR NOT PRESENT (0-5); URINE WBC, MICROSCOPIC 0-2 (0-2)
[2023-03-20 13:45] LABS: BACTERIA,URINE 1+ (NOT PRESENT); MUCUS,URINE 1+ (NOT PRESENT); TRIPLE PHOSPHATE CRYSTAL,UR TRACE (NOT PRESENT); YEAST,URINE 1+ (NOT PRESENT)
--- NOTE | 2023-03-20 14:13 | CT ---
EXAM: CHEST CTA WITH CONTRAST (PULMONARY ARTERY) HISTORY: Acute dyspnea. COVID-19. Elevated D-dimer. TECHNIQUE: CTA acquisition of the chest from the thoracic inlet to the upper abdomen following IV con trast administration timed to filling of the pulmonary artery. IV Contrast: 100 mL of Omnipaque 350. 3D/MIP/VR images were utilized. CT Dose Reduction Techniques Employed: Yes. COMPARISON: 06/06/2022 FINDINGS: Pulmonary Embolism: - Diagnostic quality: Adequate. - Pulmonary Arteries: No evidence of thromboembolic disease. - Right ventricle/Left ventricle ratio: Normal. Lung Parenchyma and Airways: No suspicious mass or consolidation. Scattered bilateral ground-glass op acification is identified. Mild bilateral dependent atelectasis is noted. Pleural Space: Small layering pleural effusions are noted. No pneumothorax. Mediastinum: Cardiomegaly is noted. No pericardial effusion. The great vessels are normal. No signif icant aortic aneurysm. No enlarged lymph nodes. Bones and Soft Tissues: There is no fracture or lytic lesion. Chest wall soft tissues are unremarkab le. Upper Abdomen: The scattered bilateral intrarenal calcifications are identified. IMPRESSION: 1. No evidence of pulmonary artery thromboembolic disease. 2. Cardiogenic pulmonary edema is noted. All CT scans are performed using dose optimization techniques as appropriate to the performed exam an d include at least one of the following: Automated exposure control, adjustment of the mA and/or kV according t o size, and the use of iterative reconstruction technique.
[2023-03-20] MEDS ORDERED: LASIX IVP STA (14:47)
[2023-03-20] MEDS ORDERED: ALBUTEROL 0.083% NEB NEB PRN (15:26)
--- NOTE | 2023-03-20 15:27 | PCM ---
Date of Service Date Seen by Provider: 03/20/23 Time Seen by Provider: 15:15 Admit Day/Time Admission Date: 03/20/23 Admission Time: 14:50 Reason for Admission Chief Complaint: COVID+; PULMONARY [facility] Provider: WALT ZIMMERMAN, [facility] Primary Care Physician Primary Care Physician: DEBRA DYER MD History of Present Illness History of Present Illness: 83 yo male presented to the ER with complaints of shortness of breath. Patient reports that he began having covid symptoms of SOB, cough, fever, and weakness 4 days ago. Took a home test that was positive. Has not reached out to his PCP for any outpatient treatment. Has pmh of diastolic HFpEF that he takes lasix prn for. Has not taken the lasix in several days due to "not needing it". Patient was found to have BNP >4000, UTI, elevated liver enzymes and bilirubin. Patient reports he has had elevated liver enzymes in the past but is unsure why. Does not take any cholesterol medications due to joint pain previously. Denies any alcohol use. He was given a dose of lasix, steroids, and rocephin in the ER. US of abdomen was ordered as well. Case Discussed With Case Discussed With: Patient's case was discussed with the ER Physicians, Dr. [facility] Medical History (Updated 03/20/23 @ 15:39 by WALT ZIMMERMAN) DM type 2 (diabetes mellitus, type 2) A1C 7.6 07/27/22 A1C 6.16 11/26/22 E11.9 - Type 2 diabetes mellitus without complications (ICD-10) Chronic lung disease J98.4 - Other disorders of lung (ICD-10) Diastolic CHF I50.30 - Unspecified diastolic (congestive) heart failure (ICD-10) Atrial fibrillation Pradaxa I48.91 - UNSPECIFIED ATRIAL FIBRILLATION (ICD-10) Dyslipidemia Fishoil E78.4 - OTHER HYPERLIPIDEMIA (ICD-10) COVID-19 virus antibody detected 09/2020 R76.8 - Other specified abnormal immunological findings in serum (ICD-10) Herpes zoster left thoracic B02.9 - Zoster without complications (ICD-10) Foot pain, bilateral L>R M79.671 - Pain in right foot (ICD-10) M79.672 - Pain in left foot (ICD-10) Melanoma left arm C43.9 - Malignant melanoma of skin, unspecified (ICD-10) History of COVID-19 Z86.16 - Personal history of COVID-19 (ICD-10) Recurrent UTI N39.0 - Urinary tract infection, site not specified (ICD-10) Surgical History S/P TURP Z90.79 - Acquired absence of other genital organ(s) (ICD-10) Family History FATHER Diabetes BROTHER Cancer Other No pertinent family history Social History Smoking and tobacco status: Never smoker Alcohol intake: never Substance use type: does not use Special fran needs: No Agree to transfusion: Yes Adopted: No Caregiver/support person: No Foster care: No Household members: spouse Housing: house Marital status: M Daycare: no daycare Number of children: 3 service: Yes status: retired branch: [employer]: No History of recent travel: No Do you think of yourself as: straight/heterosexual Current gender identity: male Seatbelt use: always Helmet use: No Drives intoxicated or rides with intoxicated party bus driver: No Water heater temperature set < 120 degrees: Yes Working smoke detector in home: Yes Fire extinguisher in home: Yes Carbon monoxide detector in home: Yes Allergies Allergies Allergy/AdvReac Type Severity Reaction Status Date / Time No Known Allergies Allergy Verified 03/20/23 11:32 Current Medications Home Medications omega-3 fatty acids-fish oil 300 mg-1,000 mg capsule (Fish Oil) 1,000 ea PO BID 03/06/16 [History Confirmed 03/20/23 Last Taken 05/27/18 2000 MG] atenolol 50 mg tablet 50 mg PO DAILY 10/01/16 [History Confirmed 03/20/23 Last Taken 06/03/18] albuterol sulfate 90 mcg/actuation aerosol inhaler 2 puff inhalation TID #1 ea 06/12/22 [Rx Confirmed 03/20/23 Last Taken Unknown] amlodipine 5 mg tablet 5 mg PO DAILY #30 tabs 06/12/22 [Rx Confirmed 03/20/23 Last Taken Unknown] losartan 100 mg tablet (Cozaar) 50 mg (1/2 x 100 mg) PO BID #60 tabs 06/12/22 [Rx Confirmed 03/20/23 Last Taken Unknown] clotrimazole-betamethasone 1 %-0.05 % topical cream 1 applic topical BID PRN fungal infection #45 grams 06/21/22 [Rx Confirmed 03/20/23 Last Taken Unknown] metformin 500 mg tablet 500 mg PO BIDWMEAL #60 tabs 09/03/22 [Rx Confirmed 03/20/23 Last Taken Unknown] prednisone 1 mg tablet 1 mg PO QDAY 09/03/22 [History Confirmed 03/20/23 Last Taken Unknown] furosemide 20 mg tablet 20 mg PO QAM #30 tabs 09/04/22 [Rx Confirmed 03/20/23 Last Taken Unknown] potassium chloride 10 mEq tablet,extended release (K-Tab) 10 meq PO QDAY #30 tabs 09/04/22 [Rx Confirmed 03/20/23 Last Taken Unknown] dabigatran etexilate 150 mg capsule (Pradaxa) 150 mg PO BID #60 caps 03/08/23 [Rx Confirmed 03/20/23 Last Taken Unknown] Home Acetaminophen (Acetaminophen 325 Mg Tablet) 650 mg PO Q4H PRN PRN Reason: Mild Pain Albuterol Sulfate (Albuterol Sulfate 0.083% Vial.Neb) 2.5 mg NEB RTQ4H PRN PRN Reason: Wheezing Albuterol/Ipratropium (Ipratropium/Albuterol Vial.Neb) 3 ml NEB RTQ4H ZAIDA Dexamethasone Sodium Phosphate (Dexamethasone Sod Phos 10 Mg/Ml Inj) 6 mg IVP DAILY ZAIDA Furosemide (Furosemide Inj 40 Mg/4 Ml Vial) 40 mg IVP Q8HR ZAIDA CEFTRIAXONE/D5W 1 GM PREMIX (Rocephin 1 Gm/50 Ml D5w) 1 gm in 50 mls @ 75 mls/hr IV DAILY ZAIDA Stop: 03/24/23 08:59 Discontinued Medications Albuterol/Ipratropium (Ipratropium/Albuterol Vial.Neb) 3 ml NEB ONCE STA Stop: 03/20/23 13:13 Last Admin: 03/20/23 13:20 Dose: 3 ml Dexamethasone Sodium Phosphate (Dexamethasone Sod Phos 10 Mg/Ml Inj) 6 mg IVP ONCE STA Stop: 03/20/23 12:25 Last Admin: 03/20/23 12:32 Dose: 6 mg Furosemide (Furosemide Inj 20 Mg/2 Ml Vial) 20 mg IVP ONCE STA Stop: 03/20/23 14:48 Last Admin: 03/20/23 15:16 Dose: 20 mg Sodium Chloride (Sodium Chloride) 1,000 mls @ 30 mls/hr IV .[id number] STA Stop: 03/21/23 20:57 Last Admin: 03/20/23 13:34 Dose: Not Given CEFTRIAXONE/D5W 1 GM PREMIX (Rocephin 1 Gm/50 Ml D5w) 1 gm in 50 mls @ 100 mls/hr IV ONCE ONE Stop: 03/20/23 12:47 Last Admin: 03/20/23 12:33 Dose: 100 mls/hr Review of Systems Constitutional: Reports Fever, Fatigue, Weakness and Loss of appetite Head: Reports Normocephalic and Atraumatic Eyes: Reports No symptoms Ears: Reports No symptoms Nose: Reports No symptoms Mouth: Reports No symptoms Throat: Reports No symptoms Cardiovascular: Reports No symptoms Respiratory: Reports Cough (productive, clear sputum) Gastrointestinal: Reports No symptoms Genitourinary: Reports No Symptoms Musculoskeletal: Reports No symptoms Endocrine: Reports No symptoms Hematology: Reports No symptoms Immunology: Reports No symptoms Neurological: Reports No symptoms Psychiatric: Reports No symptoms Physical examination Most Recent Vital Signs: Most Recent Vital Signs Temperature 98.2 F 03/20/23 11:27 Temperature Source Oral 03/20/23 11:27 Pulse Rate 70 03/20/23 11:27 Respiratory Rate 18 03/20/23 11:27 Blood Pressure 132/77 03/20/23 11:27 O2 Sat by Pulse Oximetry 92 L 03/20/23 11:27 Oxygen Flow Rate 2 03/20/23 15:24 Height 5 ft 8 in 03/20/23 11:27 Weight 155 lb 03/20/23 11:27 Telemetry Heart Rate 70 06/12/22 07:00 Telemetry SPO2 96 06/07/22 00:55 Appearance: Positive No Apparent Distress, Alert and Oriented x3 and Ill- Appearing Skin: Positive Warm HEENT: Positive Normocephalic and PERRLA Neck: Positive Supple and Midline Trachea Chest/Lungs: Positive Symmetrical With Equal Breath Sounds and Clear to Auscultation Bilaterally (diminished) Heart: Positive RRR and Pulses Normal GI/: Positive Soft, Nontender and Bowel Sounds Normal Musculoskeletal: Positive Not Examined Extremities: Positive Edema (trace pitting bilaterally), Intact Peripheral Pulses and Stable Joints Without Laxity Neurological: Positive Sensation Intact, Motor intact, Reflexes Intact, Alert, Oriented and Muscle Strength 5/5 in Upper and Lower Extremities Bilaterally Psychiatric: Positive Oriented x4 Labs This Visit Labs This Visit: Labs This Visit 03/20/23 03/20/23 03/20/23 11:35 11:52 13:15 WBC 5.05 RBC 3.52 L Hgb 10.4 L Hct 32.3 L MCV 91.8 MCH 29.5 MCHC 32.2 RDW Coeff of Adria 15.2 H Plt Count 143 Immature Gran % (Auto) 0.4 Neut % (Auto) 80.8 H Lymph % (Auto) 8.9 L [place] % (Auto) 9.7 Eos % (Auto) 0.0 Baso % (Auto) 0.2 Neut # (Auto) 4.1 Lymph # (Auto) 0.5 L [place] # (Auto) 0.5 Eos # (Auto) 0.0 Baso # (Auto) 0.0 Immature Gran # (Auto) 0.0 PT 14.5 H INR 1.41 APTT 53.9 H Sodium 135.0 Potassium 3.53 Chloride 103.5 Carbon Dioxide 23.6 Anion Gap 11.43 BUN 16.6 Creatinine 0.71 Estimated GFR (MDRD) 106.00 BUN/Creatinine Ratio 23.38 Glucose 144.2 H Calcium 8.24 L Total Bilirubin 2.56 H AST 124.5 H ALT 159.0 H Alkaline Phosphatase 90.1 Troponin I 0.073 NT-Pro-B Natriuret Pep 4100 H Total Protein 7.37 Albumin 3.64 Globulin 3.73 Albumin/Globulin Ratio 0.97 D-Dimer 682.28 H Urine Color Dark Urine Clarity Clear Urine pH 6.0 Ur Specific [place] 1.025 Urine Protein 3+ H Urine Glucose (UA) Negative Urine Ketones Trace H Urine Blood 2+ H Urine Nitrite Positive H Urine Bilirubin 1+ H Urine Urobilinogen >=8.0 Ur Leukocyte Esterase Negative Urine Microscopic RBC 5-10 Urine Microscopic WBC 0-2 Ur Squamous Epith Cells Not present Triple Phos Crystals Trace Urine Bacteria 1+ Urine Mucus 1+ Urine Yeast 1+ Influ A Molecular Assay Negative by naat Influ B Molecular Assay Negative by naat SARS CoV-2 RNA Rapid OMID Positive H Imaging Imaging: EXAM: CHEST CTA WITH CONTRAST (PULMONARY ARTERY) FINDINGS: Pulmonary Embolism: - Diagnostic quality: Adequate. - Pulmonary Arteries: No evidence of thromboembolic disease. - Right ventricle/Left ventricle ratio: Normal. Lung Parenchyma and Airways: No suspicious mass or consolidation. Scattered bilateral ground-glass opacification is identified. Mild bilateral dependent atelectasis is noted. Pleural Space: Small layering pleural effusions are noted. No pneumothorax. Mediastinum: Cardiomegaly is noted. No pericardial effusion. The great vessels are normal. No significant aortic aneurysm. No enlarged lymph nodes. Bones and Soft Tissues: There is no fracture or lytic lesion. Chest wall soft tissues are unremarkable. Upper Abdomen: The scattered bilateral intrarenal calcifications are identified. IMPRESSION: 1. No evidence of pulmonary artery thromboembolic disease. 2. Cardiogenic pulmonary edema is noted. EXAM: CHEST ONE VIEW, FRONTAL VIEW ONLY. FINDINGS: Left-sided pacemaker noted. Heart size normal. Atherosclerotic calcifications present. There is no vascular congestion. Calcified granulomatous changes noted. Left greater than right bronchial thickening and reticulonodular opacities present, similar to prior, greater in the bases. No new opacity. No large pleural effusion or pneumothorax detected. No acute osseous abnormality is seen. IMPRESSION: Stable chronic airways inflammation, greatest at the left base. Review Statement Review Statement: I have independently reviewed and interpreted the labs/EKGs/imaging that were ordered by the ER provider. I have reviewed all outside records that are available currently in our EMR including imaging/notes/labs from previous visits. Plan Plan: 1. Covid-19 - out of window for viral therapy, steroids, nebs, oxygen if needed 2. Acute Diastolic HFpEF exacerbation - last EF in 06/21 was 60%, repeat echo, lasix 40 Q8H IVP, I&O, weigh daily, 1800 fluid restriction 3. Acute Transaminitis - likely due to #1, checking ultrasound, repeat labs in am 4. UTI - urine culture pending, rocephin 1G IVPB daily 5. A Fib - chronic, not in RVR, continue home medications 6. Hypertension - chronic, continue home medications 7. DM, Type 2 - ADA diet, hold oral agents, accuchecks ACHS with SSI DVT Prophylaxis: Lovenox Time Spent: Greater than 80 minutes spent with patient, 50% of the time spent with this patient was devoted to counseling and coordination of care. [facility] minutes spent discussing advance care planning. Disposition: Admit to: Med/Surg Observation Discussed Plan of Care with Dr. Nestor Deyr. Medications Medication Orders: Medications Ordered Category Date Time Status 1 gm/50 ml IV Daily Zaida Meds 03/21/23 09:00 Ordered Ceftriaxone/D5w 1 gm Premix [Rocephin 1 gm/50 ml D5w] 1 gm in 50 ml IV DAILY Acetaminophen [Tylenol] Meds 03/20/23 15:23 Ordered 650 mg PO Q4H PRN Albuterol Sulfate 0.083% Neb [Albuterol 0.083% Neb] Meds 03/20/23 15:26 Ordered 2.5 mg NEB RTQ4H PRN Dexamethasone Sod Phosphate [Decadron] Meds 03/21/23 09:00 Ordered 6 mg IVP DAILY Furosemide [Lasix] Meds 03/20/23 23:00 Ordered 40 mg IVP Q8H Ipratropium/Albuterol Neb [Duoneb] Meds 03/20/23 18:00 Ordered 3 ml NEB RTQ4H
--- NOTE | 2023-03-20 16:19 | US ---
EXAM: ULTRASOUND ABDOMINAL COMPLETE HISTORY: Elevated liver enzymes. Previous cholecystectomy. TECHNIQUE: Sonography of the abdomen was performed. Images were obtained and stored in a permanent a rchive. Color Doppler images of the main portal vein were obtained. COMPARISON: CT of the abdomen and pelvis 10/03/2020. FINDINGS: Pancreas: Normal sonographic appearance of the head and body. Tail is partially obscured. Pancreatic duct at the upper limits of normal. Liver: Normal echogenicity. No lesions. - Normal antegrade flow within the main portal vein. Biliary: No intrahepatic duct dilation. Common bile duct measures 9.7 mm. Previous cholecystectomy. Spleen: Obscured by overlying structures. Right Kidney: No hydronephrosis. Simple cyst measuring 4.0 cm. Additional smaller cyst measuring 1. 3 cm with thickened septation. Likely present measuring [address] No calculus. Left Kidney: No hydronephrosis. Simple cyst measuring 8.2 cm. Additional simple cyst measuring 9 mm. No calculus. Bladder: Partially distended. Mild generalized wall thickening. IVC: No abnormality on mock scale image. Patent on color Doppler. Aorta: No aneurysmal dilatation in the visualized mid portion. Patent on color Doppler. Other: No ascites. Small right pleural effusion partially visualized. IMPRESSION: Previous cholecystectomy. The common bile duct is partially visualized and at the upper limits of normal in size post cholecyst ectomy measuring 9.7 cm. Distal pancreas obscured with the pancreatic duct borderline in diameter at the level of the distal p ancreas. Consider cross-sectional imaging with contrast for further evaluation of the above findings. Portions of the aorta as well as the spleen are obscured by overlying structures and bowel gas. No significant hepatic abnormality. Simple appearing bilateral renal cysts measuring up to 8.2 cm on the left and 4.0 cm on the right. An additional small mildly complex cyst is present in the right kidney measuring 1.30 cm with minimal ly thickened septation. Small right pleural effusion. Partially distended bladder with mild generalized wall thickening. This could be due to partial dist ension, chronic outlet obstruction, or cystitis.
[2023-03-20] MEDS: DUONEB NEB SCH ×2 (17:03→22:15)
[2023-03-20] MEDS: OMEGA-3 FISH OIL PO SCH (20:13)
[2023-03-20] MEDS: COZAAR PO SCH (20:13)
[2023-03-20] MEDS: HUMULIN R SUBCUT PRN (20:15)
[2023-03-20] MEDS ORDERED: NON-FORMULARY MEDICATION (Omega-3 Fatty Acids-Fish Oil [Fish Oil] 1 EACH capsule) PO SCH (21:00)
[2023-03-20] MEDS: LASIX IVP SCH (22:24)
[2023-03-21] MEDS: DUONEB NEB SCH ×6 (02:15→21:43)
[2023-03-21] MEDS: LASIX IVP SCH ×3 (05:21→20:12)
[2023-03-21 05:50] LABS: BASOPHILS % (AUTO) 0.1 % (0.0-3.0); HEMATOCRIT 32.2 % (42.0-52.0); HEMOGLOBIN 10.6 g/dl (14.0-18.0); IMMATURE GRANULOCYTE % (AUTO) 0.5 % (0.0-5.0); LYMPHOCYTES # (AUTO) 0.5 K/uL (0.60-3.4); LYMPHOCYTES % (AUTO) 6.3 (10.0-50.0); MEAN CORPUSCULAR HEMOGLOBIN 29.9 pg (27.0-31.0); MEAN CORPUSCULAR HGB CONC 32.9 (31.8-35.4); MEAN CORPUSCULAR VOLUME 90.7 fl (80.0-94.0); MONOCYTES # (AUTO) 0.7 K/uL (0.4-2.0); MONOCYTES % (AUTO) 8.8 (0-10); NEUTROPHILS # (AUTO) 6.3 K/ul (2.0-6.9); NEUTROPHILS % (AUTO) 84.3 % (42.2-75.2); PLATELET COUNT 161 10^3/uL (140-440); RDW COEFFICIENT OF VARIATION 14.7 % (11.6-14.8); RED BLOOD COUNT 3.55 10^6/ul (4.70-6.10); WHITE BLOOD COUNT 7.42 K/ul (4.2-10.2)
[2023-03-21 06:01] LABS: ALANINE AMINOTRANSFERASE 129.3 U/L (0-50); ALBUMIN 3.64 g/dL (3.5-5.0); ALKALINE PHOSPHATASE 103.1 U/L (56-119); ASPARTATE AMINO TRANSFERASE 95.2 U/L (17-59); BILIRUBIN,TOTAL 2.34 mg/dL (0.2-1.3); BLOOD UREA NITROGEN 18.9 mg/dL (9-20); CALCIUM 8.33 mg/dL (8.4-10.2); CARBON DIOXIDE 25.6 mmol/L (22-30.0); CHLORIDE 99.7 mmol/L (98-107); CREATININE 0.7 mg/dL (0.60-1.10); GLUCOSE 202.1 mg/dL (74-106); POTASSIUM 3.73 mmol/L (3.5-5.1); SODIUM 133.6 mmol/L (134.5-145); TOTAL PROTEIN 7.41 g/dL (6.3-8.2)
[2023-03-21] MEDS: HUMULIN R SUBCUT PRN ×3 (06:13→18:43)
[2023-03-21] MEDS ORDERED: ROCEPHIN 1 GM/50 ML D5W 1 GM/50 ML BAG IV SCH (09:00)
--- NOTE | 2023-03-21 09:14 | PCM.PROG ---
Date/Time Seen Date Seen by Provider: 03/21/23 Time Seen by Provider: 08:30 Provider Provider: WALT ZIMMERMAN, [facility] Chief Complaint Chief Complaint: COVID+; PULMONARY ADEMA Subjective Subjective: Began requiring oxygen on admission. O2 sat dropped down into upper 80s. No fever overnight. Patient reports feeling some better. Objective Appearance: Positive No Apparent Distress, Alert and Oriented x3 and Ill- Appearing Chest/Lungs: Positive Symmetrical With Equal Breath Sounds, Clear to Auscultation Bilaterally and Good Air Movement all 4 Lung Chambers Heart: Positive RRR and Pulses Normal GI/: Positive Soft, Nontender and Bowel Sounds Normal Musculoskeletal: Positive Not Examined Neurological: Positive Sensation Intact, Motor intact, Reflexes Intact, Alert, Oriented and Other (generalized weakness) Additional Findings: pitting edema resolved Vital Signs Vital Signs: Vital Signs: Last 24 Hours 03/20/23 11:27 03/20/23 15:24 03/20/23 15:46 Temperature 98.2 F 99.0 F Temperature Source Oral Oral Pulse Rate 70 70 Respiratory Rate 18 17 Blood Pressure 132/77 Blood Pressure Mean Blood Pressure Left Arm 156/79 Blood Pressure Location Blood Pressure Position Supine O2 Sat by Pulse Oximetry 92 L 92 L Oxygen Delivery Method Room Air Oxygen Flow Rate 2 Height 5 ft 8 in 5 ft 8 in Weight 155 lb 155 lb Telemetry Type Telemetry Monitoring Telemetry Heart Rate Telemetry SPO2 EKG QRS Interval Telemetry Strip [place] 03/20/23 15:46 03/20/23 16:00 03/20/23 17:00 Temperature Temperature Source Pulse Rate Respiratory Rate 17 Blood Pressure Blood Pressure Mean Blood Pressure Left Arm Blood Pressure Location Blood Pressure Position O2 Sat by Pulse Oximetry Oxygen Delivery Method Room Air Room Air Room Air Oxygen Flow Rate Height Weight Telemetry Type Telemetry Monitoring Telemetry Heart Rate Telemetry SPO2 EKG QRS Interval Telemetry Strip [place] 03/20/23 18:00 03/20/23 19:00 03/20/23 20:00 Temperature Temperature Source Pulse Rate Respiratory Rate Blood Pressure Blood Pressure Mean Blood Pressure Left Arm Blood Pressure Location Blood Pressure Position O2 Sat by Pulse Oximetry Oxygen Delivery Method Room Air Room Air Nasal Cannula Oxygen Flow Rate Height Weight Telemetry Type Telemetry Monitoring Telemetry Heart Rate Telemetry SPO2 EKG QRS Interval Telemetry Strip [place] 03/20/23 20:00 03/20/23 21:00 03/20/23 21:02 Temperature Temperature Source Pulse Rate Respiratory Rate 22 H Blood Pressure Blood Pressure Mean Blood Pressure Left Arm Blood Pressure Location Blood Pressure Position O2 Sat by Pulse Oximetry Oxygen Delivery Method Nasal Cannula Nasal Cannula Oxygen Flow Rate 2 Height Weight Telemetry Type Bedside Monitor Telemetry Monitoring Started Telemetry Heart Rate 70 Telemetry SPO2 93 EKG QRS Interval 0.12 H Telemetry Strip Reading VPACED W/ BBB 03/20/23 21:03 03/20/23 21:03 03/20/23 23:00 Temperature 98 F Temperature Source Oral Pulse Rate 70 Respiratory Rate 22 H Blood Pressure 136/72 Blood Pressure Mean 93 Blood Pressure Left Arm Blood Pressure Location Left Arm Blood Pressure Position Supine O2 Sat by Pulse Oximetry 93 L Oxygen Delivery Method Nasal Cannula Nasal Cannula Nasal Cannula Oxygen Flow Rate 2 Height Weight Telemetry Type Telemetry Monitoring Telemetry Heart Rate Telemetry SPO2 EKG QRS Interval Telemetry Strip [place] 03/21/23 00:00 03/21/23 00:35 03/21/23 01:00 Temperature Temperature Source Pulse Rate Respiratory Rate Blood Pressure Blood Pressure Mean Blood Pressure Left Arm Blood Pressure Location Blood Pressure Position O2 Sat by Pulse Oximetry Oxygen Delivery Method Nasal Cannula Nasal Cannula Oxygen Flow Rate Height Weight Telemetry Type Bedside Monitor Telemetry Monitoring Continues Telemetry Heart Rate 70 Telemetry SPO2 94 EKG QRS Interval 0.13 H Telemetry Strip Reading V PACED 03/21/23 02:00 03/21/23 03:00 03/21/23 04:00 Temperature Temperature Source Pulse Rate Respiratory Rate Blood Pressure Blood Pressure Mean Blood Pressure Left Arm Blood Pressure Location Blood Pressure Position O2 Sat by Pulse Oximetry Oxygen Delivery Method Nasal Cannula Nasal Cannula Nasal Cannula Oxygen Flow Rate Height Weight Telemetry Type Telemetry Monitoring Telemetry Heart Rate Telemetry SPO2 EKG QRS Interval Telemetry Strip [place] 03/21/23 05:00 03/21/23 05:32 03/21/23 05:33 Temperature 97.9 F Temperature Source Oral Pulse Rate 73 Respiratory Rate 25 H Blood Pressure 131/70 Blood Pressure Mean 90 Blood Pressure Left Arm Blood Pressure Location Left Arm Blood Pressure Position Supine O2 Sat by Pulse Oximetry 92 L Oxygen Delivery Method Nasal Cannula Nasal Cannula Oxygen Flow Rate 2 Height Weight 148 lb 9.6 oz Telemetry Type Telemetry Monitoring Telemetry Heart Rate Telemetry SPO2 EKG QRS Interval Telemetry Strip [place] 03/21/23 05:37 03/21/23 07:00 03/21/23 07:00 Temperature Temperature Source Pulse Rate Respiratory Rate Blood Pressure Blood Pressure Mean Blood Pressure Left Arm Blood Pressure Location Blood Pressure Position O2 Sat by Pulse Oximetry Oxygen Delivery Method Nasal Cannula Nasal Cannula Oxygen Flow Rate Height Weight Telemetry Type Bedside Monitor Telemetry Monitoring Continues Telemetry Heart Rate Telemetry SPO2 EKG QRS Interval 0.16 H Telemetry Strip Reading V PACED 03/21/23 07:56 Temperature Temperature Source Pulse Rate Respiratory Rate Blood Pressure Blood Pressure Mean Blood Pressure Left Arm Blood Pressure Location Blood Pressure Position O2 Sat by Pulse Oximetry Oxygen Delivery Method Nasal Cannula Oxygen Flow Rate Height Weight Telemetry Type Telemetry Monitoring Telemetry Heart Rate Telemetry SPO2 EKG QRS Interval Telemetry Strip Reading Lab Results Lab Results: Lab Results: Last 24 Hours 03/21/23 03/21/23 03/20/23 06:00 05:00 15:03 WBC 7.42 RBC 3.55 L Hgb 10.6 L Hct 32.2 L MCV 90.7 MCH 29.9 MCHC 32.9 RDW Coeff of Adria 14.7 Plt Count 161 Immature Gran % (Auto) 0.5 Neut % (Auto) 84.3 H Lymph % (Auto) 6.[address] [place] % (Auto) 8.8 Eos % (Auto) 0.0 Baso % (Auto) 0.1 Neut # (Auto) 6.3 Lymph # (Auto) 0.[address] [place] # (Auto) 0.7 Eos # (Auto) 0.0 Baso # (Auto) 0.0 Immature Gran # (Auto) 0.0 PT INR APTT Sodium 133.6 L Potassium 3.73 Chloride 99.7 Carbon Dioxide 25.6 Anion Gap 12.03 BUN 18.9 Creatinine 0.70 Estimated GFR (MDRD) 107.00 BUN/Creatinine Ratio 27.00 Glucose 202.1 H D Calcium 8.33 L Total Bilirubin 2.34 H AST 95.2 H D ALT 129.3 H Alkaline Phosphatase 103.1 Troponin I 0.060 NT-Pro-B Natriuret Pep Total Protein 7.41 Albumin 3.64 Globulin 3.77 Albumin/Globulin Ratio 0.96 D-Dimer Urine Color Urine Clarity Urine pH Ur Specific [place] Urine Protein Urine Glucose (UA) Urine Ketones Urine Blood Urine Nitrite Urine Bilirubin Urine Urobilinogen Ur Leukocyte Esterase Urine Microscopic RBC Urine Microscopic WBC Ur Squamous Epith Cells Triple Phos Crystals Urine Bacteria Urine Mucus Urine Yeast Influ A Molecular Assay Influ B Molecular Assay SARS CoV-2 RNA Rapid OMID 03/20/23 03/20/23 03/20/23 13:15 11:52 11:35 WBC 5.05 RBC 3.52 L Hgb 10.4 L Hct 32.3 L MCV 91.8 MCH 29.5 MCHC 32.2 RDW Coeff of [place]ria 15.2 H Plt Count 143 Immature Gran % (Auto) 0.4 Neut % (Auto) 80.8 H Lymph % (Auto) 8.[address] [place] % (Auto) 9.7 Eos % (Auto) 0.0 Baso % (Auto) 0.2 Neut # (Auto) 4.1 Lymph # (Auto) 0.[address] [place] # (Auto) 0.5 Eos # (Auto) 0.0 Baso # (Auto) 0.0 Immature Gran # (Auto) 0.0 PT 14.5 H INR 1.41 APTT 53.9 H Sodium 135.0 Potassium 3.53 Chloride 103.5 Carbon Dioxide 23.6 Anion Gap 11.43 BUN 16.6 Creatinine 0.71 Estimated GFR (MDRD) 106.00 BUN/Creatinine Ratio 23.38 Glucose 144.2 H Calcium 8.24 L Total Bilirubin 2.56 H AST 124.5 H ALT 159.0 H Alkaline Phosphatase 90.1 Troponin I 0.073 NT-Pro-B Natriuret Pep 4100 H Total Protein 7.37 Albumin 3.64 Globulin 3.73 Albumin/Globulin Ratio 0.97 D-Dimer 682.28 H Urine Color Dark Urine Clarity Clear Urine pH 6.0 Ur Specific [place] 1.025 Urine Protein 3+ H Urine Glucose (UA) Negative Urine Ketones Trace H Urine Blood 2+ H Urine Nitrite Positive H Urine Bilirubin 1+ H Urine Urobilinogen >=8.0 Ur Leukocyte Esterase Negative Urine Microscopic RBC 5-10 Urine Microscopic WBC 0-2 Ur Squamous Epith Cells Not present Triple Phos Crystals Trace Urine Bacteria 1+ Urine Mucus 1+ Urine Yeast 1+ Influ A Molecular Assay Negative by naat Influ B Molecular Assay Negative by naat SARS CoV-2 RNA Rapid OMID Positive H Additional Comments Additional Comments: I have independently reviewed and interpreted the labs/EKGs/imaging ordered during this hospital stay. I have reviewed outside records that are available in our EMR that pertain to medical stay including imaging/notes/labs from previous visits. Active Medications Active Medications: Medications Generic Name Dose Route Start Last Admin Trade Name Freq PRN Reason Stop Dose Admin Acetaminophen 650 mg 03/20/23 15:23 Acetaminophen 325 Mg Tablet PO Q4H PRN Mild Pain Albuterol Sulfate 2.5 mg 03/20/23 15:26 Albuterol Sulfate 0.083% Vial.Neb NEB RTQ4H PRN Wheezing Albuterol/Ipratropium 3 ml 03/20/23 18:00 03/21/23 04:56 Ipratropium/Albuterol Vial.Neb NEB 3 ml RTQ4H [place] Administration Atenolol 50 mg 03/21/23 09:00 Atenolol 50 Mg Tablet PO DAILY [place] Dexamethasone Sodium Phosphate 6 mg 03/21/23 09:00 Dexamethasone Sod Phos 10 Mg/Ml Inj IVP DAILY [place] Fish Oil 1,000 mg 03/20/23 21:00 03/20/23 20:13 [place]-3/Dha/Epa/Fish Oil 1,000 Mg Capsule PO 1,000 mg BID [place] Administration Furosemide 40 mg 03/20/23 23:00 03/21/23 05:21 Furosemide Inj 40 Mg/4 Ml Vial IVP 40 mg Q8HR [place] Administration CEFTRIAXONE/D5W 1 GM PREMIX 1 gm in 50 mls @ 75 mls/hr 03/21/23 09:00 Rocephin 1 Gm/50 Ml D5w IV 03/24/23 08:59 DAILY [facility] Insulin Human Regular 0 unit 03/20/23 15:45 03/21/23 06:13 Insulin Regular, Human 100 Unit/Ml (3ml) Vial SUBCUT 2 unit PRN PRN Administration Hyperglycemia Protocol Losartan Potassium 50 mg 03/20/23 21:00 03/20/23 20:13 Losartan Potassium 100 Mg Tablet PO 50 mg BID [place] Administration Non-Formulary Medication 150 mg 03/20/23 21:00 03/20/23 20:23 Dabigatran Etexilate [Pradaxa] PO 150 mg BID [place] Administration Plan Plan: 1. Acute Hypoxic Respiratory Failure in setting of Covid-19 and CHF exacerbation - wean oxygen as tolerated, nebs, steroids, lasix 40mg Q8H 2. Covid-19 - out of window for viral therapy, steroids, nebs, oxygen, checking ferritin, crp, ldh, 2. Acute Diastolic HFpEF exacerbation - last EF in 06/21 was 60%, repeat echo, lasix 40 Q8H IVP, I&O, weigh daily, 1800 fluid restriction 3. Acute Transaminitis - Improving, likely due to #1, ultrasound negative for acute findings, monitor 4. UTI - urine culture showing contaminate. Denies urinary symptoms. Stopping rocephin. 5. A Fib - chronic, not in RVR, continue home medications 6. Hypertension - chronic, continue home medications 7. DM, Type 2 - ADA diet, hold oral agents, accuchecks ACHS with SSI DVT Prophylaxis: Lovenox Review Statement Review Statement: I have personally discussed and reviewed the patient's visit/currently labs/imaging/decision making with Dr. Delarosa, my supervising attending. Greater that 50 minutes spent with patient, 50% of the time spent with this pa tient was devoted to counseling and coordination of care.
[2023-03-21] MEDS: OMEGA-3 FISH OIL PO SCH ×2 (09:17→21:17)
[2023-03-21] MEDS: DECADRON IVP SCH (09:17)
[2023-03-21] MEDS: COZAAR PO SCH (09:18)
[2023-03-21] MEDS: TENORMIN PO SCH (09:19)
[2023-03-21] MEDS: ENTRESTO 24 MG-26 MG TABLET PO SCH (21:17)
[2023-03-21 21:39] LABS: BILIRUBIN,URINE Negative (NEGATIVE); CLARITY,URINE Clear (CLEAR); COLOR,URINE Yellow (YELLOW); GLUCOSE, URINE (UA) Negative (NEGATIVE); KETONES,URINE Negative (NEGATIVE); LEUKOCYTE ESTERASE ,URINE Negative (NEGATIVE); NITRITE,URINE Negative (NEGATIVE); PROTEIN,URINE 2+ (NEGATIVE); URINE, BLOOD 2+ (NEGATIVE)
[2023-03-21 21:44] LABS: URINE RBC, MICROSCOPIC 0-2 (0-2)
[2023-03-21] MEDS: TYLENOL PO PRN (22:14)
[2023-03-22] MEDS: DUONEB NEB SCH ×6 (01:35→22:10)
[2023-03-22 05:05] LABS: BASOPHILS % (AUTO) 0.1 % (0.0-3.0); HEMATOCRIT 34.4 % (42.0-52.0); HEMOGLOBIN 11.6 g/dl (14.0-18.0); IMMATURE GRANULOCYTE # (AUTO) 0.1 (0.0-1.0); IMMATURE GRANULOCYTE % (AUTO) 0.4 % (0.0-5.0); LYMPHOCYTES # (AUTO) 0.7 K/uL (0.60-3.4); LYMPHOCYTES % (AUTO) 4.6 (10.0-50.0); MEAN CORPUSCULAR HEMOGLOBIN 29.7 pg (27.0-31.0); MEAN CORPUSCULAR HGB CONC 33.7 (31.8-35.4); MONOCYTES # (AUTO) 0.9 K/uL (0.4-2.0); MONOCYTES % (AUTO) 5.9 (0-10); PLATELET COUNT 204 10^3/uL (140-440); RDW COEFFICIENT OF VARIATION 14.6 % (11.6-14.8); RED BLOOD COUNT 3.91 10^6/ul (4.70-6.10); WHITE BLOOD COUNT 15.74 K/ul (4.2-10.2)
[2023-03-22 05:19] LABS: ALBUMIN 3.63 g/dL (3.5-5.0); ALKALINE PHOSPHATASE 90.6 U/L (56-119); ASPARTATE AMINO TRANSFERASE 69.9 U/L (17-59); BILIRUBIN,TOTAL 2.57 mg/dL (0.2-1.3); CALCIUM 8.1 mg/dL (8.4-10.2); CARBON DIOXIDE 31.7 mmol/L (22-30.0); CREATININE 0.73 mg/dL (0.60-1.10); GLUCOSE 199.6 mg/dL (74-106); POTASSIUM 3.14 mmol/L (3.5-5.1); SODIUM 133.3 mmol/L (134.5-145); TOTAL PROTEIN 7.45 g/dL (6.3-8.2)
[2023-03-22] MEDS: LASIX IVP SCH ×3 (05:40→20:39)
[2023-03-22] MEDS ORDERED: K-DUR PO ONE (07:01)
--- NOTE | 2023-03-22 07:48 | DI ---
EXAM: CHEST ONE VIEW, FRONTAL VIEW ONLY. HISTORY: Shortness of breath. COMPARISON: 03/20/2023. FINDINGS: Left-sided pacemaker noted. Heart is enlarged. Atherosclerotic calcifications present. Calcified lymph nodes in the again noted. Perihilar right lung consolidation and left mid to lower l jj consolidation appears slightly increased. No pneumothorax identified. No acute osseous abnormal ity is seen. Clips present in the upper abdomen. Old lower left lateral rib fractures. IMPRESSION: Mild worsening of bilateral consolidation which could represent pneumonia.
[2023-03-22] MEDS: ROCEPHIN 1 GM/50 ML D5W 1 GM/50 ML BAG IV SCH (08:15)
[2023-03-22] MEDS: JARDIANCE PO SCH (08:17)
[2023-03-22] MEDS: ENTRESTO 24 MG-26 MG TABLET PO SCH ×2 (08:18→20:39)
[2023-03-22] MEDS: OMEGA-3 FISH OIL PO SCH ×2 (08:18→20:39)
[2023-03-22] MEDS: ALDACTONE PO SCH (08:18)
[2023-03-22] MEDS: TENORMIN PO SCH (08:18)
[2023-03-22] MEDS: DECADRON IVP SCH (08:28)
--- NOTE | 2023-03-22 09:29 | PCM.PROG ---
Date/Time Seen Date Seen by Provider: 03/22/23 Time Seen by Provider: 09:00 Provider Provider[facility] WALT [facility]IM[facility] Chief Complaint Chief Complaint: COVID+; PULMONARY ADEMA Subjective Subjective: Nurse contacted this provider at 1900 last night reporting patient was found sitting in the floor. Reports he did not fall, but became weak and eased himself down to the floor. reports that he becomes confused at times at home especially in the evenings. Has had worsening weakness over the past several weeks. Has not done PT/OT. Continuing to require oxygen - 2L maintaining a O2 sat between 90-94%. Objective Appearance: Positive Alert and Oriented x3 and Ill-Appearing Chest/Lungs: Positive Symmetrical With Equal Breath Sounds, Good Air Movement all 4 Lung Chambers and Other (crackles to LLL) Heart: Positive RRR and Pulses Normal GI/: Positive Soft, Nontender and Bowel Sounds Normal Musculoskeletal: Positive Not Examined Neurological: Positive Sensation Intact, Motor intact, Reflexes Intact, Alert, Oriented and Other (generalized weakness) Vital Signs Vital Signs: Vital Signs: Last 24 Hours 03/21/23 09:57 03/21/23 09:58 03/21/23 10:55 Temperature Temperature Source Pulse Rate Respiratory Rate Blood Pressure Blood Pressure Mean Blood Pressure Location Blood Pressure Position O2 Sat by Pulse Oximetry 94 L Oxygen Delivery Method Nasal Cannula Nasal Cannula Nasal Cannula Oxygen Flow Rate 1.5 Weight Telemetry Type Telemetry Monitoring Telemetry Heart Rate Telemetry SPO2 EKG QRS Interval Telemetry Strip [place] 03/21/23 11:56 03/21/23 13:00 03/21/23 13:00 Temperature Temperature Source Pulse Rate Respiratory Rate Blood Pressure Blood Pressure Mean Blood Pressure Location Blood Pressure Position O2 Sat by Pulse Oximetry Oxygen Delivery Method Nasal Cannula Nasal Cannula Oxygen Flow Rate Weight Telemetry Type Bedside Monitor Telemetry Monitoring Continues Telemetry Heart Rate 71 Telemetry SPO2 97 EKG QRS Interval 0.11 H Telemetry Strip Reading V Paced w/BBB 03/21/23 13:32 03/21/23 13:54 03/21/23 14:00 Temperature Temperature Source Pulse Rate 70 Respiratory Rate 24 H Blood Pressure 132/68 Blood Pressure Mean 89 Blood Pressure Location Left Arm Blood Pressure Position Supine O2 Sat by Pulse Oximetry 95 96 Oxygen Delivery Method Nasal Cannula Nasal Cannula Room Air Oxygen Flow Rate 1.5 Weight Telemetry Type Telemetry Monitoring Telemetry Heart Rate Telemetry SPO2 EKG QRS Interval Telemetry Strip [place] 03/21/23 15:00 03/21/23 16:00 03/21/23 17:00 Temperature Temperature Source Pulse Rate Respiratory Rate Blood Pressure Blood Pressure Mean Blood Pressure Location Blood Pressure Position O2 Sat by Pulse Oximetry Oxygen Delivery Method Room Air Room Air Room Air Oxygen Flow Rate Weight Telemetry Type Telemetry Monitoring Telemetry Heart Rate Telemetry SPO2 EKG QRS Interval Telemetry Strip [place] 03/21/23 17:48 03/21/23 19:00 03/21/23 19:00 Temperature Temperature Source Pulse Rate Respiratory Rate Blood Pressure Blood Pressure Mean Blood Pressure Location Blood Pressure Position O2 Sat by Pulse Oximetry Oxygen Delivery Method Room Air Room Air Oxygen Flow Rate Weight Telemetry Type Bedside Monitor Telemetry Monitoring Continues Telemetry Heart Rate 81 Telemetry SPO2 93 EKG QRS Interval 0.08 Telemetry Strip [place] paced 03/21/23 20:00 03/21/23 20:00 03/21/23 20:00 Temperature Temperature Source Pulse Rate Respiratory Rate 21 H Blood Pressure Blood Pressure Mean Blood Pressure Location Blood Pressure Position O2 Sat by Pulse Oximetry 94 L Oxygen Delivery Method Room Air Nasal Cannula Nasal Cannula Oxygen Flow Rate 2 2 Weight Telemetry Type Telemetry Monitoring Telemetry Heart Rate Telemetry SPO2 EKG QRS Interval Telemetry Strip [place] 03/21/23 21:00 03/21/23 22:00 03/21/23 22:00 Temperature 99.0 F Temperature Source Oral Pulse Rate 77 Respiratory Rate Blood Pressure 138/64 Blood Pressure Mean 88 Blood Pressure Location Left Arm Blood Pressure Position Supine O2 Sat by Pulse Oximetry 92 L Oxygen Delivery Method Nasal Cannula Nasal Cannula Nasal Cannula Oxygen Flow Rate 2 Weight Telemetry Type Telemetry Monitoring Telemetry Heart Rate Telemetry SPO2 EKG QRS Interval Telemetry Strip [place] 03/21/23 23:00 03/22/23 00:00 03/22/23 01:00 Temperature Temperature Source Pulse Rate Respiratory Rate Blood Pressure Blood Pressure Mean Blood Pressure Location Blood Pressure Position O2 Sat by Pulse Oximetry Oxygen Delivery Method Nasal Cannula Nasal Cannula Nasal Cannula Oxygen Flow Rate Weight Telemetry Type Telemetry Monitoring Telemetry Heart Rate Telemetry SPO2 EKG QRS Interval Telemetry Strip [place] 03/22/23 01:00 03/22/23 02:00 03/22/23 02:00 Temperature 98.8 F Temperature Source Oral Pulse Rate 70 Respiratory Rate 21 H Blood Pressure 110/64 Blood Pressure Mean 79 Blood Pressure Location Left Arm Blood Pressure Position Supine O2 Sat by Pulse Oximetry 94 L Oxygen Delivery Method Nasal Cannula Nasal Cannula Oxygen Flow Rate 2 Weight Telemetry Type Bedside Monitor Telemetry Monitoring Continues Telemetry Heart Rate 72 Telemetry SPO2 97 EKG QRS Interval 0.12 H Telemetry Strip [place] v paced w/BBB 03/22/23 03:00 03/22/23 04:00 03/22/23 04:00 Temperature Temperature Source Pulse Rate Respiratory Rate Blood Pressure Blood Pressure Mean Blood Pressure Location Blood Pressure Position O2 Sat by Pulse Oximetry Oxygen Delivery Method Nasal Cannula Nasal Cannula Nasal Cannula Oxygen Flow Rate Weight Telemetry Type Telemetry Monitoring Telemetry Heart Rate Telemetry SPO2 EKG QRS Interval Telemetry Strip [place] 03/22/23 05:00 03/22/23 05:19 03/22/23 06:00 Temperature Temperature Source Pulse Rate Respiratory Rate Blood Pressure Blood Pressure Mean Blood Pressure Location Blood Pressure Position O2 Sat by Pulse Oximetry Oxygen Delivery Method Nasal Cannula Nasal Cannula Nasal Cannula Oxygen Flow Rate 2 Weight Telemetry Type Telemetry Monitoring Telemetry Heart Rate Telemetry SPO2 EKG QRS Interval Telemetry Strip [place] 03/22/23 06:00 03/22/23 06:00 03/22/23 07:00 Temperature 98.1 F Temperature Source Oral Pulse Rate 70 Respiratory Rate 22 H Blood Pressure 118/67 Blood Pressure Mean 84 Blood Pressure Location Left Arm Blood Pressure Position Supine O2 Sat by Pulse Oximetry 91 L Oxygen Delivery Method Nasal Cannula Nasal Cannula Oxygen Flow Rate 2 Weight 147 lb 3 oz Telemetry Type Telemetry Monitoring Telemetry Heart Rate Telemetry SPO2 EKG QRS Interval Telemetry Strip [place] 03/22/23 07:00 03/22/23 08:00 03/22/23 09:00 Temperature Temperature Source Pulse Rate Respiratory Rate Blood Pressure Blood Pressure Mean Blood Pressure Location Blood Pressure Position O2 Sat by Pulse Oximetry Oxygen Delivery Method Nasal Cannula Nasal Cannula Oxygen Flow Rate Weight Telemetry Type Bedside Monitor Telemetry Monitoring Continues Telemetry Heart Rate 70 Telemetry SPO2 95 EKG QRS Interval 0.09 Telemetry Strip Reading V paced with BBB Lab Results Lab Results: Lab Results: Last 24 Hours 03/22/23 03/21/23 03/21/23 04:55 21:30 09:30 WBC 15.74 H D RBC 3.91 L Hgb 11.6 L Hct 34.4 L MCV 88.0 MCH 29.7 MCHC 33.7 RDW Coeff of Adria 14.6 Plt Count 204 Immature Gran % (Auto) 0.4 Neut % (Auto) 89.0 H Lymph % (Auto) 4.6 L [place] % (Auto) 5.9 Eos % (Auto) 0.0 Baso % (Auto) 0.1 Neut # (Auto) 14.0 H Lymph # (Auto) 0.7 [place] # (Auto) 0.9 Eos # (Auto) 0.0 Baso # (Auto) 0.0 Immature Gran # (Auto) 0.1 Sodium 133.3 L Potassium 3.14 L Chloride 95.0 L Carbon Dioxide 31.7 H Anion Gap 9.74 BUN 22.0 H Creatinine 0.73 Estimated GFR (MDRD) 102.00 BUN/Creatinine Ratio 30.13 Glucose 199.6 H Calcium 8.10 L Ferritin 367.00 Total Bilirubin 2.57 H AST 69.9 H D ALT 106.0 H Alkaline Phosphatase 90.6 Total Protein 7.45 Albumin 3.63 Globulin 3.82 Albumin/Globulin Ratio 0.95 Procalcitonin 0.48 H Urine Color Yellow Urine Clarity Clear Urine pH 6.0 Ur Specific [place] 1.020 Urine Protein 2+ H Urine Glucose (UA) Negative Urine Ketones Negative Urine Blood 2+ H Urine Nitrite Negative Urine Bilirubin Negative Urine Urobilinogen 1.0 H Ur Leukocyte Esterase Negative Urine Microscopic RBC 0-2 Ur Squamous Epith Cells Not Reportable Additional Comments Additional Comments: I have independently reviewed and interpreted the labs/EKGs/imaging ordered during this hospital stay. I have reviewed outside records that are available in our EMR that pertain to medical stay including imaging/notes/labs from previous visits. Active Medications Active Medications: Medications Generic Name Dose Route Start Last Admin Trade Name Freq PRN Reason Stop Dose Admin Acetaminophen 650 mg 03/20/23 15:23 03/21/23 22:14 Acetaminophen 325 Mg Tablet PO 650 mg Q4H PRN Administration Mild Pain Albuterol Sulfate 2.5 mg 03/20/23 15:26 Albuterol Sulfate 0.083% Vial.Neb NEB RTQ4H PRN Wheezing Albuterol/Ipratropium 3 ml 03/20/23 18:00 03/22/23 05:15 Ipratropium/Albuterol Vial.Neb NEB 3 ml RTQ4H [place] Administration Atenolol 50 mg 03/21/23 09:00 03/22/23 08:18 Atenolol 50 Mg Tablet PO 50 mg DAILY [place] Administration Dexamethasone Sodium Phosphate 6 mg 03/21/23 09:00 03/22/23 08:28 Dexamethasone Sod Phos 10 Mg/Ml Inj IVP 6 mg DAILY [place] Administration Empagliflozin 25 mg 03/22/23 09:00 03/22/23 08:17 Empagliflozin 10 Mg Tablet PO 25 mg DAILY [place] Administration Fish Oil 1,000 mg 03/20/23 21:00 03/22/23 08:18 [place]-3/Dha/Epa/Fish Oil 1,000 Mg Capsule PO 1,000 mg BID [place] Administration Furosemide 40 mg 03/20/23 23:00 03/22/23 05:40 Furosemide Inj 40 Mg/4 Ml Vial IVP 40 mg Q8HR [place] Administration Azithromycin 500 mg/ Sodium 250 mls @ 250 mls/hr 03/22/23 09:00 Chloride IV 03/25/23 08:59 DAILY [place] CEFTRIAXONE/D5W 1 GM PREMIX 1 gm in 50 mls @ 100 mls/hr 03/22/23 09:00 03/22/23 08:15 Rocephin 1 Gm/50 Ml D5w IV 03/25/23 08:59 100 mls/hr DAILY [place] Administration Insulin Human Regular 0 unit 03/20/23 15:45 03/21/23 18:43 Insulin Regular, Human 100 Unit/Ml (3ml) Vial SUBCUT 2 unit PRN PRN Administration Hyperglycemia Protocol Non-Formulary Medication 150 mg 03/22/23 09:00 03/22/23 08:53 Dabigatran Etexilate [Pradaxa] PO 150 mg BID [place] Administration Sacubitril/Valsartan 1 each 03/21/23 21:00 03/22/23 08:18 Sacubitril/Valsartan 1 Each Tablet PO 1 each BID [place] Administration Sodium Chloride 1 syr 03/21/23 21:00 03/22/23 05:41 0.9% Sodium Chloride 10 Ml Disp.Syrin IVF 1 syr Q8HR [place] Administration Spironolactone 25 mg 03/22/23 09:00 03/22/23 08:18 Spironolactone 25 Mg Tablet PO 25 mg DAILY [place] Administration Plan Plan: 1. Acute Hypoxic Respiratory Failure in setting of Covid-19 Pneumonia and CHF exacerbation - wean oxygen as tolerated, nebs, steroids, lasix 40mg Q8H 2. Covid-19 Pneumonia - azith and rocephin, nebs, steroids 3. Acute Diastolic HFpEF exacerbation - last EF in 06/21 was 60%, repeat echo, lasix 40 Q8H IVP, I&O, weigh daily, 1800 fluid restriction 4. Acute Transaminitis - Improving, likely due to #1, ultrasound negative for acute findings, monitor 5. Covid-19 - out of window for viral therapy, steroids, nebs, oxygen, checking ferritin, crp, ldh, 6. UTI - urine culture showing contaminate. Denies urinary symptoms. Stopping rocephin. 7. A Fib - chronic, not in RVR, continue home medications 8. Hypertension - chronic, continue home medications 9. DM, Type 2 - ADA diet, hold oral agents, accuchecks ACHS with SSI 10. Weakness/Debility - PT/OT DVT Prophylaxis: Lovenox Review Statement Review Statement: I have personally discussed and reviewed the patient's visit/currently labs/imaging/decision making with Dr. Delarosa, my supervising attending. Greater that 50 minutes spent with patient, 50% of the time spent with this patient was devoted to counseling and coordination of care.
[2023-03-22] MEDS: ZITHROMAX 500 MG in SODIUM CHLORIDE 250 ML IV SCH (09:31)
[2023-03-22] MEDS: TYLENOL PO PRN (09:57)
[2023-03-22] MEDS: HUMULIN R SUBCUT PRN ×4 (11:06→21:00)
--- NOTE | 2023-03-22 12:11 | RS.PTINEVL ---
Subjective Patient information Date of Evaluation: 03/22/23 Date of Arrival on Unit: 03/20/23 Admitted From:: Home Diagnosis: acute hypoxic respiratory failure w COVID, pneumonia, CHF exacerbation Usual Living Arrangement: With Spouse Living Arrangement Comments: Lives with spouse, dtr and 2 dogs Home Environment: House, Stairs (few) and Rail Medical History: Hypertension, Diabetes, CHF, Arthritis and Cancer (prostate) Medical History Comments:: Afib, UTI, polymyalgia rheumatica LATEX ALLERGY?: No Surgical History Comments:: pacemaker Medications: see chart Subjective Information/ Patient Comments:: pt states that he got very weak at home and also reports that he fell last night while in hospital. 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 Current Level of Function: Partially Dependent Current Equipment Used at Home: n/a Interventions Objective Patient Orientation: Person and Place Current Interventions: Oxygen (2 liters) and Telemetry Range of Motion ROM Right Upper Extremity AROM: WFL's Left Upper Extremity AROM: WFL's Right Lower Extremity AROM: WFL's Left Lower Extremity AROM: WFL's Muscle Strength Muscle Strength Right Upper Extremity: Mild Weakness (grossly 4/5) Left Upper Extremity: Mild Weakness (grossly 4/5) Right Lower Extremity: Mild Weakness (hip flex 4-/5, knee flex/ext 4/5, ankle DF/PF 4/5) Left Lower Extremity: Mild Weakness (hip flex 4-/5, knee flex/ext 4/5, ankle DF/PF 4/5) Sensation Sensation Right Upper Extremity: Intact/Normal Left Upper Extremity: Intact/Normal Right Lower Extremity: Intact/Normal Left Lower Extremity: Intact/Normal Palpation Palpation Findings: None/Normal Balance Sitting Balance and Reactions Static Sitting Balance: Good Dynamic Sitting Balance: Fair Standing Balance and Reactions Static Standing Balance: Poor Dynamic Standing Balance: Poor Standing Equilibrium Reactions: Delayed Left and Delayed Right Standing Protective Reactions: Delayed Left and Delayed Right Functional Mobility Bed Mobility Sit to Supine: CGA Comments:: pt seen in bathroom on toilet without O2 per SOFTWARE TEST MANAGER. Transfers Sit to Stand: CGA Stand to Sit: CGA Stand Pivot Transfers: CGA Comments:: when pt back to bed pulse ox 87%, O2 and monitor reapplied. Safety Awareness Safety Awareness: Fair NAOMI INDEX SCORE: n/a Ambulation Ambulation Assistive Device Used: Gait belt Orthotic/Prosthetic Device: No Distance: amb 20ft with CONSTRUCTION CREW MEMBER and gait belt Assistance needed with Ambulation: CGA Gait Deviations: Forward posture, Short stride and Deviates from path Factors Affecting Ambulation: Decreased Balance, Breathing/O2 Saturation, Weakness, Decreased Safety and Limited Endurance Treatment time Time with patient Length of Evaluation: 18 Total treatment time: 29 Patient Education Education Patient Education: Activity Modification and Education of Plan of Care Teaching Recipient: Patient Teaching Methods: Discussion Comments: discussion regarding POC. Assessment Assessment Problem List:: Decreased level of function, Requires training/education, Decreased safety/Risk of falls, Weakness and Cognitive status limits abilities Rehab Potential: Fair Further Therapy Indicated?: Yes Candidate for Swing Bed for Therapy Services?: Would need to reassess closer to date, pt may be at a higher functional level. Evaluation Complexity: HISTORY: Medium, EXAM OF BODY SYSTEMS: Medium, CLINICAL PRESENTATION: Medium and CLINICAL DECISION MAKING: Medium Patient's Goal(s): Go back home and be stronger. Short Term Goals GOAL #1: pt independent with rolling and scooting in bed. Goal to be met by: 03/25/23 GOAL #2: Transfer sup to/from sit CGA Goal to be met by: 03/25/23 GOAL #3: Transfer sit to/from stand SBA Goal to be met by: 03/25/23 GOAL #4: pt amb with AAD 50ft with CGA no LOB. Goal to be met by: 03/25/23 GOAL #5: Improve BLE Strength 4+/5 Goal to be met by: 03/25/23 [facility] Goals GOAL #1: pt transfer sup to/from sit to/from stand SBA to independent. Goal to be met by: 03/27/23 GOAL #2: pt amb with AAD functional household distances SBA to independent. Goal to be met by: 03/27/23 GOAL #3: Ascend/descend 2 steps with HR SBA Goal to be met by: 03/27/23 Plan Plan of Care: Therapeutic EX and Therapeutic Activity Other:: gait training Frequency of Treatment: 1-2 X day, as tolerated Duration of Treatment: 5 days Anticipated Discharge Destination: Home Treatment Diagnosis (ICD 10 Codes): impaired balance R 26.81 gait difficulty R 26.2 weakness M62.81 Has the Physician been added for Co-signature?: Yes
--- NOTE | 2023-03-22 14:40 | RS.OTINEVL ---
Subjective Patient information Date of Evaluation: 03/22/23 Date of Arrival on Unit: 03/20/23 Admitted From:: Home Diagnosis: Covid + Pulmonary Edema PRECAUTIONS: Fall risk, covid fog Usual Living Arrangement: With Spouse Living Arrangement Comments: Lives with spouse, dtr and 2 dogs Home Environment: House, Stairs (few) and Rail Medical History: Hypertension, Diabetes, CHF, Arthritis and Cancer (prostate) Medical History Comments:: Afib, UTI, polymyalgia rheumatica LATEX ALLERGY?: No Surgical History Comments:: pacemaker Medications: see chart Subjective Information/ Patient Comments:: "I have a seat. 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 Pt walks without an assistive device. Current Level of Function: Partially Dependent Comments: Pt is fatigued and short of breath. Current Equipment Used at Home: n/a Interventions Objective Observation: Pt is confused intermittently. Pt could not answer questions correctly consistantly. Interventions ROM Right Upper Extremity AROM: WFL's Left Upper Extremity AROM: WFL's Strength Right Upper Extremity: Normal Left Upper Extremity: Normal Sensation Right Upper Extremity: Intact/Normal Left Upper Extremity: Intact/Normal ADL Skills Self Feeding Self Feeding: Independent Grooming Grooming: Supervision Bathing Bathing UE: Not Tested Bathing LE: Not Tested Toilet Management Toilet Hygiene: Independent Toilet Clothing Management: Min Assist and Verbal Cues Functional Mobility Transfers Sit to Stand: CGA Stand to Sit: CGA Stand Pivot Transfers: CGA Ambulation Weight Bearing Status: FWB Assistance needed with Ambulation: CGA Safety Awareness Safety Awareness: Poor NAOMI INDEX SCORE: . Additional Treatment Performed Time with patient Length of Evaluation: 18 Total treatment time: 19 Patient Education Patient Education: Education of diagnosis and Education of Plan of Care Teaching Recipient: Patient Teaching Methods: Discussion Assessment Problem List:: Decreased level of function, Requires training/education, Decreased safety/Risk of falls and Weakness Rehab Potential: Fair Further Therapy Indicated?: Yes Evaluation Complexity: HISTORY: Medium, EXAM OF BODY SYSTEMS: Medium and CLINICA L DECISION MAKING: Medium Patient's Goal(s): To be able to go home. Short Term Goals Goals GOAL 1: Pt to be Sup with Toilet transfers. Goal to be met by: 03/26/23 GOAL 2: Pt O2 level to stay at 93 % during ADLS with O2. Goal to be met by: 03/26/23 GOAL 3: Pt to tolerate 15 minutes of Activity level. Goal to be met by: 03/26/23 [employer] Manager Goals GOAL 1: Pt to be I with ADLs. Goal to be met by: 03/28/23 GOAL 2: Pt to be I with functional transfers. Goal to be met by: 03/28/23 Plan Plan of Care: Therapeutic EX, Therapeutic Activity and Self-Care/Home Management Frequency of Treatment: 1-2 X day, as tolerated Duration of Treatment: 1 Week Anticipated Discharge Destination: Home Treatment Diagnosis (ICD 10 Codes): Weakness R53.1 Has the Physician been added for Co-signature?: Yes
[2023-03-23] MEDS: DUONEB NEB SCH ×6 (01:39→21:48)
[2023-03-23 05:35] LABS: BASOPHILS % (AUTO) 0.1 % (0.0-3.0); HEMATOCRIT 35.4 % (42.0-52.0); HEMOGLOBIN 12.2 g/dl (14.0-18.0); IMMATURE GRANULOCYTE # (AUTO) 0.2 (0.0-1.0); IMMATURE GRANULOCYTE % (AUTO) 1.2 % (0.0-5.0); LYMPHOCYTES # (AUTO) 0.9 K/uL (0.60-3.4); LYMPHOCYTES % (AUTO) 4.4 (10.0-50.0); MEAN CORPUSCULAR HEMOGLOBIN 29.7 pg (27.0-31.0); MEAN CORPUSCULAR HGB CONC 34.5 (31.8-35.4); MEAN CORPUSCULAR VOLUME 86.1 fl (80.0-94.0); MONOCYTES # (AUTO) 0.9 K/uL (0.4-2.0); MONOCYTES % (AUTO) 4.4 (0-10); NEUTROPHILS # (AUTO) 17.7 K/ul (2.0-6.9); NEUTROPHILS % (AUTO) 89.9 % (42.2-75.2); PLATELET COUNT 262 10^3/uL (140-440); RDW COEFFICIENT OF VARIATION 14.6 % (11.6-14.8); RED BLOOD COUNT 4.11 10^6/ul (4.70-6.10); WHITE BLOOD COUNT 19.66 K/ul (4.2-10.2)
[2023-03-23] MEDS: LASIX IVP SCH ×4 (05:43→20:28)
[2023-03-23 05:47] LABS: ALANINE AMINOTRANSFERASE 82.4 U/L (0-50); ALBUMIN 3.59 g/dL (3.5-5.0); ALKALINE PHOSPHATASE 114.5 U/L (56-119); ASPARTATE AMINO TRANSFERASE 51.1 U/L (17-59); BILIRUBIN,TOTAL 2.06 mg/dL (0.2-1.3); BLOOD UREA NITROGEN 27.8 mg/dL (9-20); CALCIUM 8.3 mg/dL (8.4-10.2); CARBON DIOXIDE 27.8 mmol/L (22-30.0); CHLORIDE 94.4 mmol/L (98-107); CREATININE 0.87 mg/dL (0.60-1.10); GLUCOSE 163.4 mg/dL (74-106); POTASSIUM 2.93 mmol/L (3.5-5.1); TOTAL PROTEIN 7.59 g/dL (6.3-8.2)
[2023-03-23] MEDS ORDERED: POTASSIUM CHLORIDE 20 MEQ/100 ML PREMIX 40 MEQ/200 ML BAG IV ONE (08:06)
[2023-03-23] MEDS ORDERED: K-DUR PO ONE (08:06)
[2023-03-23] MEDS: ENTRESTO 24 MG-26 MG TABLET PO SCH ×2 (08:59→20:28)
[2023-03-23] MEDS: ALDACTONE PO SCH (09:00)
[2023-03-23] MEDS: TENORMIN PO SCH (09:00)
[2023-03-23] MEDS: OMEGA-3 FISH OIL PO SCH ×2 (09:00→20:28)
[2023-03-23] MEDS: JARDIANCE PO SCH (09:01)
[2023-03-23] MEDS: DECADRON IVP SCH (09:02)
[2023-03-23] MEDS: ROCEPHIN 1 GM/50 ML D5W 1 GM/50 ML BAG IV SCH (09:03)
[2023-03-23] MEDS: ZITHROMAX 500 MG in SODIUM CHLORIDE 250 ML IV SCH (09:03)
--- NOTE | 2023-03-23 09:56 | PCM.PROG ---
Date/Time Seen Date Seen by Provider: 03/23/23 Time Seen by Provider: 09:00 Provider Provider: WALT ZIMMERMAN, [facility] Chief Complaint Chief Complaint: COVID+; PULMONARY ADEMA Subjective Subjective: No events overnight. Patient reports feeling as if his breathing is some better today. Sputum was blood tinged yesterday, improving today Still having episodes of confusion, not new per . Objective Appearance: Positive No Apparent Distress, Alert and Oriented x3 and Ill-Ap pearing Chest/Lungs: Positive Symmetrical With Equal Breath Sounds and Other (coarse in RLL) Heart: Positive RRR and Pulses Normal GI/: Positive Soft, Nontender and Bowel Sounds Normal Musculoskeletal: Positive Not Examined Neurological: Positive Sensation Intact, Motor intact, Reflexes Intact, Alert and Oriented Vital Signs Vital Signs: Vital Signs: Last 24 Hours 03/22/23 10:00 03/22/23 10:00 03/22/23 10:00 Temperature 99.9 F Temperature Source Oral Pulse Rate 87 Respiratory Rate 22 H Blood Pressure 141/101 H Blood Pressure Mean 114 Blood Pressure Location Left Arm Blood Pressure Position Sitting O2 Sat by Pulse Oximetry 92 L 94 L Oxygen Delivery Method Nasal Cannula Nasal Cannula Nasal Cannula Oxygen Flow Rate 2 2 Weight Telemetry Type Telemetry Monitoring Telemetry Heart Rate Telemetry SPO2 EKG QRS Interval Telemetry Strip Reading 03/22/23 11:00 03/22/23 12:00 03/22/23 13:00 Temperature Temperature Source Pulse Rate Respiratory Rate Blood Pressure Blood Pressure Mean Blood Pressure Location Blood Pressure Position O2 Sat by Pulse Oximetry Oxygen Delivery Method Nasal Cannula Nasal Cannula Oxygen Flow Rate Weight Telemetry Type Bedside Monitor Telemetry Monitoring Continues Telemetry Heart Rate 70 Telemetry SPO2 96 EKG QRS Interval 0.07 Telemetry Strip Reading V paced with BBB 03/22/23 13:55 03/22/23 14:00 03/22/23 17:23 Temperature Temperature Source Tympanic Pulse Rate 70 70 Respiratory Rate 22 H 25 H Blood Pressure 100/48 L 105/56 L Blood Pressure Mean 65 72 Blood Pressure Location Left Arm Right Arm Blood Pressure Position Sitting Sitting O2 Sat by Pulse Oximetry 97 97 93 L Oxygen Delivery Method Nasal Cannula Room Air Room Air Oxygen Flow Rate 2 Weight Telemetry Type Telemetry Monitoring Telemetry Heart Rate Telemetry SPO2 EKG QRS Interval Telemetry Strip Reading 03/22/23 19:00 03/22/23 19:34 03/22/23 20:00 Temperature Temperature Source Pulse Rate Respiratory Rate Blood Pressure Blood Pressure Mean Blood Pressure Location Blood Pressure Position O2 Sat by Pulse Oximetry 95 Oxygen Delivery Method Nasal Cannula Nasal Cannula Oxygen Flow Rate 2 2 Weight Telemetry Type Bedside Monitor Telemetry Monitoring Continues Telemetry Heart Rate 70 Telemetry SPO2 94 EKG QRS Interval 0.11 H Telemetry Strip Reading PACED WITH BBB 03/22/23 21:30 03/23/23 01:00 03/23/23 02:00 Temperature 98.3 F 98.6 F Temperature Source Oral Oral Pulse Rate 70 71 Respiratory Rate 22 H 25 H Blood Pressure 127/63 131/78 Blood Pressure Mean 84 95 Blood Pressure Location Right Arm Right Arm Blood Pressure Position Sitting O2 Sat by Pulse Oximetry 93 L 92 L Oxygen Delivery Method Nasal Cannula Nasal Cannula Oxygen Flow Rate 2 2 Weight Telemetry Type Bedside Monitor Telemetry Monitoring Continues Telemetry Heart Rate 70 Telemetry SPO2 92 L EKG QRS Interval 0.11 H Telemetry Strip Reading PACED WITH BBB 03/23/23 05:52 03/23/23 05:52 03/23/23 06:00 Temperature 98.7 F Temperature Source Pulse Rate 70 Respiratory Rate 27 H Blood Pressure 130/61 Blood Pressure Mean 84 Blood Pressure Location Right Arm Blood Pressure Position O2 Sat by Pulse Oximetry 91 L 93 L Oxygen Delivery Method Nasal Cannula Nasal Cannula Oxygen Flow Rate 3 3 Weight 143 lb 8 oz Telemetry Type Telemetry Monitoring Telemetry Heart Rate Telemetry SPO2 EKG QRS Interval Telemetry Strip Reading 03/23/23 07:00 03/23/23 07:57 Temperature Temperature Source Pulse Rate Respiratory Rate Blood Pressure Blood Pressure Mean Blood Pressure Location Blood Pressure Position O2 Sat by Pulse Oximetry Oxygen Delivery Method Nasal Cannula Oxygen Flow Rate 3 Weight Telemetry Type Bedside Monitor Telemetry Monitoring Continues Telemetry Heart Rate 74 Telemetry SPO2 EKG QRS Interval 0.11 H Telemetry Strip Reading paced with BBB Lab Results Lab Results: Lab Results: Last 24 Hours 03/23/23 03/21/23 05:24 09:30 WBC 19.66 H RBC 4.11 L Hgb 12.2 L Hct 35.4 L MCV 86.1 MCH 29.7 MCHC 34.5 RDW Coeff of Adria 14.6 Plt Count 262 Immature Gran % (Auto) 1.2 Neut % (Auto) 89.9 H Lymph % (Auto) 4.4 L [place] % (Auto) 4.4 Eos % (Auto) 0.0 Baso % (Auto) 0.1 Neut # (Auto) 17.7 H Lymph # (Auto) 0.9 [place] # (Auto) 0.9 Eos # (Auto) 0.0 Baso # (Auto) 0.0 Immature Gran # (Auto) 0.2 Sodium 130.0 L Potassium 2.93 L Chloride 94.4 L Carbon Dioxide 27.8 Anion Gap 10.73 BUN 27.8 H Creatinine 0.87 Estimated GFR (MDRD) 84.00 BUN/Creatinine Ratio 31.95 Glucose 163.4 H Calcium 8.30 L Total Bilirubin 2.06 H AST 51.1 ALT 82.4 H Alkaline Phosphatase 114.5 Lactate Dehydrogenase 331 H C-Reactive Prot, Quant 123 H Total Protein 7.59 Albumin 3.59 Globulin 4.00 Albumin/Globulin Ratio 0.89 Procalcitonin 0.36 H Additional Comments Additional Comments: I have independently reviewed and interpreted the labs/EKGs/imaging ordered during this hospital stay. I have reviewed outside records that are available in our EMR that pertain to medical stay including imaging/notes/labs from previous visits. Active Medications Active Medications: Medications Generic Name Dose Route Start Last Admin Trade Name Freq PRN Reason Stop Dose Admin Acetaminophen 650 mg 03/20/23 15:23 03/22/23 09:57 Acetaminophen 325 Mg Tablet PO 650 mg Q4H PRN Administration Mild Pain Albuterol Sulfate 2.5 mg 03/20/23 15:26 Albuterol Sulfate 0.083% Vial.Neb NEB RTQ4H PRN Wheezing Albuterol/Ipratropium 3 ml 03/20/23 18:00 03/23/23 06:32 Ipratropium/Albuterol Vial.Neb NEB 3 ml RTQ4H [place] Administration Atenolol 50 mg 03/21/23 09:00 03/23/23 09:00 Atenolol 50 Mg Tablet PO 50 mg DAILY [place] Administration Dexamethasone Sodium Phosphate 6 mg 03/21/23 09:00 03/23/23 09:02 Dexamethasone Sod Phos 10 Mg/Ml Inj IVP 6 mg DAILY [place] Administration Empagliflozin 25 mg 03/22/23 09:00 03/23/23 09:01 Empagliflozin 10 Mg Tablet PO 25 mg DAILY [place] Administration Fish Oil 1,000 mg 03/20/23 21:00 03/23/23 09:00 [place]-3/Dha/Epa/Fish Oil 1,000 Mg Capsule PO 1,000 mg BID [place] Administration Furosemide 40 mg 03/23/23 09:00 03/23/23 09:08 Furosemide Inj 40 Mg/4 Ml Vial IVP Not Given BID [place] Azithromycin 500 mg/ Sodium 250 mls @ 250 mls/hr 03/22/23 09:00 03/23/23 09:03 Chloride IV 03/25/23 08:59 250 mls/hr DAILY [place] Administration CEFTRIAXONE/D5W 1 GM PREMIX 1 gm in 50 mls @ 100 mls/hr 03/22/23 09:00 03/23/23 09:03 Rocephin 1 Gm/50 Ml D5w IV 03/25/23 08:59 100 mls/hr DAILY [place] Administration Sodium Chloride 500 mls @ 30 mls/hr 03/23/23 08:30 Sodium Chloride 3% IV .[id number] [place] Potassium Chloride 40 meq in 200 mls @ 50 mls/hr 03/23/23 08:06 Potassium Chloride 20 Meq/100 Ml Premix IV 03/23/23 12:05 ONCE ONE Insulin Human Regular 0 unit 03/20/23 15:45 03/22/23 21:00 Insulin Regular, Human 100 Unit/Ml (3ml) Vial SUBCUT 4 unit PRN PRN Administration Hyperglycemia Protocol Non-Formulary Medication 150 mg 03/22/23 09:00 03/23/23 09:21 Dabigatran Etexilate [Pradaxa] PO 150 mg BID [place] Administration Sacubitril/Valsartan 1 each 03/21/23 21:00 03/23/23 08:59 Sacubitril/Valsartan 1 Each Tablet PO 1 each BID [place] Administration Sodium Chloride 1 syr 03/21/23 21:00 03/23/23 05:43 0.9% Sodium Chloride 10 Ml Disp.Syrin IVF 1 syr Q8HR [place] Administration Spironolactone 25 mg 03/22/23 09:00 03/23/23 09:00 Spironolactone 25 Mg Tablet PO 25 mg DAILY [place] Administration Plan Plan: 1. Acute Hypoxic Respiratory Failure in setting of Covid-19 Pneumonia and CHF exacerbation - Improving, requiring 2-3L, wean oxygen as tolerated, nebs, steroids, lasix 40mg BID 2. Covid-19 Pneumonia - Improving, azith and rocephin, nebs, steroids 3. Acute Diastolic HFpEF exacerbation - Improving, echo showing EF of 37%, started on entreso and spironolactone, lasix 40 BID IVP, I&O, weigh daily, 1800 fluid restriction, diuresed well, will start lasix PO tomorrow 4. Acute Transaminitis - Improving, likely due to #1, ultrasound negative for acute findings, monitor 5. Covid-19 - out of window for viral therapy, steroids, nebs, oxygen, Ferritin normal. CRP & LDH elevated 6. UTI - urine culture showing contaminate. Denies urinary symptoms. Stopping rocephin. 7. Leukocytosis - in setting of above and steroids, monitor 8. Hyponatremia - secondary to lasix, replace with 3% and salt tabs QID 9. Hypokalemia - secondary to lasix, replace and monitor 10. A Fib - chronic, not in RVR, continue home medications 11. Hypertension - chronic, continue home medications 12. DM, Type 2 - ADA diet, hold oral agents, accuchecks ACHS with SSI 13. Weakness/Debility - PT/OT DVT Prophylaxis: Lovenox Review Statement Review Statement: I have personally discussed and reviewed the patient's visit/currently labs/imaging/decision making with Dr. Delarosa, my supervising attending. Greater that 50 minutes spent with patient, 50% of the time spent with this patient was devoted to counseling and coordination of care.
[2023-03-23] MEDS: SODIUM CHLORIDE 3% 500 ML IV SCH (11:23)
[2023-03-23] MEDS: HUMULIN R SUBCUT PRN ×3 (11:48→20:31)
[2023-03-23 19:37] LABS: BLOOD UREA NITROGEN 34.4 mg/dL (9-20); CALCIUM 8.37 mg/dL (8.4-10.2); CARBON DIOXIDE 27.2 mmol/L (22-30.0); CHLORIDE 99.5 mmol/L (98-107); CREATININE 1.01 mg/dL (0.60-1.10); GLUCOSE 336.5 mg/dL (74-106); POTASSIUM 4.29 mmol/L (3.5-5.1); SODIUM 132.9 mmol/L (134.5-145)
[2023-03-23] MEDS: ATIVAN PO PRN (20:28)
[2023-03-24] MEDS: DUONEB NEB SCH ×6 (02:52→21:28)
[2023-03-24] MEDS: SODIUM CHLORIDE 3% 500 ML IV SCH (04:58)
[2023-03-24 06:10] LABS: BASOPHILS % (AUTO) 0.1 % (0.0-3.0); HEMATOCRIT 36.7 % (42.0-52.0); HEMOGLOBIN 12.3 g/dl (14.0-18.0); IMMATURE GRANULOCYTE # (AUTO) 0.1 (0.0-1.0); IMMATURE GRANULOCYTE % (AUTO) 0.8 % (0.0-5.0); LYMPHOCYTES # (AUTO) 0.7 K/uL (0.60-3.4); LYMPHOCYTES % (AUTO) 3.9 (10.0-50.0); MEAN CORPUSCULAR HEMOGLOBIN 29.7 pg (27.0-31.0); MEAN CORPUSCULAR HGB CONC 33.5 (31.8-35.4); MEAN CORPUSCULAR VOLUME 88.6 fl (80.0-94.0); MONOCYTES # (AUTO) 0.9 K/uL (0.4-2.0); MONOCYTES % (AUTO) 5.3 (0-10); NEUTROPHILS # (AUTO) 15.1 K/ul (2.0-6.9); NEUTROPHILS % (AUTO) 89.9 % (42.2-75.2); PLATELET COUNT 297 10^3/uL (140-440); RDW COEFFICIENT OF VARIATION 14.8 % (11.6-14.8); RED BLOOD COUNT 4.14 10^6/ul (4.70-6.10); WHITE BLOOD COUNT 16.83 K/ul (4.2-10.2)
[2023-03-24 06:20] LABS: ALANINE AMINOTRANSFERASE 73.5 U/L (0-50); ALBUMIN 3.28 g/dL (3.5-5.0); ALKALINE PHOSPHATASE 99.6 U/L (56-119); ASPARTATE AMINO TRANSFERASE 57.6 U/L (17-59); BILIRUBIN,TOTAL 1.51 mg/dL (0.2-1.3); BLOOD UREA NITROGEN 34.3 mg/dL (9-20); CALCIUM 8.23 mg/dL (8.4-10.2); CARBON DIOXIDE 25.1 mmol/L (22-30.0); CHLORIDE 104.4 mmol/L (98-107); CREATININE 0.77 mg/dL (0.60-1.10); GLUCOSE 175.2 mg/dL (74-106); POTASSIUM 3.79 mmol/L (3.5-5.1); SODIUM 137.2 mmol/L (134.5-145); TOTAL PROTEIN 7.34 g/dL (6.3-8.2)
[2023-03-24] MEDS: DECADRON IVP SCH (08:00)
[2023-03-24] MEDS: OMEGA-3 FISH OIL PO SCH ×2 (08:01→20:06)
[2023-03-24] MEDS: JARDIANCE PO SCH (08:01)
[2023-03-24] MEDS: ROCEPHIN 1 GM/50 ML D5W 1 GM/50 ML BAG IV SCH (08:01)
[2023-03-24] MEDS: ENTRESTO 24 MG-26 MG TABLET PO SCH ×2 (08:02→20:06)
[2023-03-24] MEDS: LASIX TAB PO SCH (08:02)
[2023-03-24] MEDS: TENORMIN PO SCH (08:02)
[2023-03-24] MEDS: ALDACTONE PO SCH (08:02)
--- NOTE | 2023-03-24 09:31 | PCM.PROG ---
Date/Time Seen Date Seen by Provider: 03/24/23 Time Seen by Provider: 09:00 Provider Provider: WALT ZIMMERMAN, [facility] Chief Complaint Chief Complaint: COVID+; PULMONARY ADEMA Subjective Subjective: Feeling much better today. Slept well last night. States he does not feel as weak when ambulating. States he is still having coughing spells after taking a deep breath. Objective Appearance: Positive No Apparent Distress and Alert and Oriented x3 Chest/Lungs: Positive Symmetrical With Equal Breath Sounds, Rhonci and Good Air Movement all 4 Lung Chambers Heart: Positive RRR and Pulses Normal GI/: Positive Soft, Nontender, Bowel Sounds Normal and No Distention Musculoskeletal: Positive Not Examined Neurological: Positive Sensation Intact, Motor intact, Reflexes Intact, Alert, Oriented and Muscle Strength 5/5 in Upper and Lower Extremities Bilaterally Vital Signs Vital Signs: Vital Signs: Last 24 Hours 03/23/23 10:00 03/23/23 10:00 03/23/23 13:00 Temperature 97.8 F Temperature Source Temporal Artery Scan Pulse Rate 79 Respiratory Rate 17 Blood Pressure 105/69 Blood Pressure Mean 81 Blood Pressure Location Left Arm Blood Pressure Position O2 Sat by Pulse Oximetry 91 L 93 L Oxygen Delivery Method Nasal Cannula Nasal Cannula Oxygen Flow Rate 3 3 Weight Telemetry Type Bedside Monitor Telemetry Monitoring Continues Telemetry Heart Rate 70 Telemetry SPO2 91 L EKG QRS Interval 0.11 H Telemetry Strip Reading paced with BBB 03/23/23 14:00 03/23/23 14:00 03/23/23 18:00 Temperature 97.6 F 97.6 F Temperature Source Temporal Artery Scan Temporal Artery Scan Pulse Rate 70 70 Respiratory Rate 22 H 17 Blood Pressure 126/72 107/88 Blood Pressure Mean 90 94 Blood Pressure Location Left Arm Left Arm Blood Pressure Position Sitting O2 Sat by Pulse Oximetry 96 93 L 93 L Oxygen Delivery Method Nasal Cannula Nasal Cannula Room Air Oxygen Flow Rate 3 3 Weight Telemetry Type Telemetry Monitoring Telemetry Heart Rate Telemetry SPO2 EKG QRS Interval Telemetry Strip Reading 03/23/23 19:00 03/23/23 19:47 03/23/23 20:00 Temperature Temperature Source Pulse Rate Respiratory Rate Blood Pressure Blood Pressure Mean Blood Pressure Location Blood Pressure Position O2 Sat by Pulse Oximetry 92 L Oxygen Delivery Method Nasal Cannula Nasal Cannula Oxygen Flow Rate 3 3 Weight Telemetry Type Bedside Monitor Telemetry Monitoring Continues Telemetry Heart Rate 70 Telemetry SPO2 91 L EKG QRS Interval 0.08 Telemetry Strip Reading PACED 03/23/23 22:00 03/24/23 01:00 03/24/23 02:00 Temperature 98.6 F 98.7 F Temperature Source Temporal Artery Scan Temporal Artery Scan Pulse Rate 73 70 Respiratory Rate 24 H 19 Blood Pressure 107/88 107/88 Blood Pressure Mean 94 94 Blood Pressure Location Left Arm Left Arm Blood Pressure Position Supine Supine O2 Sat by Pulse Oximetry 88 L 94 L Oxygen Delivery Method Room Air Room Air Oxygen Flow Rate Weight Telemetry Type Bedside Monitor Telemetry Monitoring Continues Telemetry Heart Rate 70 Telemetry SPO2 92 L EKG QRS Interval 0.08 Telemetry Strip Reading paced 03/24/23 04:45 03/24/23 04:48 03/24/23 05:47 Temperature 97.6 F Temperature Source Oral Pulse Rate 70 Respiratory Rate 23 H Blood Pressure 123/67 Blood Pressure Mean 85 Blood Pressure Location Right Arm Blood Pressure Position O2 Sat by Pulse Oximetry 89 L 90 L Oxygen Delivery Method Nasal Cannula Nasal Cannula Oxygen Flow Rate 4 3 Weight 145 lb 2 oz Telemetry Type Telemetry Monitoring Telemetry Heart Rate Telemetry SPO2 EKG QRS Interval Telemetry Strip Reading 03/24/23 07:00 Temperature Temperature Source Pulse Rate Respiratory Rate Blood Pressure Blood Pressure Mean Blood Pressure Location Blood Pressure Position O2 Sat by Pulse Oximetry Oxygen Delivery Method Oxygen Flow Rate Weight Telemetry Type Remote Telemetry Telemetry Monitoring Continues Telemetry Heart Rate 72 Telemetry SPO2 94 EKG QRS Interval 0.12 H Telemetry Strip Reading paced with BBB Lab Results Lab Results: Lab Results: Last 24 Hours 03/24/23 03/23/23 05:54 19:10 WBC 16.83 H RBC 4.14 L Hgb 12.3 L Hct 36.7 L MCV 88.6 MCH 29.7 MCHC 33.5 RDW Coeff of Adria 14.8 Plt Count 297 Immature Gran % (Auto) 0.8 Neut % (Auto) 89.9 H Lymph % (Auto) 3.9 L [place] % (Auto) 5.3 Eos % (Auto) 0.0 Baso % (Auto) 0.1 Neut # (Auto) 15.1 H Lymph # (Auto) 0.7 [place] # (Auto) 0.9 Eos # (Auto) 0.0 Baso # (Auto) 0.0 Immature Gran # (Auto) 0.1 Sodium 137.2 132.9 L Potassium 3.79 4.29 Chloride 104.4 99.5 Carbon Dioxide 25.1 27.2 Anion Gap 11.49 10.49 BUN 34.3 H 34.4 H Creatinine 0.77 1.01 Estimated GFR (MDRD) 96.00 70.00 BUN/Creatinine Ratio 44.54 34.05 Glucose 175.2 H D 336.5 H D Calcium 8.23 L 8.37 L Total Bilirubin 1.51 H AST 57.6 ALT 73.5 H Alkaline Phosphatase 99.6 Total Protein 7.34 Albumin 3.28 L Globulin 4.06 Albumin/Globulin Ratio 0.80 Procalcitonin 0.20 H Additional Comments Additional Comments: I have independently reviewed and interpreted the labs/EKGs/imaging ordered during this hospital stay. I have reviewed outside records that are available in our EMR that pertain to medical stay including imaging/notes/labs from previous visits. Active Medications Active Medications: Medications Generic Name Dose Route Start Last Admin Trade Name Freq PRN Reason Stop Dose Admin Acetaminophen 650 mg 03/20/23 15:23 03/22/23 09:57 Acetaminophen 325 Mg Tablet PO 650 mg Q4H PRN Administration Mild Pain Albuterol Sulfate 2.5 mg 03/20/23 15:26 Albuterol Sulfate 0.083% Vial.Neb NEB RTQ4H PRN Wheezing Albuterol/Ipratropium 3 ml 03/20/23 18:00 03/24/23 05:48 Ipratropium/Albuterol Vial.Neb NEB 3 ml RTQ4H [place] Administration Atenolol 50 mg 03/21/23 09:00 03/24/23 08:02 Atenolol 50 Mg Tablet PO 50 mg DAILY [place] Administration Dexamethasone Sodium Phosphate 6 mg 03/21/23 09:00 03/24/23 08:00 Dexamethasone Sod Phos 10 Mg/Ml Inj IVP 6 mg DAILY [place] Administration Empagliflozin 25 mg 03/22/23 09:00 03/24/23 08:01 Empagliflozin 10 Mg Tablet PO 25 mg DAILY [place] Administration Fish Oil 1,000 mg 03/20/23 21:00 03/24/23 08:01 [place]-3/Dha/Epa/Fish Oil 1,000 Mg Capsule PO 1,000 mg BID [place] Administration Furosemide 20 mg 03/24/23 07:00 03/24/23 08:02 Furosemide 20 Mg Tablet PO 20 mg QDAC2 [place] Administration Azithromycin 500 mg/ Sodium 250 mls @ 250 mls/hr 03/22/23 09:00 03/23/23 09:03 Chloride IV 03/25/23 08:59 250 mls/hr DAILY [place] Administration CEFTRIAXONE/D5W 1 GM PREMIX 1 gm in 50 mls @ 100 mls/hr 03/22/23 09:00 03/24/23 08:01 Rocephin 1 Gm/50 Ml D5w IV 03/25/23 08:59 100 mls/hr DAILY [place] Administration Insulin Human Regular 0 unit 03/20/23 15:45 03/23/23 20:31 Insulin Regular, Human 100 Unit/Ml (3ml) Vial SUBCUT 8 unit PRN PRN Administration Hyperglycemia Protocol Lorazepam 0.5 mg 03/23/23 19:56 03/23/23 20:28 Lorazepam 0.5 Mg Tablet PO 0.5 mg BEDTIME PRN Administration Anxiety Non-Formulary Medication 150 mg 03/22/23 09:00 03/24/23 08:00 Dabigatran Etexilate [Pradaxa] PO 150 mg BID [place] Administration Sacubitril/Valsartan 1 each 03/21/23 21:00 03/24/23 08:02 Sacubitril/Valsartan 1 Each Tablet PO 1 each BID [place] Administration Sodium Chloride 1 syr 03/21/23 21:00 03/24/23 05:59 0.9% Sodium Chloride 10 Ml Disp.Syrin IVF 1 syr Q8HR [place] Administration Spironolactone 25 mg 03/22/23 09:00 03/24/23 08:02 Spironolactone 25 Mg Tablet PO 25 mg DAILY [place] Administration Plan Plan: 1. Acute Hypoxic Respiratory Failure in setting of Covid-19 Pneumonia and CHF exacerbation - Improving, requiring 2-3L, wean oxygen as tolerated, nebs, steroids, lasix decreased to 40 mg PO daily 2. Covid-19 Pneumonia - Improving, azith and rocephin, nebs, steroids 3. Acute Diastolic HFpEF exacerbation - Resolved, echo showing EF of 37%, started on entreso and spironolactone, I&O, weigh daily, 1800 fluid restriction, diuresed well, PO lasix started today 4. Acute Transaminitis - Improving, likely due to #1, ultrasound negative for acute findings, monitor 5. Covid-19 - out of window for viral therapy, steroids, nebs, oxygen, Ferritin normal. CRP & LDH elevated 6. UTI - urine culture showing contaminate. Denies urinary symptoms. Stopping rocephin. 7. Leukocytosis - in setting of above and steroids, monitor 8. Hyponatremia - Resolved 9. Hypokalemia - Resolved 10. A Fib - chronic, not in RVR, continue home medications 11. Hypertension - chronic, continue home medications 12. DM, Type 2 - ADA diet, hold oral agents, accuchecks ACHS with SSI 13. Weakness/Debility - PT/OT DVT Prophylaxis: Lovenox Plan to D/C with home oxygen tomorrow. Patient states that when he has had covid previously, he has had to go home with oxygen. Unable to do today due to holiday weekend. Will pass on to case management and social work tomorrow to complete. Review Statement Review Statement: I have personally discussed and reviewed the patient's visit/currently labs/imaging/decision making with Dr. Delarosa, my supervising attending. Greater that 50 minutes spent with patient, 50% of the time spent with this patient was devoted to counseling and coordination of care.
[2023-03-24] MEDS: ZITHROMAX 500 MG in SODIUM CHLORIDE 250 ML IV SCH (09:40)
[2023-03-24] MEDS: HUMULIN R SUBCUT PRN ×3 (11:40→20:06)
--- NOTE | 2023-03-24 13:12 | ECHO2D ---
Date of Exam: 03/21/2023 Ordering Physician: DR. DEBRA DYER Room #SCU2 Reason for Echo: SOB, PULMONARY EDEMA M-Mode Normal Adult Results LV Dimensions Normal Adult Results AoV Opening excursions >1.6 >1.6 LVEDD-base- 3.5-5.8 5.6 Ao root dimensions 2.0-3.7 4.0 LVESD-base- 3.1-4.6 L. Atrium dimensions 1.9-3.8 5.1 Post. Wall thickness 0.8-1.1 1.1 IV septum (thickness) 0.7-1.2 1.2 Post. Wall excursion 0.72-1.3 0.9 Septal motion 0.7 Systolic motion R. Ventricular cavity 1.5-2.0 NORMAL LVEF 60% 37% Paradoxical septal wall motion NORMAL 2-D : 2-D M Mode Echo--HYPOKINETIC LEFT VENTRICLE, VALVES --NORMAL, NO EFFUSION, NO THROMBUS, ENLARGED RIGHT ATRIAL AND LEFT ATRIAL CAVITIES M-MODE: MV: NORMAL AV: NORMAL TV: NORMAL PV: CHAMBER SIZE: ENLARGED LEFT ATRIAL AND RIGHT ATRIAL CAVITIES WALL MOTION: HYPOKINETIC LEFT VENTRICLE PERICARDIUM: NORMAL INTERPRETATION: 1. BORDERLINE LEFT VENTRICLE HYPERTROPHY 2. ENLARGED RIGHT ATRIAL AND LEFT ATRIAL CAVITIES 3. HYPOKINETIC LEFT VENTRICLE WITH EJECTION FRACTION 37% (PREVIOUS ECHO 05/21--EF>60%) MTDD
[2023-03-24] MEDS: ATIVAN PO PRN (20:06)
[2023-03-25] MEDS: DUONEB NEB SCH ×4 (01:37→14:34)
[2023-03-25] MEDS: LASIX TAB PO SCH (05:42)
[2023-03-25 06:30] LABS: BASOPHILS % (AUTO) 0.1 % (0.0-3.0); HEMATOCRIT 35.9 % (42.0-52.0); IMMATURE GRANULOCYTE # (AUTO) 0.1 (0.0-1.0); IMMATURE GRANULOCYTE % (AUTO) 0.5 % (0.0-5.0); LYMPHOCYTES # (AUTO) 0.7 K/uL (0.60-3.4); LYMPHOCYTES % (AUTO) 4.6 (10.0-50.0); MEAN CORPUSCULAR HEMOGLOBIN 29.9 pg (27.0-31.0); MEAN CORPUSCULAR HGB CONC 33.4 (31.8-35.4); MEAN CORPUSCULAR VOLUME 89.5 fl (80.0-94.0); MONOCYTES # (AUTO) 0.9 K/uL (0.4-2.0); MONOCYTES % (AUTO) 5.8 (0-10); NEUTROPHILS # (AUTO) 13.5 K/ul (2.0-6.9); PLATELET COUNT 311 10^3/uL (140-440); RDW COEFFICIENT OF VARIATION 14.8 % (11.6-14.8); RED BLOOD COUNT 4.01 10^6/ul (4.70-6.10); WHITE BLOOD COUNT 15.12 K/ul (4.2-10.2)
[2023-03-25 06:42] LABS: ALANINE AMINOTRANSFERASE 71.8 U/L (0-50); ALBUMIN 3.01 g/dL (3.5-5.0); ALKALINE PHOSPHATASE 110.6 U/L (56-119); ASPARTATE AMINO TRANSFERASE 46.2 U/L (17-59); BILIRUBIN,TOTAL 1.36 mg/dL (0.2-1.3); BLOOD UREA NITROGEN 38.5 mg/dL (9-20); CALCIUM 8.43 mg/dL (8.4-10.2); CARBON DIOXIDE 26.5 mmol/L (22-30.0); CHLORIDE 106.7 mmol/L (98-107); CREATININE 0.74 mg/dL (0.60-1.10); GLUCOSE 194.2 mg/dL (74-106); POTASSIUM 4.31 mmol/L (3.5-5.1); TOTAL PROTEIN 7.06 g/dL (6.3-8.2)
[2023-03-25] MEDS: ENTRESTO 24 MG-26 MG TABLET PO SCH (08:44)
[2023-03-25] MEDS: ALDACTONE PO SCH (08:44)
[2023-03-25] MEDS: JARDIANCE PO SCH (08:44)
[2023-03-25] MEDS: DECADRON IVP SCH (08:44)
[2023-03-25] MEDS: TENORMIN PO SCH (08:45)
[2023-03-25] MEDS: OMEGA-3 FISH OIL PO SCH (08:45)
[2023-03-25] MEDS: HUMULIN R SUBCUT PRN (11:42)
--- NOTE | 2023-03-25 13:01 | DCSUM ---
Admission Date Admission Date: 03/20/23 Discharge Date Discharge Date: 03/25/23 Admission Diagnosis Admission Diagnosis: 1. Covid 19 2. Acute diastolic hfpef exacerbation 3. Acute transaminitis Discharge Diagnosis Discharge Diagnosis: 1. Acute Hypoxic Respiratory Failure in setting of Covid-19 Pneumonia and CHF exacerbation - Improving 2. Covid-19 Pneumonia - Improving 3. Acute systolic heart failure exacerbation - Resolved 4. Acute Transaminitis - Improving 5. Covid-19 6. UTI - ruled out 7. Leukocytosis - in setting of above and steroids 8. Hyponatremia - Resolved 9. Hypokalemia - Resolved 10. A Fib - chronic, stable 11. Hypertension - chronic, stable 12. DM, Type 2 - chronic, stable Hospital Provider Hospital Provider: AJAY NJ PA-C, [facility] Primary Care Physician Primary Care Physician: DEBRA DYER MD Summary of History and Physical Summary of History and Physical: 83 yo male presented to the ER with complaints of shortness of breath. Patient reports that he began having covid symptoms of SOB, cough, fever, and weakness 4 days ago. Took a home test that was positive. Has not reached out to his PCP for any outpatient treatment. Has pmh of diastolic HFpEF that he takes lasix prn for. Has not taken the lasix in several days due to "not needing it". Patient was found to have BNP >4000, UTI, elevated liver enzymes and bilirubin. Patient reports he has had elevated liver enzymes in the past but is unsure why. Does not take any cholesterol medications due to joint pain previously. Denies any alcohol use. He was given a dose of lasix, steroids, and rocephin in the ER. US of abdomen was ordered as well. Hospital Course Subjective: Patient became hypoxic and required O2. He was treated with dexamethasone, nebs, and oxygen. He was also diuresed with lasix. Echo showed a decreased EF of 37%. He was started on systolic heart failure medication regimen including entresto, spironolactone, jardiance, and he is already on atenolol. He did well with this. He was also started on daily lasix instead of prn at home. His liver enzymes improved. Likely covid related. US showed nothing acute. Leukocytosis improving, likely due to steroid use. Pt still requiring O2 despite treatment. He has required O2 following covid in the past. Will set up home O2. Will discharge on lasix, daily potassium, spironolactone, jardiance, entresto, albuterol inhaler. He completed abx regimen for pneumonia, likely viral from covid anyhow. Home health for therapy set up upon discharge. PCP Dr. Frederic Dyer included in discharge planning. Jardiance and entresto sent to [place] pharmacy due to cost. Patient would benefit from home health referral for therapy. Appearance: Pleasant, No Apparent Distress and Alert HEENT: MMM and Supple CVS: No Murmur Abdomen: Soft, Non-Tender and No Distention Respiratory: No Accessory Muscle Use Extremities: No Edema Vital Signs: Most Recent Vital Signs Temperature 97.6 F 03/25/23 09:51 Temperature Source Tympanic 03/25/23 09:51 Temperature Source Oral 03/20/23 11:27 Pulse Rate 72 03/25/23 09:51 Respiratory Rate 23 H 03/25/23 09:51 Blood Pressure 111/58 L 03/25/23 09:51 Blood Pressure Mean 75 03/25/23 09:51 Blood Pressure Left Arm 156/79 03/20/23 15:46 Blood Pressure Location Right Arm 03/25/23 09:51 Blood Pressure Position Sitting 03/25/23 09:51 O2 Sat by Pulse Oximetry 93 L 03/25/23 09:51 Oxygen Delivery Method Nasal Cannula 03/25/23 09:51 Oxygen Flow Rate 3 03/25/23 09:51 Height 5 ft 8 in 03/20/23 15:46 Weight 142 lb 5 oz 03/25/23 06:00 Telemetry Type Bedside Monitor 03/25/23 07:00 Telemetry Monitoring Continues 03/25/23 07:00 Telemetry Heart Rate 71 03/25/23 07:00 Telemetry SPO2 92 L 03/25/23 07:00 EKG QRS Interval 0.09 03/25/23 07:00 Telemetry Strip Reading V paced 03/25/23 07:00 Imaging: EXAM: CHEST ONE VIEW, FRONTAL VIEW ONLY. HISTORY: Cough, dyspnea. COMPARISON: 06/11/2022. FINDINGS: Left-sided pacemaker noted. Heart size normal. Atherosclerotic calcifications present. There is no vascular congestion. Calcified granulomatous changes noted. Left greater than right bronchial thickening and reticulonodular opacities present, similar to prior, greater in the bases. No new opacity. No large pleural effusion or pneumothorax detected. No acute osseous abnormality is seen. IMPRESSION: Stable chronic airways inflammation, greatest at the left base. EXAM: CHEST CTA WITH CONTRAST (PULMONARY ARTERY) HISTORY: Acute dyspnea. COVID-19. Elevated D-dimer. TECHNIQUE: CTA acquisition of the chest from the thoracic inlet to the upper abdomen following IV contrast administration timed to filling of the pulmonary artery. IV Contrast: 100 mL of Omnipaque 350. 3D/MIP/VR images were utilized. CT Dose Reduction Techniques Employed: Yes. COMPARISON: 06/06/2022 FINDINGS: Pulmonary Embolism: - Diagnostic quality: Adequate. - Pulmonary Arteries: No evidence of thromboembolic disease. - Right ventricle/Left ventricle ratio: Normal. Lung Parenchyma and Airways: No suspicious mass or consolidation. Scattered bilateral ground-glass opacification is identified. Mild bilateral dependent atelectasis is noted. Pleural Space: Small layering pleural effusions are noted. No pneumothorax. Mediastinum: Cardiomegaly is noted. No pericardial effusion. The great vessels are normal. No significant aortic aneurysm. No enlarged lymph nodes. Bones and Soft Tissues: There is no fracture or lytic lesion. Chest wall soft tissues are unremarkable. Upper Abdomen: The scattered bilateral intrarenal calcifications are identified. IMPRESSION: 1. No evidence of pulmonary artery thromboembolic disease. 2. Cardiogenic pulmonary edema is noted. EXAM: CHEST ONE VIEW, FRONTAL VIEW ONLY. HISTORY: Shortness of breath. COMPARISON: 03/20/2023. FINDINGS: Left-sided pacemaker noted. Heart is enlarged. Atherosclerotic calcifications present. Calcified lymph nodes in the again noted. Perihilar right lung consolidation and left mid to lower lung consolidation appears slightly increased. No pneumothorax identified. No acute osseous abnormality is seen. Clips present in the upper abdomen. Old lower left lateral rib fractures. IMPRESSION: Mild worsening of bilateral consolidation which could represent pneumonia. EXAM: ULTRASOUND ABDOMINAL COMPLETE HISTORY: Elevated liver enzymes. Previous cholecystectomy. TECHNIQUE: Sonography of the abdomen was performed. Images were obtained and stored in a permanent archive. Color Doppler images of the main portal vein were obtained. COMPARISON: CT of the abdomen and pelvis 10/03/2020. FINDINGS: Pancreas: Normal sonographic appearance of the head and body. Tail is partially obscured. Pancreatic duct at the upper limits of normal. Liver: Normal echogenicity. No lesions. - Normal antegrade flow within the main portal vein. Biliary: No intrahepatic duct dilation. Common bile duct measures 9.7 mm. Previous cholecystectomy. Spleen: Obscured by overlying structures. Right Kidney: No hydronephrosis. Simple cyst measuring 4.0 cm. Additional smaller cyst measuring 1.3 cm with thickened septation. Likely present measuring [address] No calculus. Left Kidney: No hydronephrosis. Simple cyst measuring 8.2 cm. Additional simple cyst measuring 9 mm. No calculus. Bladder: Partially distended. Mild generalized wall thickening. IVC: No abnormality on mock scale image. Patent on color Doppler. Aorta: No aneurysmal dilatation in the visualized mid portion. Patent on color Doppler. Other: No ascites. Small right pleural effusion partially visualized. IMPRESSION: Previous cholecystectomy. The common bile duct is partially visualized and at the upper limits of normal in size post cholecystectomy measuring 9.7 cm. Distal pancreas obscured with the pancreatic duct borderline in diameter at the level of the distal pancreas. Consider cross-sectional imaging with contrast for further evaluation of the above findings. Portions of the aorta as well as the spleen are obscured by overlying structures and bowel gas. No significant hepatic abnormality. Simple appearing bilateral renal cysts measuring up to 8.2 cm on the left and 4.0 cm on the right. An additional small mildly complex cyst is present in the right kidney measuring 1.30 cm with minimally thickened septation. Small right pleural effusion. Partially distended bladder with mild generalized wall thickening. This could be due to partial distension, chronic outlet obstruction, or cystitis. Lab Results Last 24 Hours: 03/25/23 06:25 WBC 15.12 H RBC 4.01 L Hgb 12.0 L Hct 35.9 L MCV 89.5 MCH 29.9 MCHC 33.4 RDW Coeff of Adria 14.8 Plt Count 311 Immature Gran % (Auto) 0.5 Neut % (Auto) 89.0 H Lymph % (Auto) 4.6 L [place] % (Auto) 5.8 Eos % (Auto) 0.0 Baso % (Auto) 0.1 Neut # (Auto) 13.5 H Lymph # (Auto) 0.7 [place] # (Auto) 0.9 Eos # (Auto) 0.0 Baso # (Auto) 0.0 Immature Gran # (Auto) 0.1 Sodium 136.0 Potassium 4.31 Chloride 106.7 Carbon Dioxide 26.5 Anion Gap 7.11 BUN 38.5 H Creatinine 0.74 Estimated GFR (MDRD) 101.00 BUN/Creatinine Ratio 52.02 Glucose 194.2 H Calcium 8.43 Total Bilirubin 1.36 H AST 46.2 ALT 71.8 H Alkaline Phosphatase 110.6 Total Protein 7.06 Albumin 3.01 L Globulin 4.05 Albumin/Globulin Ratio 0.74 Discharge Instructions Discharge Planning: Discharge Planning > 40 minutes If patient is discharged with left ventricular systolic dysfunction: Discharged with a beta oneil? Y If no, why not? Discharged with an marj/arb? Y If no, why not? Discussed with Dr. Boone Dyer. Discharge Medications: Medications at Discharge (Home Meds & RX) omega-3 fatty acids-fish oil 300 mg-1,000 mg capsule (Fish Oil) 1,000 ea PO BID 03/06/16 atenolol 50 mg tablet 50 mg PO DAILY 10/01/16 metformin 500 mg tablet 500 mg PO BIDWMEAL #60 tabs 09/03/22 prednisone 1 mg tablet 1 mg PO BID 09/03/22 dabigatran etexilate 150 mg capsule (Pradaxa) 150 mg PO BID #60 caps 03/08/23 dexamethasone 6 mg tablet 6 mg PO DAILY 4 days #4 tabs 03/25/23 empagliflozin 10 mg tablet (Jardiance) 10 mg PO DAILY #30 tabs 03/25/23 furosemide 20 mg tablet (Lasix) 20 mg PO DAILY #30 tabs 03/25/23 potassium chloride 10 mEq tablet,extended release (K-Tab) 10 meq PO QDAY Take with lasix #30 tabs 03/25/23 sacubitril 24 mg-valsartan 26 mg tablet (Entresto) 1 tab PO BID #60 tabs 03/25/23 spironolactone 25 mg tablet 25 mg PO DAILY #30 tabs 03/25/23 Discharge Plan Discharge Discharge Orders: Discharge Patient (ONCE); Ordered 03/25/23 Ordered By: AJAY NJ Activity Restrictions/Additional Instructions: DISCHARGE TO HOME DX: COVID, FLUID OVERLOAD ACTIVITY: TOLERATED DIET: HEART HEALTHY F/U WITH DR. DYER OFFICE WITHIN 1 WEEK HOME O2 SET UP HOME HEALTH ORDERED [facility] HAS BEEN ESTABLISHED FOR HOME HEALTH PHYSICAL THERAPY. THEY WILL BE IN CONTACT WITH YOU TO INITIATE HOME HEALTH SERVICES. SHOULD YOU NEED TO CONTACT THEM, THEIR NUMBER IS [phone]. Instructions: COVID-19 (Coronavirus Disease 2019) (GEN) Care Plan Goals: Problem: Impaired Respiratory Status Goal: Exhibit optimal respiratory function Instructions: Activities as tolerated Apply oxygen as ordered Elevate head of bed Notify MD of increased congestion Patient Disposition: HOME SELF-CARE Prescriptions: New spironolactone 25 mg Tablet 25 mg PO DAILY Qty: 30 0RF Jardiance 10 mg tablet 10 mg PO DAILY Qty: 30 0RF dexamethasone 6 mg tablet 6 mg PO DAILY 4 Days Qty: 4 0RF Rx Instructions: starting 03/26 furosemide [Lasix] 20 mg tablet 20 mg PO DAILY Qty: 30 0RF albuterol sulfate 90 mcg/actuation HFA aerosol inhaler 2 puff inhalation Q4-6H PRN (Reason: shortness of breath or wheezing) Qty: 6.7 0RF Entresto 24-26 mg tablet 1 tab PO BID Qty: 60 0RF Jardiance 10 mg tablet 10 mg PO DAILY Qty: 30 0RF Continued dabigatran etexilate [Pradaxa] 150 mg capsule 150 mg PO BID Qty: 60 0RF omega-3 fatty acids-fish oil [Fish Oil] 1 EACH capsule 1,000 ea PO BID atenolol 50 MG tablet 50 mg PO DAILY potassium chloride [K-Tab] 10 mEq tablet extended release 10 meq PO QDAY Qty: 30 0RF prednisone 1 mg tablet 1 mg PO BID metformin 500 mg tablet 500 mg PO BIDWMEAL Qty: 60 2RF Discontinued losartan [Cozaar] 100 MG tablet 50 mg PO BID Qty: 60 0RF furosemide 20 mg tablet 20 mg PO QAM PRN (Reason: edema) Did you review [place] [employer] for ALL controlled substances?: Not Applicable Discussed opioids are addictive and Narcan is available by prescription or from pharmacy.: No Condition: Stable Referrals: DEBRA DYER MD [Primary Care Provider] - 03/28/23 9:20 am
[2023-03-25 13:59] VITALS: BP 115/65; PULSE 70; RESP 22
[2023-03-25 14:01] VITALS: TEMP 97.9
== END 2023-03-25 16:16 | disposition home or self-care (01) | DRG 177 ==
LOC: ED 11:07 → SCU 11:07
PROVIDERS: ADMIT Hospitalist; ATTEND Physician Assistant
DX: E87.6 Hypokalemia; I11.0 Hypertensive heart disease with heart failure; Z74.1 Need for assistance with personal care; E87.1 Hypo-osmolality and hyponatremia; I48.91 Unspecified atrial fibrillation; J96.91 Respiratory failure, unspecified with hypoxia; U07.1 COVID-19; N39.0 Urinary tract infection, site not specified; I50.33 Acute on chronic diastolic (congestive) heart failure; E11.65 Type 2 diabetes mellitus with hyperglycemia; D72.829 Elevated white blood cell count, unspecified; R74.01 Elevation of levels of liver transaminase levels; J81.0 Acute pulmonary edema; R53.1 Weakness; J12.82 Pneumonia due to coronavirus disease 2019

== ENCOUNTER 2025-02-27 22:36 | Inpatient (IN) ==
--- NOTE | 2025-02-27 23:17 | ED.PDOC ---
General HPI ED Provider: Dr. JONH ROY MD Chief Complaint: Weakness Stated Complaint: 84 yo WM complains of weakness for 2 days and difficulty walking. Family noticed fever tonight and took his oral temp with [employer] thermometer and reading was 104.5 to 105. Some chills, myalgia and arthralgia. Some headache but none now. No sore throat or runny nose. Maybe slight cough but no SOB. No abdominal or chest pain. No changes in his back pain. Some problem voiding, always dribbling, but some difficulty voiding. Chronic hematuria. Had bladder bx and urologist felt neg for bladder cancer. Remote history of prostate CA. Hx of chronic AFib, DM, asthma, ? CHF, pacer in 2008 and old records showed polymyalgia Reside with his and normally ambulatory. Never smoke. Time Seen by Provider: 02/27/25 22:39 Mode of Arrival: Wheelchair Information Source: Patient and Family Exam Limitations: No limitations Primary Care Provider: MALATHI SHORT APRN Referred to ED by: Other (Family and slef) Nursing and Triage Documentation Reviewed and Agree: Yes Opioid Naive vs. Tolerant Does Patient Take Opioids?: No What is Opioid Naive?: *Opioid Naive implies the patient is not already taking opioids or not chronically receiving opioids on a daily basis. *PRN dosing is not "usually" associated with tolerance. *Patients are at higher risk of over-sedation and aspiration. What is Opioid Tolerant?: *Opioid Tolerance implies less than the expected response to an opioid. *Acquired tolerance is defined by the patient taking 60mg of oral morphine daily (or equianalgesic dose of another opioid) for 1 week or more. *Often associated with chronic pain. *May take more than usual dose to achieve desired pain control. Review of Systems Review Of Systems Constitutional: Reports Chills, Fever, Malaise and Weakness Eyes: Reports No symptoms Ears, Nose, Mouth, Throat: Denies Ear pain, Nose discharge or Throat pain Respiratory: Reports Cough (maybe slight); Denies Shortness of Breath Cardiac: Denies Chest pain, Edema or Palpitations GI: Denies Abdominal pain, Diarrhea or Vomiting : Reports Hematuria, Urgency and Other (voiding difficulty, chronic hematuria) Musculoskeletal: Reports Joint pain and Muscle pain Skin: Reports No symptoms Neurological: Reports Headache; Denies Emotional problems or Cognitive dysfunction PFSH PFSH Medical History Dyslipidemia Fishoil E78.4 - OTHER HYPERLIPIDEMIA (ICD-10) COVID-19 virus antibody detected 09/2020 R76.8 - Other specified abnormal immunological findings in serum (ICD-10) Herpes zoster left thoracic B02.9 - Zoster without complications (ICD-10) Foot pain, bilateral L>R M79.671 - Pain in right foot (ICD-10) M79.672 - Pain in left foot (ICD-10) Melanoma left arm C43.9 - Malignant melanoma of skin, unspecified (ICD-10) History of COVID-19 Z86.16 - Personal history of COVID-19 (ICD-10) Recurrent UTI N39.0 - Urinary tract infection, site not specified (ICD-10) Family History FATHER Diabetes BROTHER Cancer Other No pertinent family history Social History Smoking and tobacco status: Never smoker Alcohol intake: never Substance use type: does not use Special fran needs: No Agree to transfusion: Yes Adopted: No Caregiver/support person: No Foster care: No Household members: spouse Housing: house Marital status: M Lives independently: Yes Daycare: no daycare Number of children: 3 service: Yes status: retired branch: [employer]DC: No History of recent travel: No Do you think of yourself as: straight/heterosexual Current gender identity: male Seatbelt use: always Helmet use: No Drives intoxicated or rides with intoxicated truck driver 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: No Water heater temperature set < 120 degrees: Yes Working smoke detector in home: Yes Fire extinguisher in home: Yes Carbon monoxide detector in home: Yes Surgical History S/P TURP Z90.79 - Acquired absence of other genital organ(s) (ICD-10) Physical Exam Physical Exam Appearance: Reports No pain distress and Well-nourished Ill-appearing: Mild Pain Distress: Mild Eyes: Reports EOMI ENT: Reports Nose normal and Oropharynx normal Neck: Nonsupple Respiratory: Reports Airway patent, Breath sounds clear and Respirations nonlabored; Denies Breath sounds diminished Cardiovascular: Reports Pulses normal, No rub and No murmur GI/: Reports Soft, Nontender, No masses, Bowel sounds normal and No Organomegaly; Denies Tender Musculoskeletal: Reports Normal strength, ROM intact, No edema and No calf tenderness Skin: Reports Warm, Dry and Normal color; Denies Pale or Diaphoretic Neurological: Reports Sensation intact, Motor intact and Reflexes intact Course Course 02/27/25 23:15 02/27/25 23:15 Orders, Labs, Meds: Lab Review 02/27/25 02/27/25 22:55 23:15 WBC 9.15 RBC 4.46 L Hgb 13.6 L Hct 41.3 L MCV 92.6 MCH 30.5 MCHC 32.9 RDW Coeff of Adria 14.5 Plt Count 187 Immature Gran % (Auto) 0.2 Neut % (Auto) 81.8 H Lymph % (Auto) 8.4 L [place] % (Auto) 9.3 Eos % (Auto) 0.1 Baso % (Auto) 0.2 Neut # (Auto) 7.5 H Lymph # (Auto) 0.8 [place] # (Auto) 0.9 Eos # (Auto) 0.0 Baso # (Auto) 0.0 Immature Gran # (Auto) 0.0 Sodium 131.2 L Potassium 4.04 Chloride 102.9 Carbon Dioxide 22.7 Anion Gap 9.64 BUN 15.3 Creatinine 0.75 Estimated GFR (MDRD) 99.00 BUN/Creatinine Ratio 20.40 Glucose 118.6 H Lactic Acid 1.14 Calcium 8.87 Total Bilirubin 2.24 H AST 32.1 ALT 22.8 Alkaline Phosphatase 82.3 Total Protein 7.33 Albumin 3.89 Globulin 3.44 Albumin/Globulin Ratio 1.13 Procalcitonin 0.31 H Urine Color [place] Urine Clarity Slightly Urine pH 5.5 Ur Specific [place] 1.020 Urine Protein 2+ H Urine Glucose (UA) 3+ H Urine Ketones 2+ H Urine Blood 3+ H Urine Nitrite Positive H Urine Bilirubin Negative Urine Urobilinogen 1.0 H Ur Leukocyte Esterase Trace H Urine Microscopic RBC 30-50 Urine Microscopic WBC 10-20 Ur Squamous Epith Cells 0-2 Urine Bacteria 3+ Influ A Molecular Assay Negative by naat Influ B Molecular Assay Negative by naat SARS CoV-2 RNA Rapid OMID Negative Orders Category Date Time Status ADMIT OBSERVATION [PLACE PATIENT OBSERVATION] .TO ADMISSION 02/28/25 00:13 Ordered MEDSURG (MONITORED BED) ACTIVITY .BR with BRP CARE 02/28/25 00:13 Ordered GIVE HS SNACK 2100 CARE 02/28/25 00:15 Ordered INTAKE & OUTPUT Q8HR CARE 02/28/25 00:15 Ordered TELEMETRY MONITORING TELE CARE 02/28/25 00:13 Ordered VITAL SIGNS Q8HR CARE 02/28/25 00:15 Ordered ADA 1800 JAIRO. DIET DIETARY 02/28/25 Breakfast Ordered HS SNACK DIETARY 02/28/25 Dinner Ordered Saline Lock [ED IV/MEDIPORT/POWERPORT] .ONCE EMERGENCY 02/27/25 22:44 Active BLOOD CULTURE (ED ONLY) Stat LAB 02/27/25 23:15 Received CBC W/ AUTO DIFF DAILY@0600 LAB 02/28/25 06:00 Ordered CBC W/ AUTO DIFF DAILY@0600 LAB 03/01/25 06:00 Ordered CBC W/ AUTO DIFF Stat LAB 02/27/25 23:15 Completed CMP [COMPREHENSIVE METABOLIC PANEL] Stat LAB 02/27/25 23:15 Completed COMPREHENSIVE METABOLIC PANEL DAILY@0600 LAB 02/28/25 06:00 Ordered COMPREHENSIVE METABOLIC PANEL DAILY@0600 LAB 03/01/25 06:00 Ordered COVID [SARS COV-2 RNA RAPID OMID] Stat LAB 02/27/25 22:55 Completed FLU A & B MOLECULAR [FLU A/B MOLECULAR] Stat LAB 02/27/25 22:55 Completed LACTIC ACID Stat LAB 02/27/25 23:15 Completed PROCALCITONIN Stat LAB 02/27/25 23:15 Completed URINALYSIS C & S IF INDICATED Stat LAB 02/27/25 22:55 Completed URINE CULTURE Stat LAB 02/27/25 22:55 Received 0.9 % Sodium Chloride [Saline Flush] Meds 02/27/25 22:44 Active 1 syr IVF PRN PRN Acetaminophen [Tylenol] Meds 02/28/25 00:18 Ordered 650 mg PO Q6H PRN Atenolol [Tenormin] Meds 02/28/25 09:00 Ordered 50 mg PO DAILY Ceftriaxone/D5w 1 gm Premix [Rocephin 1 gm/50 ml D5w] Meds 02/28/25 00:30 Active 1 gm in 50 ml IV BEDTIME Empaglifozin [Jardiance] Meds 02/28/25 09:00 Ordered 10 mg PO DAILY Gentamicin Sulfate Meds 02/28/25 00:12 Discontinued 40 mg .ROUTE .STK-MED ONE Gentamicin Sulfate 80 mg Meds 02/28/25 00:01 Active 0.9 % Sodium Chloride [Sodium Chloride 100Ml] 100 ml IV ONCE Metformin HCl [Glucophage] Meds 02/28/25 00:30 Ordered 500 mg PO BIDWMEAL Ondansetron HCl/Pf [Zofran Sdv] Meds 02/28/25 00:18 Ordered 4 mg IVP 3-4XD PRN SODIUM CHLORIDE 0.9% 1000 ML @ 100 MLS/HR Meds 02/28/25 00:30 Ordered Sacubitril/Valsartan [Entresto 24 mg-26 mg Tablet] Meds 02/28/25 09:00 Ordered 1 each PO BID Sodium Chloride 0.9% [Sodium Chloride] 1,000 ml Meds 02/27/25 23:17 Active IV 250 mls/hr dabigatran etexilate [Pradaxa] Meds 02/28/25 09:00 Ordered 150 mg PO BID CHEST, 1V AP ONLY Stat RADS 02/27/25 23:59 Ordered Medications Generic Name Dose Route Start Last Admin Trade Name Freq PRN Reason Stop Dose Admin Sodium Chloride 1,000 mls @ 250 mls/hr 02/27/25 23:17 02/27/25 23:52 Sodium Chloride IV 02/28/25 03:16 250 mls/hr .Q4H ONE Administration CEFTRIAXONE/D5W 1 GM PREMIX 1 gm in 50 mls @ 100 mls/hr 02/28/25 00:30 Rocephin 1 Gm/50 Ml D5w IV 03/03/25 00:29 BEDTIME [place] Gentamicin Sulfate 80 mg/ 102 mls @ 200 mls/hr 02/28/25 00:01 02/28/25 00:18 Sodium Chloride IV 02/28/25 00:31 200 mls/hr ONCE ONE Administration Sodium Chloride 1 syr 02/27/25 22:44 0.9% Sodium Chloride 10 Ml Disp.Syrin IVF PRN PRN To flush IV Urine is suggestive of infection . Will give both rocephin and one time dose of gent (to cover any possible resistant organism). He is too weak to ambulate. Will do a CXR for completion and case discussed with hospitalist and admit to OBS. Currently resting comfortably. BP 133/88 Vital Signs: Temp Pulse Resp BP Pulse Ox O2 Del Method 02/27/25 23:37 70 16 140/77 92 L 02/27/25 23:08 18 Room Air 02/27/25 22:38 99.4 F 70 18 162/88 H 94 L Discharge Plan Discharge Patient Disposition: PLACED OBSERVATION Discharge Problem: Sepsis Urinary tract infection Qualifiers: Hematuria presence: with hematuria Did you review [place] TANK FURNACE OPERATOR for ALL controlled substances?: Not Applicable ED Provider: JONH ROY Condition: Fair
[2025-02-27 23:27] LABS: IMMATURE GRANULOCYTE # (AUTO) 0.0 (0.0-1.0); IMMATURE GRANULOCYTE % (AUTO) 0.2 % (0.0-5.0); RDW COEFFICIENT OF VARIATION 14.5 % (11.6-14.8)
[2025-02-27 23:37] LABS: LEUKOCYTE ESTERASE ,URINE Trace (NEGATIVE); URINE, BLOOD 3+ (NEGATIVE)
[2025-02-27 23:39] LABS: GLUCOSE, URINE (UA) 3+ (NEGATIVE); SQUAMOUS EPITHELIAL CELL,UR 0-2 (0-5); URINE RBC, MICROSCOPIC 30-50 (0-2)
[2025-02-27 23:40] LABS: CREATININE 0.75 mg/dL (0.60-1.10)
[2025-02-27 23:46] LABS: MOLECULAR FLU A NEGATIVE BY NAAT (NEGATIVE); MOLECULAR FLU B NEGATIVE BY NAAT (NEGATIVE); SARS COV-2 RNA RAPID NAAT NEGATIVE (NEGATIVE)
[2025-02-27] MEDS: SODIUM CHLORIDE 1,000 ML IV ONE (23:52)
[2025-02-28] MEDS: SODIUM CHLORIDE IV ONE (00:18)
[2025-02-28] MEDS: GENTAMICIN SULFATE IV ONE (00:18)
[2025-02-28] MEDS: ROCEPHIN 1 GM/50 ML D5W 1 GM/50 ML BAG IV SCH (01:00)
[2025-02-28] MEDS: SODIUM CHLORIDE 1,000 ML IV SCH ×2 (01:05→22:00)
[2025-02-28 01:16] VITALS: BMI 22.6
[2025-02-28] MEDS: GENTAMICIN SULFATE ONE (01:26)
--- NOTE | 2025-02-28 02:01 | DI ---
EXAM: CHEST, ONE-VIEW HISTORY: Fever FINDINGS: Cardiac and mediastinal contours are normal. Pulmonary vasculature is normal. Granulomatous lymph node calcifications of the mediastinum. Lungs are clear. Bony thorax is unremarkable. Left approach pacemaker. IMPRESSION: No acute cardiopulmonary disease
[2025-02-28] MEDS: TYLENOL PO PRN (05:17)
[2025-02-28 05:20] LABS: IMMATURE GRANULOCYTE # (AUTO) 0.0 (0.0-1.0); IMMATURE GRANULOCYTE % (AUTO) 0.2 % (0.0-5.0); RDW COEFFICIENT OF VARIATION 14.4 % (11.6-14.8)
[2025-02-28 05:33] LABS: CREATININE 0.81 mg/dL (0.60-1.10)
[2025-02-28] MEDS: GLUCOPHAGE PO SCH (07:45)
[2025-02-28] MEDS: JARDIANCE PO SCH (08:39)
[2025-02-28] MEDS: ELIQUIS PO SCH (08:39)
[2025-02-28] MEDS: ENTRESTO 24 MG-26 MG TABLET PO SCH (08:39)
[2025-02-28] MEDS: TENORMIN PO SCH (08:39)
--- NOTE | 2025-02-28 09:46 | PCM ---
Date of Service Date Seen by Provider: 02/28/25 Time Seen by Provider: 09:00 Admit Day/Time Admission Date: 02/28/25 Admission Time: 00:56 Reason for Admission Chief Complaint: UTI Hospital Provider Hospital Provider: Mari HINES , [facility] Primary Care Physician Primary Care Physician: MALATHI SHORT APRN History of Present Illness History of Present Illness: 84 year old male with pmhx of HTN, DM, CHF, prostate cancer, and hematuria presented to the ER with complaints of leg weakness that has worsened over the past two days with difficulty walking and fever at home as high as 105. ER workup revealed UA positive for UTI. Patient and report he has a lengthy hx of urinary and prostate issues with prostate cancer in the past. Per , has chronic hematuria and is incontinent of urine frequently. Sees urologist, Dr. Delgado, and has had recent prostate biopsy that was negative. Patient was given rocephin 1gm and gentamycin 80mg in the ER. Procal elevated at 0.31. ER workup o therwise negative. Admitted to [facility] for observation. Patient and his both note that he is feeling much better this morning. Reports weakness has improved some. Currently afebrile after receiving tylenol early this morning. Was able to eat breakfast and is drinking fluids. Patient is agreeable to try ambulating to the chair with staff assist. Case Discussed With Case Discussed With: Patient's case was discussed with previous hospitalist, Lindsay Thompson PA-C [facility] Medical History Dyslipidemia Fishoil E78.4 - OTHER HYPERLIPIDEMIA (ICD-10) COVID-19 virus antibody detected 09/2020 R76.8 - Other specified abnormal immunological findings in serum (ICD-10) Herpes zoster left thoracic B02.9 - Zoster without complications (ICD-10) Foot pain, bilateral L>R M79.671 - Pain in right foot (ICD-10) M79.672 - Pain in left foot (ICD-10) Melanoma left arm C43.9 - Malignant melanoma of skin, unspecified (ICD-10) History of COVID-19 Z86.16 - Personal history of COVID-19 (ICD-10) Recurrent UTI N39.0 - Urinary tract infection, site not specified (ICD-10) Surgical History S/P TURP Z90.79 - Acquired absence of other genital organ(s) (ICD-10) Family History FATHER Diabetes BROTHER Cancer Other No pertinent family history Social History Smoking and tobacco status: Never smoker Alcohol intake: never Substance use type: does not use Special fran needs: No Agree to transfusion: Yes Adopted: No Caregiver/support person: No Foster care: No Household members: spouse Housing: house Marital status: M Lives independently: Yes Daycare: no daycare Number of children: 3 service: Yes status: retired branch: [employer] senior care: No History of recent travel: No Do you think of yourself as: straight/heterosexual Current gender identity: male Seatbelt use: always Helmet use: No Drives intoxicated or rides with intoxicated 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 Water heater temperature set < 120 degrees: Yes Working smoke detector in home: Yes Fire extinguisher in home: Yes Carbon monoxide detector in home: Yes Allergies Allergies Allergy/AdvReac Type Severity Reaction Status Date / Time No Known Allergies Allergy Verified 02/27/25 22:43 Current Medications Home Medications Acetaminophen (Acetaminophen 325 Mg Tablet) 650 mg PO Q6H PRN PRN Reason: Mild/Moderate Pain and/or Fever >/=100.4 Last Admin: 02/28/25 05:17 Dose: 650 mg Apixaban (Apixaban 5 Mg Tab) 5 mg PO BID [facility] Last Admin: 02/28/25 08:39 Dose: 5 mg Atenolol (Atenolol 50 Mg Tablet) 50 mg PO DAILY [place] Last Admin: 02/28/25 08:39 Dose: 50 mg Empagliflozin (Empagliflozin 10 Mg Tablet) 10 mg PO DAILY [place] Last Admin: 02/28/25 08:39 Dose: 10 mg CEFTRIAXONE/D5W 1 GM PREMIX (Rocephin 1 Gm/50 Ml D5w) 1 gm in 50 mls @ 100 mls/hr IV BEDTIME [place] Stop: 11/05/25 00:29 Last Admin: 02/28/25 01:00 CDT Dose: 100 mls/hr Sodium Chloride (Sodium Chloride) 1,000 mls @ 75 mls/hr IV .[id number] [facility] Metformin HCl (Metformin Hcl 500 Mg Tablet) 500 mg PO BIDWM2 [place] On Hold: 02/28/25 08:44 Resume: 03/03/25 08:00 Last Admin: 02/28/25 07:45 Dose: 500 mg Ondansetron HCl (Ondansetron Hcl/Pf 4 Mg/2 Ml Sdv) 4 mg IVP 3-4XD PRN PRN Reason: nausea Sacubitril/Valsartan (Sacubitril/Valsartan 1 Each Tablet) 1 each PO BID [place] Last Admin: 02/28/25 08:39 Dose: 1 each Sodium Chloride (0.9% Sodium Chloride 10 Ml Disp.Syrin) 1 syr IVF PRN PRN PRN Reason: To flush IV omega-3 fatty acids-fish oil 300 mg-1,000 mg capsule (Fish Oil) 1,000 ea PO BID 03/06/16 [History Confirmed 02/27/25] metformin 500 mg tablet 500 mg PO BIDWMEAL #60 tabs 09/03/22 [Rx Confirmed 02/27/25] dabigatran etexilate 150 mg capsule (Pradaxa) 150 mg PO BID #60 caps 03/08/23 [Rx Confirmed 02/27/25] atenolol 50 mg tablet 50 mg PO DAILY #90 tabs 04/01/23 [Rx Confirmed 02/27/25] furosemide 20 mg tablet (Lasix) 20 mg PO DAILY #90 tabs 04/10/23 [Rx Confirmed 02/27/25] empagliflozin 10 mg tablet (Jardiance) 10 mg PO DAILY #90 tabs 04/30/23 [Rx Confirmed 02/27/25] sacubitril 24 mg-valsartan 26 mg tablet (Entresto) 1 tab PO BID Heart failure #180 tabs 04/30/23 [Rx Confirmed 02/27/25] Opioid Naive vs. Tolerant Does Patient Take Opioids?: No Is Patient Opioid Naive?: Yes What is Opioid Naive?: *Opioid Naive implies the patient is not already taking opioids or not chronically receiving opioids on a daily basis. *PRN dosing is not "usually" associated with tolerance. *Patients are at higher risk of over-sedation and aspiration. Is Patient Opioid Tolerant?: No What is Opioid Tolerant?: *Opioid Tolerance implies less than the expected response to an opioid. *Acquired tolerance is defined by the patient taking 60mg of oral morphine daily (or equianalgesic dose of another opioid) for 1 week or more. *Often associated with chronic pain. *May take more than usual dose to achieve desired pain control. Review of Systems Constitutional: Reports Fever, Fatigue and Weakness; Denies Loss of appetite Head: Reports Normocephalic and Atraumatic Eyes: Reports No symptoms Ears: Reports No symptoms Nose: Reports No symptoms Mouth: Reports No symptoms Throat: Reports No symptoms Cardiovascular: Reports No symptoms; Denies Chest pain, Chest Pressure, Heart Murmur or Edema Respiratory: Reports No symptoms; Denies Cough, Shortness of air, Night Sweats or Wheeze Gastrointestinal: Reports No symptoms; Denies Nausea, Vomiting, Diarrhea or Abdominal pain Genitourinary: Reports Hematuria and Incontinent Bladder; Denies Flank Pain Musculoskeletal: Reports Muscle Pain Dermatologic: Denies Rashes or Skin Changes Endocrine: Reports No symptoms Hematology: Reports No symptoms Immunology: Reports No symptoms Neurological: Reports Weakness and Problems with walking; Denies Speech difficulty Psychiatric: Reports No symptoms Physical examination Most Recent Vital Signs: Most Recent Vital Signs Temperature 101.9 F H 02/28/25 05:11 Temperature Source Oral 02/28/25 05:11 Temperature Source Temporal Artery Scan 02/27/25 22:38 Pulse Rate 70 02/28/25 05:11 Respiratory Rate 18 02/28/25 05:11 Blood Pressure 155/84 H 02/28/25 05:11 Blood Pressure Mean 107 02/28/25 05:11 Blood Pressure Left Arm 142/88 02/28/25 00:56 Blood Pressure Location Right Arm 02/28/25 05:11 Blood Pressure Position Supine 02/28/25 05:11 O2 Sat by Pulse Oximetry 95 02/28/25 06:00 Oxygen Delivery Method Nasal Cannula 02/28/25 09:00 Oxygen Flow Rate 2 02/28/25 06:00 Height 5 ft 8 in 02/28/25 00:56 Weight 67.5 kg 02/28/25 00:56 Telemetry Type Remote Telemetry 02/28/25 01:00 LEAD TANK MECHANIC Telemetry Monitoring Started 02/28/25 01:00 LEAD TANK MECHANIC Telemetry Heart Rate 70 02/28/25 01:00 LEAD TANK MECHANIC Telemetry SPO2 99 02/28/25 01:00 LEAD TANK MECHANIC EKG QRS Interval 0.12 H 02/28/25 01:00 LEAD TANK MECHANIC Telemetry Strip Reading V- PACED W/ BBB 02/28/25 01:00 LEAD TANK MECHANIC Appearance: Positive Well-appearing, Well-nourished and No Apparent Distress Skin: Positive Warm, Good Turgor and Good Color; Negative Rashes or Jaundice HEENT: Positive Normocephalic and Atraumatic Neck: Positive Supple and Midline Trachea; Negative Adenopathy Chest/Lungs: Positive Symmetrical With Equal Breath Sounds and Clear to Auscultation Bilaterally; Negative Rales, Rhonci or Wheezes Heart: Positive RRR and Pulses Normal GI/: Positive Soft, Nontender, Bowel Sounds Normal and No Distention; Negative Tender or Mass Musculoskeletal: Positive Not Examined Extremities: Positive Intact Peripheral Pulses and Stable Joints Without Laxity Neurological: Positive Sensation Intact, Alert, Oriented and Other (Muscle strength 4/5 in upper and lower extremities bilaterally) Psychiatric: Positive Appropriate Mood, Appropriate Affect and Intact Memory Labs This Visit Labs This Visit: Labs This Visit 02/27/25 02/27/25 02/28/25 22:55 23:15 05:06 WBC 9.15 8.50 RBC 4.46 L 4.32 L Hgb 13.6 L 13.3 L Hct 41.3 L 40.7 L MCV 92.6 94.2 H MCH 30.5 30.8 MCHC 32.9 32.7 RDW Coeff of Adria 14.5 14.4 Plt Count 187 168 Immature Gran % (Auto) 0.2 0.2 Neut % (Auto) 81.8 H 80.5 H Lymph % (Auto) 8.4 L 9.2 L [place] % (Auto) 9.3 9.5 Eos % (Auto) 0.1 0.0 Baso % (Auto) 0.2 0.6 Neut # (Auto) 7.5 H 6.8 Lymph # (Auto) 0.8 0.8 [place] # (Auto) 0.9 0.8 Eos # (Auto) 0.0 0.0 Baso # (Auto) 0.0 0.1 Immature Gran # (Auto) 0.0 0.0 Sodium 131.2 L 132.9 L Potassium 4.04 3.85 Chloride 102.9 102.1 Carbon Dioxide 22.7 23.7 Anion Gap 9.64 10.95 BUN 15.3 14.3 Creatinine 0.75 0.81 Estimated GFR (MDRD) 99.00 91.00 BUN/Creatinine Ratio 20.40 17.65 Glucose 118.6 H 89.2 Lactic Acid 1.14 Calcium 8.87 8.47 Total Bilirubin 2.24 H 2.06 H AST 32.1 30.8 ALT 22.8 22.0 Alkaline Phosphatase 82.3 76.7 Total Protein 7.33 7.26 Albumin 3.89 3.82 Globulin 3.44 3.44 Albumin/Globulin Ratio 1.13 1.11 Procalcitonin 0.31 H Urine Color [place] Urine Clarity Slightly Urine pH 5.5 Ur Specific [place] 1.020 Urine Protein 2+ H Urine Glucose (UA) 3+ H Urine Ketones 2+ H Urine Blood 3+ H Urine Nitrite Positive H Urine Bilirubin Negative Urine Urobilinogen 1.0 H Ur Leukocyte Esterase Trace H Urine Microscopic RBC 30-50 Urine Microscopic WBC 10-20 Ur Squamous Epith Cells 0-2 Urine Bacteria 3+ Influ A Molecular Assay Negative by naat Influ B Molecular Assay Negative by naat SARS CoV-2 RNA Rapid OMID Negative Microbiology This Visit 02/27/25 22:55 Urine,Random Urine Culture - Preliminary Imaging Imaging: EXAM: CHEST, ONE-VIEW HISTORY: Fever FINDINGS: Cardiac and mediastinal contours are normal. Pulmonary vasculature is normal. Granulomatous lymph node calcifications of the mediastinum. Lungs are clear. Bony thorax is unremarkable. Left approach pacemaker. IMPRESSION: No acute cardiopulmonary disease Review Statement Review Statement: I have independently reviewed and interpreted the labs/EKGs/imaging that were ordered by the ER provider. I have reviewed all outside records that are available currently in our EMR including imaging/notes/labs from previous visits. Plan Plan: 1. UTI- urine culture and blood cultures pending, Rocephin 1gm IV daily, NS at 75mL/hr x 1 bag, procal 0.31, trend procal 2. Hypoxia- SpO2 89% on room air last night, placed on oxygen at 2L/nc. CXR nega tive. Likely related to sleep apnea. Patient and report hx of sleep apnea, but could not tolerate CPAP. Denies any chronic lung conditions. Attempt to wean oxygen 2. HTN- Chronic, continue home medications 3. Afib- Chronic, continue home medications 4. DM Type II- Chronic, continue home meds, holding metformin, accuchecks ACHS 5. HFrEF- Chronic, continue home meds, monitor for fluid overload, last Echo showed EF of 37% 6. Chronic hematuria- sees Dr. Delgado, has had recent biopsy that was negative, hx of prostate cancer 7. Hx of polymyalgia rheumatica- sees Dr. House DVT Prophylaxis:Eliquis BID Time Spent: Greater than 80 minutes spent with patient, 50% of the time spent with this patient was devoted to counseling and coordination of care. Advanced Care Plannin minutes spent discussing advance care planning. Smoking Cessation: 3-10 minutes spent discussing smoking cessation. Disposition: Home with family care Admit to: [facility] OBS Discussed Plan of Care with Dr. Delarosa Medications Medication Orders: Medications Ordered Category Date Time Status 0.9 % Sodium Chloride [Saline Flush] Meds 02/27/25 22:44 Active 1 syr IVF PRN PRN Acetaminophen [Tylenol] Meds 02/28/25 00:18 Active 650 mg PO Q6H PRN Apixaban [Eliquis] Meds 02/28/25 09:00 Active 5 mg PO BID Atenolol [Tenormin] Meds 02/28/25 09:00 Active 50 mg PO DAILY Ceftriaxone/D5w 1 gm Premix [Rocephin 1 gm/50 ml D5w] Meds 02/28/25 00:30 Active 1 gm in 50 ml IV BEDTIME Empaglifozin [Jardiance] Meds 02/28/25 09:00 Active 10 mg PO DAILY Metformin HCl [Glucophage] Meds 02/28/25 07:30 Hold 500 mg PO BIDWM2 Ondansetron HCl/Pf [Zofran Sdv] Meds 02/28/25 00:18 Active 4 mg IVP 3-4XD PRN Sacubitril/Valsartan [Entresto 24 mg-26 mg Tablet] Meds 02/28/25 09:00 Active 1 each PO BID Sodium Chloride 0.9% [Sodium Chloride] 1,000 ml Meds 02/28/25 00:30 Active IV 100 mls/hr
[2025-02-28] MEDS: ZOFRAN SDV IVP PRN (15:59)
[2025-03-01 05:30] LABS: IMMATURE GRANULOCYTE # (AUTO) 0.0 (0.0-1.0); IMMATURE GRANULOCYTE % (AUTO) 0.5 % (0.0-5.0); RDW COEFFICIENT OF VARIATION 14.4 % (11.6-14.8)
[2025-03-01 05:49] LABS: CREATININE 0.8 mg/dL (0.60-1.10)
[2025-03-01] MEDS: SUBLIMAZE IVP ONE (06:57)
--- NOTE | 2025-03-01 10:26 | RS.OTINEVL ---
Subjective Patient information Date of Evaluation: 03/01/25 Date of Arrival on Unit: 02/28/25 Admitted From:: Home Diagnosis: UTI, weakness, PRECAUTIONS: Fall risk, very weak Usual Living Arrangement: With Spouse Living Arrangement Comments: Lives with spouse and 2 dogs Home Environment: House, Stairs (few) and Rail Medical History: Hypertension, Diabetes, CHF, Arthritis and Cancer (prostate) Medical History Comments:: Afib, UTI, polymyalgia rheumatica, Prostate CA, migraines LATEX ALLERGY?: No Surgical History Comments:: pacemaker, 2 hernia, gall bladder, Lithotripsy Medications: see chart Subjective Information/ Patient Comments:: "I just don't know about good health." Level of function Prior to this admission, the patient could do the following:: Independent Selfcare, Independent ADL's, Independent Ambulation, 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 Current Level of Function: Partially Dependent Comments: Pt is very weak. Pt moderate assist to move supine to sit to EOB. Current Equipment Used at Home: No equipment prior to this illness. Interventions Objective Patient Orientation: Person, Place and Situation Current Interventions: IV's, Oxygen and Telemetry Observation: Pt wearing 2 L of oxygen. Pt appears to be weak and is moderate assist for bed mobility. Pt Min A for transfer from EOB to chair. Pt is not steady. Pt did not want to use a RW but he cooperated. reported he about choked this morning on his meat. He was coughing and coughing. Pt willing to have meat chopped up. Interventions ROM Right Upper Extremity AROM: Slight limitation Left Upper Extremity AROM: WFL's Strength Right Upper Extremity: Mild Weakness Left Upper Extremity: Mild Weakness Sensation Right Upper Extremity: Intact/Normal Left Upper Extremity: Intact/Normal Balance Sitting Balance Static Sitting Balance: Fair Dynamic Sitting Balance: Fair Standing Balance Static Standing Balance: Poor Dynamic Standing Balance: Poor Comments Balance Assessment Comments: Pt is weak. ADL Skills Self Feeding Self Feeding: Set Up Only Grooming Grooming: Min Assist Grooming Set-up: Standing Bathing Bathing UE: CGA Bathing LE: CGA Bathing Set-up: Shower Dressing Dressing UE: CGA and 1 person assist Dressing LE: Min Assist (Pt required min A for RLE. Pt is Independent with Left LE.) and 1 person assist Toilet Management Toilet Hygiene: Min Assist and 1 person assist Toilet Clothing Management: CGA and 1 person assist Comments Comments:: Pt very weak. Pt thought he could sit EOB to complete using urinal but had to stand. Functional Mobility Bed Mobility Rolling R/L: Min Assist Scooting: Mod Assist Supine to Sit: CGA Sit to Supine: Not Tested Transfers Sit to Stand: Min Assist and 1 person assist Stand to Sit: CGA and 1 person assist Stand Pivot Transfers: Min Assist and 1 person assist Ambulation Weight Bearing Status: FWB Assistive Device Used: Rolling Walker Assistance needed with Ambulation: Min Assist Safety Awareness Safety Awareness: Fair NAOMI INDEX SCORE: . Additional Treatment Performed Additional units charged ADL: 12 Time with patient Length of Evaluation: 19 Total treatment time: 31 Activities Do you enjoy playing games?: Yes Would you be interested in leaving your room for activities?: Yes Would you enjoy group activities?: Yes Do you have difficulty with your vision?: Yes Patient Interests:: Watching Television, Puzzles/Games and Visiting/Socializing Patient Education Patient Education: Education of diagnosis, Home Exercise Program, Home Safety and Education of Plan of Care Teaching Recipient: Patient and Family Teaching Methods: Discussion and Demonstration Assessment Problem List:: Decreased level of function, Requires training/education, Decreased safety/Risk of falls and Weakness Rehab Potential: Good Further Therapy Indicated?: Yes Evaluation Complexity: HISTORY: Medium, EXAM OF BODY SYSTEMS: Medium and CLINICAL DECISION MAKING: Medium Patient's Goal(s): To get well and return home. Short Term Goals Goals GOAL 1: Pt to be CGA with Toilet transfers. Goal to be met by: 03/05/25 GOAL 2: Pt to increase dyn. std. bal. to Fair+ for grooming at sink. Goal to be met by: 03/05/25 GOAL 3: Pt to tolerate 15 minutes of Activity level. Goal to be met by: 03/05/25 GOAL 4: Pt to increase BUE strength to 4+/5. Goal to be met by: 03/05/25 GOAL 5: Pt to be CGA with LB dressing. Goal to be met by: 03/05/25 Senior Living Goals GOAL 1: Pt to be I with ADLs. Goal to be met by: 03/09/25 GOAL 2: Pt to be I with functional transfers. Goal to be met by: 03/09/25 GOAL 3: Pt to increase BUE strength to 5/5. Goal to be met by: 03/09/25 Plan Plan of Care: Therapeutic EX, Neuromuscular Re-Educ, Therapeutic Activity and Self-Care/Home Management Frequency of Treatment: 1-2 X day, as tolerated Duration of Treatment: 7-9 days Anticipated Discharge Destination: Home Treatment Diagnosis (ICD 10 Codes): Z74.1 Need for assistance with personal care, M62.81 Weakness, R26.81 Impaired balance. Has the Physician been added for Co-signature?: Yes
--- NOTE | 2025-03-01 12:19 | PCM.PROG ---
Date/Time Seen Date Seen by Provider: 03/01/25 Time Seen by Provider: 08:45 Provider [facility] Chief Complaint Chief Complaint: UTI Subjective Subjective: Reports weakness was better yesterday. Worse again this am. Had coughing fit and choked on his breakfast. Coughing up mucus today. Denies any pain in back or chest. No fever overnight. Per RN, became confused yesterday afternoon and was unsure how to use the urinal and displayed bizarre behavior. Objective Appearance: Positive No Apparent Distress and Alert and Oriented x3 Chest/Lungs: Positive Symmetrical With Equal Breath Sounds, Rhonci (RLL) and Good Air Movement all 4 Lung Chambers Heart: Positive RRR and Pulses Normal GI/: Positive Soft, Nontender, Bowel Sounds Normal and No Distention Musculoskeletal: Positive Other (no edema to BLE) Neurological: Positive Sensation Intact, Motor intact, Reflexes Intact, Alert, Oriented and Other (generalized weakness) Vital Signs Vital Signs: Vital Signs: Last 24 Hours 02/28/25 13:00 02/28/25 13:00 02/28/25 13:51 Temperature Temperature Source Pulse Rate Respiratory Rate Blood Pressure Blood Pressure Mean Blood Pressure Location Blood Pressure Position O2 Sat by Pulse Oximetry Oxygen Delivery Method Nasal Cannula Nasal Cannula Oxygen Flow Rate Telemetry Type Remote Telemetry Telemetry Monitoring Telemetry Heart Rate 70 Telemetry SPO2 99 EKG QRS Interval 0.12 H Telemetry Strip Reading V paced with BBB 02/28/25 13:51 02/28/25 14:00 02/28/25 15:00 Temperature 97.0 F L Temperature Source Temporal Artery Scan Pulse Rate 70 Respiratory Rate 18 Blood Pressure 132/77 Blood Pressure Mean 95 Blood Pressure Location Left Arm Blood Pressure Position Sitting O2 Sat by Pulse Oximetry 99 Oxygen Delivery Method Nasal Cannula Nasal Cannula Nasal Cannula Oxygen Flow Rate 2 2 Telemetry Type Telemetry Monitoring Telemetry Heart Rate Telemetry SPO2 EKG QRS Interval Telemetry Strip Reading 02/28/25 16:00 02/28/25 17:00 02/28/25 17:52 Temperature Temperature Source Pulse Rate Respiratory Rate Blood Pressure Blood Pressure Mean Blood Pressure Location Blood Pressure Position O2 Sat by Pulse Oximetry Oxygen Delivery Method Nasal Cannula Nasal Cannula Nasal Cannula Oxygen Flow Rate Telemetry Type Telemetry Monitoring Telemetry Heart Rate Telemetry SPO2 EKG QRS Interval Telemetry Strip Reading 02/28/25 17:56 02/28/25 19:00 02/28/25 19:00 Temperature 98.2 F Temperature Source Temporal Artery Scan Pulse Rate 78 Respiratory Rate 18 Blood Pressure 107/57 L Blood Pressure Mean 73 Blood Pressure Location Right Radial Artery Blood Pressure Position O2 Sat by Pulse Oximetry 99 Oxygen Delivery Method Nasal Cannula Room Air Oxygen Flow Rate 2 Telemetry Type Remote Telemetry Telemetry Monitoring Continues Telemetry Heart Rate 70 Telemetry SPO2 EKG QRS Interval 0.08 Telemetry Strip Reading V PACED 02/28/25 19:40 02/28/25 20:00 02/28/25 20:00 Temperature Temperature Source Pulse Rate Respiratory Rate Blood Pressure Blood Pressure Mean Blood Pressure Location Blood Pressure Position O2 Sat by Pulse Oximetry Oxygen Delivery Method Room Air Room Air Room Air Oxygen Flow Rate Telemetry Type Telemetry Monitoring Telemetry Heart Rate Telemetry SPO2 EKG QRS Interval Telemetry Strip Reading 02/28/25 21:00 02/28/25 21:45 02/28/25 22:00 Temperature 98.0 F Temperature Source Oral Pulse Rate 69 Respiratory Rate 16 Blood Pressure 105/66 Blood Pressure Mean 79 Blood Pressure Location Left Arm Blood Pressure Position Supine O2 Sat by Pulse Oximetry 97 Oxygen Delivery Method Room Air Room Air Nasal Cannula Oxygen Flow Rate Telemetry Type Telemetry Monitoring Telemetry Heart Rate Telemetry SPO2 EKG QRS Interval Telemetry Strip Reading 02/28/25 23:00 03/01/25 00:00 03/01/25 01:00 Temperature Temperature Source Pulse Rate Respiratory Rate Blood Pressure Blood Pressure Mean Blood Pressure Location Blood Pressure Position O2 Sat by Pulse Oximetry Oxygen Delivery Method Nasal Cannula Nasal Cannula Nasal Cannula Oxygen Flow Rate Telemetry Type Telemetry Monitoring Telemetry Heart Rate Telemetry SPO2 EKG QRS Interval Telemetry Strip Reading 03/01/25 01:00 03/01/25 02:00 03/01/25 02:00 Temperature 97.9 F Temperature Source Temporal Artery Scan Pulse Rate 70 Respiratory Rate 18 Blood Pressure 134/74 Blood Pressure Mean 94 Blood Pressure Location Left Arm Blood Pressure Position Supine O2 Sat by Pulse Oximetry 95 Oxygen Delivery Method Nasal Cannula Nasal Cannula Oxygen Flow Rate 2 Telemetry Type Remote Telemetry Telemetry Monitoring Continues Telemetry Heart Rate 70 Telemetry SPO2 EKG QRS Interval 0.12 H Telemetry Strip Reading V paced with BBB 03/01/25 03:00 03/01/25 04:00 03/01/25 05:00 Temperature Temperature Source Pulse Rate Respiratory Rate Blood Pressure Blood Pressure Mean Blood Pressure Location Blood Pressure Position O2 Sat by Pulse Oximetry Oxygen Delivery Method Nasal Cannula Nasal Cannula Nasal Cannula Oxygen Flow Rate Telemetry Type Telemetry Monitoring Telemetry Heart Rate Telemetry SPO2 EKG QRS Interval Telemetry Strip Reading 03/01/25 05:23 03/01/25 05:35 03/01/25 06:00 Temperature 98.3 F Temperature Source Temporal Artery Scan Pulse Rate 70 Respiratory Rate 18 Blood Pressure 143/87 H Blood Pressure Mean 105 Blood Pressure Location Left Arm Blood Pressure Position Supine O2 Sat by Pulse Oximetry 95 96 Oxygen Delivery Method Nasal Cannula Nasal Cannula Nasal Cannula Oxygen Flow Rate 2 2 Telemetry Type Telemetry Monitoring Telemetry Heart Rate Telemetry SPO2 EKG QRS Interval Telemetry Strip Reading 03/01/25 07:00 03/01/25 08:00 03/01/25 10:00 Temperature 98.7 F Temperature Source Oral Pulse Rate 69 Respiratory Rate 14 Blood Pressure 132/79 Blood Pressure Mean 96 Blood Pressure Location Left Arm Blood Pressure Position Sitting O2 Sat by Pulse Oximetry 96 Oxygen Delivery Method Room Air Nasal Cannula Oxygen Flow Rate 2 Telemetry Type Remote Telemetry Telemetry Monitoring Continues Telemetry Heart Rate 70 Telemetry SPO2 EKG QRS Interval 0.14 H Telemetry Strip Reading V paced with BBB 03/01/25 10:30 Temperature Temperature Source Pulse Rate Respiratory Rate Blood Pressure Blood Pressure Mean Blood Pressure Location Blood Pressure Position O2 Sat by Pulse Oximetry 96 Oxygen Delivery Method Nasal Cannula Oxygen Flow Rate 2 Telemetry Type Telemetry Monitoring Telemetry Heart Rate Telemetry SPO2 EKG QRS Interval Telemetry Strip Reading Lab Results Lab Results: Lab Results: Last 24 Hours 03/01/25 05:10 WBC 6.28 RBC 4.06 L Hgb 12.6 L Hct 38.2 L MCV 94.1 H MCH 31.0 MCHC 33.0 RDW Coeff of Adria 14.4 Plt Count 161 Immature Gran % (Auto) 0.5 Neut % (Auto) 73.2 Lymph % (Auto) 10.8 Bowie % (Auto) 12.4 H Eos % (Auto) 2.5 Baso % (Auto) 0.6 Neut # (Auto) 4.6 Lymph # (Auto) 0.7 Bowie # (Auto) 0.8 Eos # (Auto) 0.2 Baso # (Auto) 0.0 Immature Gran # (Auto) 0.0 Sodium 134.9 Potassium 3.87 Chloride 104.2 Carbon Dioxide 28.9 Anion Gap 5.67 BUN 15.8 Creatinine 0.80 Estimated GFR (MDRD) 92.00 BUN/Creatinine Ratio 19.75 Glucose 104.8 Calcium 8.43 Total Bilirubin 1.08 AST 40.5 ALT 27.8 Alkaline Phosphatase 84.9 Total Protein 6.22 L Albumin 3.10 L Globulin 3.12 Albumin/Globulin Ratio 0.99 Procalcitonin 1.30 H Additional Comments Additional Comments: I have independently reviewed and interpreted the labs/EKGs/imaging ordered during this hospital stay. I have reviewed outside records that are available in our EMR that pertain to medical stay including imaging/notes/labs from previous visits. Active Medications Active Medications: Medications Generic Name Dose Route Start Last Admin Trade Name Freq PRN Reason Stop Dose Admin Acetaminophen 650 mg 02/28/25 00:18 02/28/25 14:57 Acetaminophen 325 Mg Tablet PO 650 mg Q6H PRN Administration Mild/Moderate Pain and/or Fever >/=100.4 Apixaban 5 mg 02/28/25 09:00 03/01/25 08:16 Apixaban 5 Mg Tab PO 5 mg BID [place] Administration Atenolol 50 mg 02/28/25 09:00 03/01/25 08:17 Atenolol 50 Mg Tablet PO 50 mg DAILY [place] Administration Empagliflozin 10 mg 02/28/25 09:00 03/01/25 08:16 Empagliflozin 10 Mg Tablet PO 10 mg DAILY [place] Administration CEFTRIAXONE/D5W 1 GM PREMIX 1 gm in 50 mls @ 100 mls/hr 02/28/25 00:30 02/28/25 20:15 Rocephin 1 Gm/50 Ml D5w IV 03/03/25 00:29 100 mls/hr BEDTIME [place] Administration Sodium Chloride 1,000 mls @ 75 mls/hr 02/28/25 23:00 03/01/25 11:55 Sodium Chloride IV 75 mls/hr .[id number] [place] Administration Metformin HCl 500 mg 02/28/25 07:30 02/28/25 07:45 Metformin Hcl 500 Mg Tablet PO 500 mg On Hold: 02/28/25 08:44 [id number] [place] Administration Resume: 03/03/25 08:00 Ondansetron HCl 4 mg 02/28/25 00:18 02/28/25 15:59 Ondansetron Hcl/Pf 4 Mg/2 Ml Sdv IVP 4 mg 3-4XD PRN Administration nausea Sacubitril/Valsartan 1 each 02/28/25 09:00 03/01/25 08:16 Sacubitril/Valsartan 1 Each Tablet PO 1 each BID [place] Administration Sodium Chloride 1 syr 02/27/25 22:44 0.9% Sodium Chloride 10 Ml Disp.Syrin IVF PRN PRN To flush IV Plan Plan: 1. Sepsis in setting of UTI - blood culture initially read is gram positive cocci, now read as gram negative rods, repeat cultures ordered today, urine culture of kleb pneumo - covered with Rocephin, procal worsened today, coughing up mucus this am - repeat xray and ordered sputum 2. UTI - urine culture growth of kleb pneumo, sensitive to current regimen, cont Rocephin 1gm IV daily until follow-up cultures are resulted 3. Hypoxia - SpO2 89% on room air again last night, noncompliant with CPAP for sleep apnea, 2L at bedtime while here 4. HTN - Chronic, continue home medications 5. Afib - Chronic, continue home medications 6. DM Type II - Chronic, continue home meds, holding metformin, accuchecks ACHS 7. HFrEF - Chronic, continue home meds, monitor for fluid overload, last Echo showed EF of 37% 8. Chronic hematuria- sees Dr. Delgado, has had recent biopsy that was negative, hx of prostate cancer 8. Hx of polymyalgia rheumatica- sees Dr. House DVT Prophylaxis: Eliquis BID Review Statement Review Statement: I have personally discussed and reviewed the patient's visit/currently labs/imaging/decision making with Dr. Delarosa, my supervising attending. Greater that 50 minutes spent with patient, 50% of the time spent with this patient was devoted to counseling and coordination of care.
--- NOTE | 2025-03-01 13:21 | DI ---
EXAM: CHEST FRONTAL AND LATERAL VIEWS HISTORY: Shortness of breath COMPARISON: 02/28/2025 IMPRESSION: Cardiomegaly, atherosclerotic disease and left-sided pacemaker unit are again noted and stable. Subtle density in the left base appears slightly less noticeable since prior study and may represent atelectasis or mild residual infiltrate/pneumonia. There is no vascular congestion or visible pleural fluid. No pneumothorax. Calcifications are consistent with old granulomatous disease. No acute osseous finding.
[2025-03-01] MEDS: ZITHROMAX PO SCH (13:56)
--- NOTE | 2025-03-01 14:13 | RS.SWEVAL ---
Subjective Date of Evaluation: 03/01/25 Diagnosis: Esophageal dysphagia Current Diet: regular Current Subjective/complaints:: Patient reported choking during breakfast. Nursing reported to DIRECTOR OF TRANSPORTATION. General Information General Patient Orientation: Person, Place, Time and Situation Is Patient able to Repeat Directions?: Yes Oral-Facial Assessment Face Facial Symmetry: Symmetrical Dental/Labial Mouth Occlusion: Normal Lingual Tip Lateralization: Normal Comments: adequate lingual strength Palate and Pharynx Velopharyngeal Movement: Normal Food Presentation Solids Food Presented: Mechanical Soft Behaviors/Comments: Pt exhibited some difficulty chewing meats. No s/s of aspiration. Liquids Liquid Presented: Thin Behaviors/Comments: no difficulty noted Recommendations: Dysphagia Evaluation Dietary Recommendations: Minced and Moist and Thin Dysphagia Swallow Precautions/Strategies: Sitting Upright (90 deg), Small Bites and Sips and Alternate Liquids/Solids Comments:: Patient given instructions to assist with esophageal dysphagia. He was prompted during his lunch meal to follow recommendations. also present and given verbal recommendations also. Summary Dysphagia Evaluation Summary: Patient was seen for a bedside dysphagia evaluation due to c/o choking during breakfast. During the evaluation, the and patient reported a history of esophageal stricture and multiple stretching procedures. They stated the last procedure has been several years, the date unknown. They provided a history where the patient has had difficulty which would cause choking at times or the patient to throw up his food. The patient reports that it feels like food gets stuck all the time. He was observed with his lunch meal. No difficulty was observed during the meal, however he required multiple prompts to use safe eating strategies. Further Therapy Indicated?: Yes Rehab Potential: Good Short Term Goals Goal #1: Tolerate minced and moist diet without s/s of aspiration. Goal to be met by: 03/08/25 Goal #2: Follow safe swallow techniques Goal to be met by: 03/08/25 Digital Technician Goals Goal #1: Safely tolerate least restrictive diet while maintaining nutrition/hydratio Goal to be met by: 03/08/25 Plan Duration of Treatment: 1 Week Frequency of Treatment: 1-2 X day, as tolerated Anticipated Discharge Destination: Home Treatment Code (1) Esophageal dysphagia: Code(s): R13.19 - Other dysphagia
--- NOTE | 2025-03-01 16:38 | RS.PTINEVL ---
Subjective Patient information Date of Evaluation: 03/01/25 Date of Arrival on Unit: 02/28/25 Admitted From:: Home Diagnosis: UTI Usual Living Arrangement: With Spouse Living Arrangement Comments: Lives with spouse and 2 dogs Home Environment: House, Stairs (few) and Rail Medical History: Hypertension, Diabetes, CHF, Arthritis and Cancer (prostate) Medical History Comments:: Afib, UTI, polymyalgia rheumatica, Prostate CA, migraines LATEX ALLERGY?: No Surgical History Comments:: pacemaker, 2 hernia, gall bladder, Lithotripsy Medications: see chart Subjective Information/ Patient Comments:: Mr. Wyatt states he could not stand up without help this morning. States he still feels weak, but better than he felt earlier today. States he does not use an assistive device at home. Level of function Prior to this admission, the patient could do the following:: Independent Selfcare, Independent ADL's, Independent Ambulation, Perform Network Support Manager/Cooking and Drive Current Level of Function: Partially Dependent Current Equipment Used at Home: No equipment prior to this illness. Interventions Objective Patient Orientation: Person, Place, Time and Situation Current Interventions: IV's and Telemetry Observation: Pt presents sitting up in chair. Range of Motion ROM Right Upper Extremity AROM: WFL's Left Upper Extremity AROM: WFL's Right Lower Extremity AROM: WFL's Left Lower Extremity AROM: WFL's Muscle Strength Muscle Strength Right Lower Extremity: Mild Weakness Left Lower Extremity: Mild Weakness Comments:: bilateral hips grossly 4/5, Bilateral quads and HS 4+/5, ankles 4+/5. Sensation Sensation Right Lower Extremity: Intact/Normal Left Lower Extremity: Intact/Normal Balance Sitting Balance and Reactions Static Sitting Balance: Good Dynamic Sitting Balance: Good Standing Balance and Reactions Static Standing Balance: Good Dynamic Standing Balance: Fair (+) Functional Mobility Transfers Sit to Stand: Supervision, CGA and 1 person assist Stand to Sit: Supervision, CGA and 1 person assist Stand Pivot Transfers: Supervision, CGA and 1 person assist Safety Awareness Safety Awareness: Fair NAOMI INDEX SCORE: NA Ambulation Ambulation Weight Bearing Status: FWB Assistive Device Used: Rolling Walker Orthotic/Prosthetic Device: No Distance: 150 feet Assistance needed with Ambulation: CGA Quality of Ambulation: Pt veers from a straight path mildly. At times, he needed cues to place the walker down appropriately. He would hold the back legs of the walker off the floor to avoid making noise. Gait Deviations: Narrow Based gait, Short stride and Deviates from path Factors Affecting Ambulation: Decreased Balance, Weakness and Decreased Safety Treatment time Time with patient Length of Evaluation: 16 mins Total treatment time: 21 (mins) Patient Education Education Patient Education: Education of diagnosis, Activity Modification and Education of Plan of Care Teaching Recipient: Patient Teaching Methods: Discussion Comments: safety with transfers, use of rolling walker Assessment Assessment Problem List:: Decreased level of function, Decreased safety/Risk of falls and Weakness Rehab Potential: Good Further Therapy Indicated?: Yes Candidate for Swing Bed for Therapy Services?: Yes, but depending on progress over the next few days. Evaluation Complexity: HISTORY: Medium (Diabetes, HTN, CHF, Prostate Ca), EXAM OF BODY SYSTEMS: Medium, CLINICAL PRESENTATION: Medium and CLINICAL DECISION MAKING: Medium Patient's Goal(s): His goal is to return home. Short Term Goals GOAL #1: pt independent with supine to sit. Goal to be met by: 03/05/25 GOAL #2: Transfer sup to/from sit SBA-CGA of 1 . Goal to be met by: 03/05/25 GOAL #3: Transfer sit to/from stand SBA. Goal to be met by: 03/05/25 GOAL #4: Pt will amb with AAD 150 ft with CGA and maintain a straight path. Goal to be met by: 03/05/25 Comments:: . GOAL #5: Pt able to maintain standing balance against moderate perturbations. Goal to be met by: 03/05/23 Marine Electrician Helper Goals GOAL #1: Pt independent with all transfers with good safety. Goal to be met by: 03/11/25 GOAL #2: pt amb with AAD functional household distances SBA to independent. Goal to be met by: 03/11/25 GOAL #3: Ascend/descend 2 steps with HR SBA Goal to be met by: 03/11/25 Plan Plan of Care: Therapeutic EX, Neuromuscular Re-Educ, Therapeutic Activity and Self-Care/Home Management Frequency of Treatment: 1-2 X day, as tolerated Duration of Treatment: 1 Week Anticipated Discharge Destination: Home Treatment Diagnosis (ICD 10 Codes): difficulty walking R26.2, impaired balance R26.81, At risk for falls Z91.81 Has the Physician been added for Co-signature?: Yes
[2025-03-01] MEDS: FLORASTOR PO SCH (20:53)
[2025-03-02 05:40] LABS: IMMATURE GRANULOCYTE # (AUTO) 0.0 (0.0-1.0); IMMATURE GRANULOCYTE % (AUTO) 0.2 % (0.0-5.0); RDW COEFFICIENT OF VARIATION 14.5 % (11.6-14.8)
[2025-03-02 05:55] LABS: CREATININE 0.71 mg/dL (0.60-1.10)
--- NOTE | 2025-03-02 11:24 | PCM.PROG ---
Date/Time Seen Date Seen by Provider: 03/02/25 Time Seen by Provider: 08:30 Provider [facility]ALT [facility] Chief Complaint Chief Complaint: UTI Subjective Subjective: Feeling better this am. Worked with PT yesterday and did well. Mornings appear to be worse for him at this time. Breathing feels better. Objective Appearance: Positive No Apparent Distress and Alert and Oriented x3 Chest/Lungs: Positive Symmetrical With Equal Breath Sounds, Rhonci (bilateral lung bases) and Good Air Movement all 4 Lung Chambers Heart: Positive RRR and Pulses Normal GI/: Positive Soft, Nontender, Bowel Sounds Normal and No Distention Musculoskeletal: Positive Other (no edema) Neurological: Positive Sensation Intact, Motor intact, Reflexes Intact, Alert, Oriented and Other (generalized weakness) Vital Signs Vital Signs: Vital Signs: Last 24 Hours 03/01/25 13:00 03/01/25 13:25 03/01/25 14:00 Temperature 98.0 F Temperature Source Temporal Artery Scan Pulse Rate 67 Pulse Rate [Apical] Respiratory Rate 14 Blood Pressure 132/77 Blood Pressure Mean 95 Blood Pressure Location Left Arm Blood Pressure Position O2 Sat by Pulse Oximetry 89 L 95 Oxygen Delivery Method Room Air Room Air Oxygen Flow Rate Telemetry Type Remote Telemetry Telemetry Monitoring Continues Telemetry Heart Rate 71 Telemetry SPO2 EKG QRS Interval 0.12 H Telemetry Strip Reading V paced with BBB 03/01/25 15:10 03/01/25 18:00 03/01/25 19:00 Temperature 99.8 F Temperature Source Oral Pulse Rate 70 Pulse Rate [Apical] Respiratory Rate 14 Blood Pressure 128/71 Blood Pressure Mean 90 Blood Pressure Location Left Arm Blood Pressure Position O2 Sat by Pulse Oximetry 98 95 Oxygen Delivery Method Nasal Cannula Nasal Cannula Oxygen Flow Rate 2 2 Telemetry Type Remote Telemetry Telemetry Monitoring Continues Telemetry Heart Rate 70 Telemetry SPO2 96 EKG QRS Interval 0.07 Telemetry Strip Reading PACED 03/01/25 19:10 03/01/25 20:00 03/01/25 21:55 Temperature 97.6 F Temperature Source Temporal Artery Scan Pulse Rate 69 Pulse Rate [Apical] Respiratory Rate 20 Blood Pressure 134/83 Blood Pressure Mean 100 Blood Pressure Location Left Arm Blood Pressure Position Supine O2 Sat by Pulse Oximetry 97 98 Oxygen Delivery Method Nasal Cannula Room Air Nasal Cannula Oxygen Flow Rate 2 2 Telemetry Type Telemetry Monitoring Telemetry Heart Rate Telemetry SPO2 EKG QRS Interval Telemetry Strip Reading 03/02/25 01:00 03/02/25 02:00 03/02/25 05:39 Temperature 97.5 F L Temperature Source Temporal Artery Scan Pulse Rate 70 Pulse Rate [Apical] Respiratory Rate 16 Blood Pressure 114/68 Blood Pressure Mean 83 Blood Pressure Location Left Arm Blood Pressure Position Supine O2 Sat by Pulse Oximetry 93 L 97 Oxygen Delivery Method Nasal Cannula Nasal Cannula Oxygen Flow Rate 2 2 Telemetry Type Remote Telemetry Telemetry Monitoring Continues Telemetry Heart Rate 70 Telemetry SPO2 97 EKG QRS Interval 0.09 Telemetry Strip Reading PACED 03/02/25 06:00 03/02/25 07:00 03/02/25 07:46 Temperature 97.8 F Temperature Source Temporal Artery Scan Pulse Rate 71 Pulse Rate [Apical] 68 Respiratory Rate 20 20 Blood Pressure 140/60 Blood Pressure Mean 86 Blood Pressure Location Left Arm Blood Pressure Position O2 Sat by Pulse Oximetry 96 Oxygen Delivery Method Nasal Cannula Nasal Cannula Oxygen Flow Rate 2 2 Telemetry Type Remote Telemetry Telemetry Monitoring Continues Telemetry Heart Rate 70 Telemetry SPO2 94 EKG QRS Interval 0.10 Telemetry Strip Reading Paced Lab Results Lab Results: Lab Results: Last 24 Hours 03/02/25 05:17 WBC 5.32 RBC 3.89 L Hgb 11.9 L Hct 36.6 L MCV 94.1 H MCH 30.6 MCHC 32.5 RDW Coeff of Adria 14.5 Plt Count 152 Immature Gran % (Auto) 0.2 Neut % (Auto) 63.5 Lymph % (Auto) 13.7 Bates % (Auto) 16.2 H Eos % (Auto) 5.6 Baso % (Auto) 0.8 Neut # (Auto) 3.4 Lymph # (Auto) 0.7 Bates # (Auto) 0.9 Eos # (Auto) 0.3 Baso # (Auto) 0.0 Immature Gran # (Auto) 0.0 Sodium 136.5 Potassium 3.61 Chloride 107.7 H Carbon Dioxide 28.5 Anion Gap 3.91 BUN 13.1 Creatinine 0.71 Estimated GFR (MDRD) 105.00 BUN/Creatinine Ratio 18.45 Glucose 95.1 Calcium 8.29 L Total Bilirubin 1.17 AST 40.4 ALT 32.2 Alkaline Phosphatase 81.9 Total Protein 5.98 L Albumin 2.95 L Globulin 3.03 Albumin/Globulin Ratio 0.97 Procalcitonin 0.86 H Additional Comments Additional Comments: I have independently reviewed and interpreted the labs/EKGs/imaging ordered during this hospital stay. I have reviewed outside records that are available in our EMR that pertain to medical stay including imaging/notes/labs from previous visits. Active Medications Active Medications: Medications Generic Name Dose Route Start Last Admin Trade Name Freq PRN Reason Stop Dose Admin Acetaminophen 650 mg 02/28/25 00:18 03/01/25 18:35 Acetaminophen 325 Mg Tablet PO 650 mg Q6H PRN Administration Mild/Moderate Pain and/or Fever >/=100.4 Apixaban 5 mg 02/28/25 09:00 03/02/25 08:34 Apixaban 5 Mg Tab PO 5 mg BID [place] Administration Atenolol 50 mg 02/28/25 09:00 03/02/25 08:33 Atenolol 50 Mg Tablet PO 50 mg DAILY [place] Administration Azithromycin 500 mg 03/01/25 13:30 03/02/25 08:34 Azithromycin 250 Mg Tablet PO 03/04/25 13:29 500 mg DAILY [place] Administration Empagliflozin 10 mg 02/28/25 09:00 03/02/25 08:33 Empagliflozin 10 Mg Tablet PO 10 mg DAILY [place] Administration Sodium Chloride 1,000 mls @ 75 mls/hr 02/28/25 23:00 03/02/25 01:30 Sodium Chloride IV 75 mls/hr .[id number] [place] Administration CEFTRIAXONE/D5W 2 GM PREMIX 2 gm in 50 mls @ 100 mls/hr 03/02/25 21:00 Rocephin 2 Gm/50 Ml D5w IV 03/05/25 20:59 BEDTIME [place] Metformin HCl 500 mg 02/28/25 07:30 02/28/25 07:45 Metformin Hcl 500 Mg Tablet PO 500 mg On Hold: 02/28/25 08:44 [id number] [place] Administration Resume: 03/03/25 08:00 Ondansetron HCl 4 mg 02/28/25 00:18 02/28/25 15:59 Ondansetron Hcl/Pf 4 Mg/2 Ml Sdv IVP 4 mg 3-4XD PRN Administration nausea Saccharomyces Boulardii 250 mg 03/01/25 21:00 03/02/25 08:33 Saccharomyces Boulardii 250 Mg Capsule PO 250 mg BID [place] Administration Sacubitril/Valsartan 1 each 02/28/25 09:00 03/02/25 08:33 Sacubitril/Valsartan 1 Each Tablet PO 1 each BID [place] Administration Sodium Chloride 1 syr 02/27/25 22:44 0.9% Sodium Chloride 10 Ml Disp.Syrin IVF PRN PRN To flush IV Assessment (1) Esophageal dysphagia: Status: Acute Code(s): R13.19 - Other dysphagia SNOMED Code(s): 97643134 Plan Plan: 1. Bacteremia due to klebsiella pneumoniae - final culture report completed, discussed recs with pharmacy, will increase rocephin to 2G daily for total of 14 days, repeat cultures obtained yesterday and prelim negative x 24 hours, procal trending down 2. UTI - urine culture growth of kleb pneumo, sensitive to current regimen, increasing Rocephin to 2gm IV daily due to above 3. CAP, left lower lobe - covered with rocephin, added azith for atypical coverage, sputum showing mixed growth at this time 4. Hypoxia - SpO2 continues to drop when patient sleeping, has not had sleep study in 15 years, discussed with patient will likely need new one and trial new CPAP with different masks, agreeable to this plan, 2L at bedtime while here 5. HTN - Chronic, continue home medications 6. Afib - Chronic, continue home medications 7. DM Type II - Chronic, continue home meds, holding metformin, accuchecks ACHS 8. HFrEF - Chronic, continue home meds, monitor for fluid overload, last Echo showed EF of 37% 9. Chronic hematuria- sees Dr. Delgado, has had recent biopsy that was negative, hx of prostate cancer 10. Hx of polymyalgia rheumatica- sees Dr. House DVT Prophylaxis: Eliquis BID Review Statement Review Statement: I have personally discussed and reviewed the patient's visit/currently labs/imaging/decision making with Dr. Delarosa, my supervising attending. Greater that 50 minutes spent with patient, 50% of the time spent with this patient was devoted to counseling and coordination of care.
--- NOTE | 2025-03-02 14:50 | RS.DYSPHTX ---
Dysphagia Treatment Note Date of Note: 03/02/25 Time of Treatment: 14:15 Subjective: Patient was seen for skilled speech therapy. He was pleasant and cooperative during the session. He completed tasks to address his goals. Total treatment time: 30 Short Term Goals Goal #1: Tolerate minced and moist diet without s/s of aspiration. Activity/Accuracy: no difficulties reported Goal #2: Follow safe swallow techniques Activity/Accuracy: patient education given Mcfp Goals Goal #1: Safely tolerate least restrictive diet while maintaining nutrition/hydratio Assessment: Patient is following swallowing recommendations. Continue to follow at this time. Units Charged Swallowing Therapy: 1
[2025-03-02] MEDS: ROCEPHIN 2 GM/50 ML D5W 2 GM/50 ML BAG IV SCH (20:42)
[2025-03-03 05:43] LABS: IMMATURE GRANULOCYTE # (AUTO) 0.0 (0.0-1.0); IMMATURE GRANULOCYTE % (AUTO) 0.3 % (0.0-5.0); RDW COEFFICIENT OF VARIATION 14.4 % (11.6-14.8)
[2025-03-03 05:51] LABS: CREATININE 0.65 mg/dL (0.60-1.10)
[2025-03-03] MEDS: K-DUR PO ONE (09:00)
--- NOTE | 2025-03-03 09:22 | RS.DYSPHTX ---
Dysphagia Treatment Note Date of Note: 03/03/25 Time of Treatment: 08:15 Subjective: Patient was seen for skilled speech therapy. He was alert and upright in bed. He reported that he had no difficulty with his breakfast or dinner last night. Total treatment time: 30 Short Term Goals Goal #1: Tolerate minced and moist diet without s/s of aspiration. Activity/Accuracy: no difficulties reported Goal #2: Follow safe swallow techniques Activity/Accuracy: patient and family education given [employer] Goals Goal #1: Safely tolerate least restrictive diet while maintaining nutrition/hydratio Assessment: Patient is tolerating current diet with no s/s of aspiration. Continue at this time. Units Charged Swallowing Therapy: 1
--- NOTE | 2025-03-03 10:12 | PCM.PROG ---
Date/Time Seen Date Seen by Provider: 03/03/25 Time Seen by Provider: 09:15 Provider Provider[facility] WALT ZIMMERMAN[facility] Chief Complaint Chief Complaint: UTI Subjective Subjective: Breathing better today. Has some nasal congestion. Does not normally wear oxygen. Rash to back present that is itchy. Objective Appearance: Positive No Apparent Distress and Alert and Oriented x3 Chest/Lungs: Positive Symmetrical With Equal Breath Sounds and Clear to Aus cultation Bilaterally (diminished LLL); Negative Rales, Rhonci or Wheezes Heart: Positive RRR and Pulses Normal GI/: Positive Soft, Nontender, Bowel Sounds Normal and No Distention Musculoskeletal: Positive Other (trace edema) and Not Examined Neurological: Positive Sensation Intact, Motor intact, Reflexes Intact, Alert, Oriented and Other (generalized weakness) Additional Findings: macular rash diffuse to back Vital Signs Vital Signs: Vital Signs: Last 24 Hours 03/02/25 13:00 03/02/25 14:00 03/02/25 14:00 Temperature 98.3 F Temperature Source Oral Pulse Rate 70 Respiratory Rate 18 Blood Pressure 110/64 Blood Pressure Mean 79 Blood Pressure Location Right Arm Blood Pressure Position Supine O2 Sat by Pulse Oximetry 95 96 Oxygen Delivery Method Nasal Cannula Nasal Cannula Oxygen Flow Rate 2 2 Telemetry Type Remote Telemetry Telemetry Monitoring Continues Telemetry Heart Rate 70 Telemetry SPO2 96 EKG QRS Interval 0.10 Telemetry Strip Reading Paced 03/02/25 18:00 03/02/25 19:00 03/02/25 20:00 Temperature 97.1 F L Temperature Source Temporal Artery Scan Pulse Rate 70 Respiratory Rate 16 Blood Pressure 136/79 Blood Pressure Mean 98 Blood Pressure Location Left Arm Blood Pressure Position Sitting O2 Sat by Pulse Oximetry 99 Oxygen Delivery Method Room Air Nasal Cannula Oxygen Flow Rate 2 Telemetry Type Remote Telemetry Telemetry Monitoring Continues Telemetry Heart Rate 70 Telemetry SPO2 93 EKG QRS Interval 0.12 H Telemetry Strip Reading V PACED W/ BBB 03/02/25 20:00 03/02/25 21:28 03/03/25 01:00 Temperature 98.1 F Temperature Source Temporal Artery Scan Pulse Rate 71 Respiratory Rate 16 Blood Pressure 135/73 Blood Pressure Mean 93 Blood Pressure Location Left Arm Blood Pressure Position Supine O2 Sat by Pulse Oximetry 95 97 Oxygen Delivery Method Nasal Cannula Nasal Cannula Oxygen Flow Rate 2 2 Telemetry Type Remote Telemetry Telemetry Monitoring Continues Telemetry Heart Rate 70 Telemetry SPO2 94 EKG QRS Interval 0.13 H Telemetry Strip Reading V paced w/ BBB 03/03/25 02:00 03/03/25 05:33 03/03/25 05:42 Temperature 98.0 F 97.6 F Temperature Source Temporal Artery Scan Temporal Artery Scan Pulse Rate 70 80 Respiratory Rate 18 16 Blood Pressure 159/90 H 130/73 Blood Pressure Mean 113 92 Blood Pressure Location Left Arm Left Arm Blood Pressure Position Supine Supine O2 Sat by Pulse Oximetry 95 93 L 92 L Oxygen Delivery Method Nasal Cannula Nasal Cannula Nasal Cannula Oxygen Flow Rate 2 2 Telemetry Type Telemetry Monitoring Telemetry Heart Rate Telemetry SPO2 EKG QRS Interval Telemetry Strip Reading 03/03/25 07:00 03/03/25 07:20 Temperature Temperature Source Pulse Rate Respiratory Rate Blood Pressure Blood Pressure Mean Blood Pressure Location Blood Pressure Position O2 Sat by Pulse Oximetry Oxygen Delivery Method Nasal Cannula Oxygen Flow Rate 2 Telemetry Type Remote Telemetry Telemetry Monitoring Continues Telemetry Heart Rate 70 Telemetry SPO2 90 L EKG QRS Interval Telemetry Strip Reading Ventricular Paced Lab Results Lab Results: Lab Results: Last 24 Hours 03/03/25 05:25 WBC 7.07 RBC 3.89 L Hgb 12.0 L Hct 36.3 L MCV 93.3 MCH 30.8 MCHC 33.1 RDW Coeff of Adria 14.4 Plt Count 181 Immature Gran % (Auto) 0.3 Neut % (Auto) 68.7 Lymph % (Auto) 12.4 Mcdonald % (Auto) 13.2 H Eos % (Auto) 4.8 Baso % (Auto) 0.6 Neut # (Auto) 4.9 Lymph # (Auto) 0.9 Mcdonald # (Auto) 0.9 Eos # (Auto) 0.3 Baso # (Auto) 0.0 Immature Gran # (Auto) 0.0 Sodium 135.5 Potassium 3.30 L Chloride 105.4 Carbon Dioxide 27.7 Anion Gap 5.70 BUN 9.9 Creatinine 0.65 Estimated GFR (MDRD) 117.00 BUN/Creatinine Ratio 15.23 Glucose 97.8 Calcium 8.02 L Total Bilirubin 1.42 H AST 44.4 ALT 36.8 Alkaline Phosphatase 99.9 Total Protein 6.13 L Albumin 3.05 L Globulin 3.08 Albumin/Globulin Ratio 0.99 Procalcitonin 0.43 H Additional Comments Additional Comments: I have independently reviewed and interpreted the labs/EKGs/imaging ordered during this hospital stay. I have reviewed outside records that are available in our EMR that pertain to medical stay including imaging/notes/labs from previous visits. Active Medications Active Medications: Medications Generic Name Dose Route Start Last Admin Trade Name Freq PRN Reason Stop Dose Admin Acetaminophen 650 mg 02/28/25 00:18 03/01/25 18:35 Acetaminophen 325 Mg Tablet PO 650 mg Q6H PRN Administration Mild/Moderate Pain and/or Fever >/=100.4 Apixaban 5 mg 02/28/25 09:00 03/03/25 09:01 Apixaban 5 Mg Tab PO 5 mg BID [place] Administration Atenolol 50 mg 02/28/25 09:00 03/03/25 09:02 Atenolol 50 Mg Tablet PO 50 mg DAILY [place] Administration Azithromycin 500 mg 03/01/25 13:30 03/03/25 09:01 Azithromycin 250 Mg Tablet PO 03/04/25 13:29 500 mg DAILY [place] Administration Empagliflozin 10 mg 02/28/25 09:00 03/03/25 09:02 Empagliflozin 10 Mg Tablet PO 10 mg DAILY [place] Administration Famotidine 20 mg 03/03/25 10:10 Famotidine Inj 20 Mg/2 Ml Vial IVP 03/03/25 10:11 ONCE ONE CEFTRIAXONE/D5W 2 GM PREMIX 2 gm in 50 mls @ 100 mls/hr 03/02/25 21:00 03/02/25 20:42 Rocephin 2 Gm/50 Ml D5w IV 03/05/25 20:59 100 mls/hr BEDTIME [place] Administration Diphenhydramine HCl 12.5 mg/ 100.25 mls @ 200 mls/hr 03/03/25 10:10 Sodium Chloride IV 03/03/25 10:40 ONCE STA Metformin HCl 500 mg 02/28/25 07:30 02/28/25 07:45 Metformin Hcl 500 Mg Tablet PO 500 mg [id number] [place] Administration Methylprednisolone Sodium Succinate 125 mg 03/03/25 10:10 Methylprednisolone Sod Succ/Pf 125 Mg/2 Ml Vial IVP 03/03/25 10:11 ONCE ONE Ondansetron HCl 4 mg 02/28/25 00:18 02/28/25 15:59 Ondansetron Hcl/Pf 4 Mg/2 Ml Sdv IVP 4 mg 3-4XD PRN Administration nausea Saccharomyces Boulardii 250 mg 03/01/25 21:00 03/03/25 09:00 Saccharomyces Boulardii 250 Mg Capsule PO 250 mg BID [place] Administration Sacubitril/Valsartan 1 each 02/28/25 09:00 03/03/25 09:01 Sacubitril/Valsartan 1 Each Tablet PO 1 each BID [place] Administration Sodium Chloride 1 syr 02/27/25 22:44 0.9% Sodium Chloride 10 Ml Disp.Syrin IVF PRN PRN To flush IV Sodium Chloride 2 spray 03/03/25 10:10 Sodium Chloride 40 Ml Nasal [place] YSMONE PRN PRN Dry Nasal [place] Assessment (1) Esophageal dysphagia: Status: Acute Code(s): R13.19 - Other dysphagia SNOMED Code(s): 11904758 Plan Plan: 1. Bacteremia due to klebsiella pneumoniae - final culture report completed, discussed recs with pharmacy, will increase rocephin to 2G daily for total of 14 days, repeat cultures obtained negative x 48 hours, procal trending down 2. UTI - urine culture growth of kleb pneumo, sensitive to current regimen, increasing Rocephin to 2gm IV daily due to above 3. CAP, left lower lobe - covered with rocephin, added azith for atypical coverage, sputum showing mixed growth at this time 4. Hypoxia - SpO2 continues to drop when patient sleeping, has not had sleep study in 15 years, discussed with patient will likely need new one and trial new CPAP with different masks, agreeable to this plan, 2L at bedtime while here 5. HTN - Chronic, continue home medications 6. Afib - Chronic, continue home medications 7. DM Type II - Chronic, continue home meds, holding metformin, accuchecks ACHS 8. HFrEF - Chronic, continue home meds, monitor for fluid overload, last Echo showed EF of 37% 9. Chronic hematuria- sees Dr. Delgado, has had recent biopsy that was negative, hx of prostate cancer 10. Hx of polymyalgia rheumatica- sees Dr. House 11. Contact Dermatitis - will give steroid, pepcid, benadryl DVT Prophylaxis: Eliquis BID Dispo: Discussed options of returning home and completing antibiotics outpatient, in the home, or stay in hospital for swingbed. and Patient discussing to determine final plan. Review Statement Review Statement: I have personally discussed and reviewed the patient's visit/currently labs/imaging/decision making with Dr. Delarosa, my supervising attending. Greater that 50 minutes spent with patient, 50% of the time spent with this patient was devoted to counseling and coordination of care.
[2025-03-03] MEDS: PEPCID IVP ONE ×2 (10:55→10:57)
[2025-03-03] MEDS: BENADRYL IV STA (10:57)
[2025-03-03] MEDS: SODIUM CHLORIDE IV STA (10:57)
[2025-03-03] MEDS: OCEAN NASAL SPRAY NAS PRN (10:57)
[2025-03-03] MEDS: SOLU-MEDROL 125 MG IVP ONE (10:57)
[2025-03-04 05:06] VITALS: TEMP 97.4
[2025-03-04 05:26] LABS: IMMATURE GRANULOCYTE # (AUTO) 0.0 (0.0-1.0); IMMATURE GRANULOCYTE % (AUTO) 0.3 % (0.0-5.0); RDW COEFFICIENT OF VARIATION 14.0 % (11.6-14.8)
[2025-03-04 05:39] LABS: CREATININE 0.73 mg/dL (0.60-1.10)
--- NOTE | 2025-03-04 08:25 | DCSUM ---
Admission Date Admission Date: 02/28/25 Discharge Date Discharge Date: 03/04/25 Admission Diagnosis Admission Diagnosis: 1. UTI 2. Hypoxia Discharge Diagnosis Discharge Diagnosis: 1. Bacteremia due to klebsiella pneumoniae - Improving, repeat cultures negative for growth, patient to complete 10 days of Rocephin 2G daily 2. UTI - urine culture growth of kleb pneumo, sensitive to current regimen, increased Rocephin to 2gm IV daily due to above 3. CAP, left lower lobe - Improved, completed course of azith today. 4. Hypoxia - SpO2 continues to drop when patient sleeping, has not had sleep study in 15 years, discussed with patient will likely need new one and trial new CPAP with different masks, recommend sleep study in near future 5. HTN - stable 6. Afib - stable 7. DM Type II - stable 8. HFrEF - stable 9. Chronic hematuria- stable 10. Hx of polymyalgia rheumatica- stable 11. Contact Dermatitis - Improved with steroid, pepcid, benadryl Hospital Provider Hospital Provider[facility] WALT ZIMMERMAN, [facility] Physician Primary Care Physician: MALATHI SHORT APRN Summary of History and Physical Summary of History and Physical: 84 year old male with pmhx of HTN, DM, CHF, prostate cancer, and hematuria presented to the ER with complaints of leg weakness that has worsened over the past two days with difficulty walking and fever at home as high as 105. ER workup revealed UA positive for UTI. Patient and report he has a lengthy hx of urinary and prostate issues with prostate cancer in the past. Per , has chronic hematuria and is incontinent of urine frequently. Sees urologist, Dr. Delgado, and has had recent prostate biopsy that was negative. Patient was given rocephin 1gm and gentamycin 80mg in the ER. Procal elevated at 0.31. ER workup otherwise negative. Admitted to [facility] for observation. Patient and his both note that he is feeling much better this morning. Reports weakness has improved some. Currently afebrile after receiving tylenol early this morning. Was able to eat breakfast and is drinking fluids. Patient is agreeable to try ambulating to the chair with staff assist. Hospital Course Subjective: During stay, patient was initially treated for UTI for rocephin 1G daily. Urine culture showed growth of klebsiella pneumoniae. Developed positive blood culture for gram positive cocci that was then read as gram negative rods. Final culture report also found to be Klebsiella pneumoniae. Discussed recommendations with pharmacy. Increased rocephin to 2G daily and recommended course of 7-14 days. Repeat cultures obtained and no growth present to date. Procal elevated on admission and treading down. Patient reported productive cough and was requiring oxygen during the day. Chest x-ray repeated and showed LLL pneumonia. Added azithromycin for atypical coverage and completed course today. Sputum collected and report showed mixed growth. Has not had any further fevers on admission. Weaned off of day time oxygen. Continues to require O2 at night. Has hx of sleep apnea but was unable to tolerate CPAP in the past and does not utilize. Discussed need for new sleep study and recommended trialing new CPAP with different mask since last trial of this was over 15 years ago. Continue 2L at bedtime during stay. Due to above, patient is weak and deconditioned. PT/OT following patient. Patient and unable to bring patient to hospital daily for IV antibiotics and [facility] receiving [facility] antibiotics. Admit to [facility] today. Appearance: Pleasant, No Apparent Distress and Alert HEENT: MMM, Supple and No JVD CVS: No Murmur, No Rubs, No Gallop and No JVD Abdomen: Soft, Non-Tender and No Distention Respiratory: No Dyspnea Extremities: No Edema Vital Signs: Most Recent Vital Signs Temperature 97.4 F L 03/04/25 05:04 Temperature Source Temporal Artery Scan 03/04/25 05:04 Temperature Source Temporal Artery Scan 02/27/25 22:38 Pulse Rate 71 03/04/25 05:04 Respiratory Rate 16 03/04/25 05:04 Blood Pressure 130/72 03/04/25 05:04 Blood Pressure Mean 91 03/04/25 05:04 Blood Pressure Left Arm 142/88 02/28/25 00:56 Blood Pressure Location Left Arm 03/04/25 05:04 Blood Pressure Position Supine 03/04/25 05:04 O2 Sat by Pulse Oximetry 94 L 03/04/25 05:22 Oxygen Delivery Method Room Air 03/04/25 05:22 Oxygen Flow Rate 2 03/03/25 20:00 Height 5 ft 8 in 02/28/25 00:56 Weight 67.5 kg 02/28/25 00:56 Telemetry Type Remote Telemetry 03/04/25 01:00 Telemetry Monitoring Continues 03/04/25 01:00 Telemetry Heart Rate 70 03/04/25 01:00 Telemetry SPO2 92 L 03/04/25 01:00 EKG QRS Interval 0.11 H 03/04/25 01:00 Telemetry Strip Reading V-PACED WITH BBB 03/04/25 01:00 Imaging: EXAM: CHEST, ONE-VIEW HISTORY: Fever FINDINGS: Cardiac and mediastinal contours are normal. Pulmonary vasculature is normal. Granulomatous lymph node calcifications of the mediastinum. Lungs are clear. Bony thorax is unremarkable. Left approach pacemaker. IMPRESSION: No acute cardiopulmonary disease EXAM: CHEST FRONTAL AND LATERAL VIEWS HISTORY: Shortness of breath COMPARISON: 02/28/2025 IMPRESSION: Cardiomegaly, atherosclerotic disease and left-sided pacemaker unit are again noted and stable. Subtle density in the left base appears slightly less noticeable since prior study and may represent atelectasis or mild residual infiltrate/pneumonia. There is no vascular congestion or visible pleural fluid. No pneumothorax. Calcifications are consistent with old granulomatous disease. No acute osseous finding. Lab Results Last 24 Hours: 03/04/25 05:06 WBC 7.97 RBC 4.03 L Hgb 12.5 L Hct 37.2 L MCV 92.3 MCH 31.0 MCHC 33.6 RDW Coeff of Adria 14.0 Plt Count 214 Immature Gran % (Auto) 0.3 Neut % (Auto) 85.1 H Lymph % (Auto) 10.3 [place] % (Auto) 4.0 Eos % (Auto) 0.0 Baso % (Auto) 0.3 Neut # (Auto) 6.8 Lymph # (Auto) 0.8 [place] # (Auto) 0.3 L Eos # (Auto) 0.0 Baso # (Auto) 0.0 Immature Gran # (Auto) 0.0 Sodium 137.2 Potassium 4.18 Chloride 108.7 H Carbon Dioxide 26.2 Anion Gap 6.48 BUN 17.0 Creatinine 0.73 Estimated GFR (MDRD) 102.00 BUN/Creatinine Ratio 23.28 Glucose 158.4 H D Calcium 8.76 Total Bilirubin 1.11 AST 37.4 ALT 39.9 Alkaline Phosphatase 110.6 Total Protein 6.35 Albumin 3.12 L Globulin 3.23 Albumin/Globulin Ratio 0.96 Discharge Instructions Discharge Planning: Discharge Planning > 40 minutes If patient is discharged with left ventricular systolic dysfunction: na Discharged with a beta oneil? [] If no, why not? [] Discharged with an marj/arb? [] If no, why not? [] Discharge Medications: Medications at Discharge (Home Meds & RX) omega-3 fatty acids-fish oil 300 mg-1,000 mg capsule (Fish Oil) 1,000 ea PO BID 03/06/16 metformin 500 mg tablet 500 mg PO BIDWMEAL #60 tabs 09/03/22 dabigatran etexilate 150 mg capsule (Pradaxa) 150 mg PO BID #60 caps 03/08/23 atenolol 50 mg tablet 50 mg PO DAILY #90 tabs 04/01/23 furosemide 20 mg tablet (Lasix) 20 mg PO DAILY #90 tabs 04/10/23 empagliflozin 10 mg tablet (Jardiance) 10 mg PO DAILY #90 tabs 04/30/23 sacubitril 24 mg-valsartan 26 mg tablet (Entresto) 1 tab PO BID Heart failure #180 tabs 04/30/23 Discharge Plan Discharge Discharge Orders: Discharge Patient (ONCE); Ordered 03/04/25 Ordered By: VIKI ANDRADE Patient Disposition: DISCH W/I HOSP TO [facility] Prescriptions: Continued dabigatran etexilate [Pradaxa] 150 mg capsule 150 mg PO BID Qty: 60 0RF furosemide [Lasix] 20 mg tablet 20 mg PO DAILY Qty: 90 1RF Patient Comments: Pt unsure of exact strength 11/06/2024 omega-3 fatty acids-fish oil [Fish Oil] 1 EACH capsule 1,000 ea PO BID metformin 500 mg tablet 500 mg PO BIDWMEAL Qty: 60 2RF Jardiance 10 mg tablet 10 mg PO DAILY Qty: 90 1RF Entresto 24-26 mg tablet 1 tab PO BID Qty: 180 1RF atenolol 50 mg tablet 50 mg PO DAILY Qty: 90 2RF Did you review [place] [employer] for ALL controlled substances?: No Discussed opioids are addictive and Narcan is available by prescription or from pharmacy.: No Condition: Fair
[2025-03-04 09:57] VITALS: BP 137/74; PULSE 70; RESP 22
[2025-03-04] MEDS: MYCOLOG TP SCH (11:42)
== END 2025-03-04 12:05 | disposition swing bed (61) | DRG 689 ==
LOC: ED 22:36 → MEDSURG B 22:36
PROVIDERS: ADMIT Hospitalist; ATTEND Nurse Practitioner Family
DX: R31.9 Hematuria, unspecified; E11.9 Type 2 diabetes mellitus without complications; N39.0 Urinary tract infection, site not specified; M35.3 Polymyalgia rheumatica; R09.02 Hypoxemia; I48.91 Unspecified atrial fibrillation; I11.0 Hypertensive heart disease with heart failure; B96.1 Klebsiella pneumoniae [K. pneumoniae] as the cause of diseases classified elsewhere; J18.9 Pneumonia, unspecified organism; I50.22 Chronic systolic (congestive) heart failure